=== PATIENT | female | born 1955 | race Caucasian/White ===

== ENCOUNTER → 2016-12-05 | Outpatient (CLI) | payer OTHER ==
[~2016-12-05] MED LIST: ACYC1CAP8 PO; AGM875 PO; CARB25TA12; CLR10; LRS10; MAGN400T6; POTA10CA28; PRLSR20; PRMUNK PO
[2016-12-05 15:30] LABS: URINE APPEARANCE CLEAR (CLEAR); URINE BILIRUBIN NEG (NEG); URINE COLOR YELLOW; URINE NITRITE NEG (NEG); URINE PH 5.5 (4.5-7.5); UROBILINOGEN NEG (NEG)
[2016-12-05 15:32] LABS: MANUAL MICROSCOPIC REQUIRED? NO; REVIEW REQ? NO
== END | disposition home or self-care (01) ==
LOC: C.LABSPEC 14:32
PROVIDERS: ATTEND Physician Assistant
DX: R39.9 Unspecified symptoms and signs involving the genitourinary system (principal); N89.8 Other specified noninflammatory disorders of vagina

== ENCOUNTER → 2017-02-09 | Outpatient (CLI) | payer OTHER ==
[2017-02-09 14:37] LABS: URINE APPEARANCE CLEAR (CLEAR); URINE BILIRUBIN NEG (NEG); URINE COLOR YELLOW; URINE EPITHELIAL CELL AUTO >30 /lpf (0-5); URINE NITRITE POS (NEG); URINE SPECIFIC GRAVITY 1.019 (1.000-1.030); UROBILINOGEN NEG (NEG)
[2017-02-09 14:45] LABS: MANUAL MICROSCOPIC REQUIRED? NO; REVIEW REQ? NO
== END | disposition home or self-care (01) ==
LOC: C.LABSPEC 14:14
PROVIDERS: ATTEND Physician Assistant
DX: N89.8 Other specified noninflammatory disorders of vagina (principal); R39.9 Unspecified symptoms and signs involving the genitourinary system

== ENCOUNTER → 2017-04-07 | Outpatient (CLI) | payer OTHER ==
[~2017-04-07] MED LIST changes: +ACYC-57 PO; -ACYC1CAP8 PO
== END | disposition home or self-care (01) ==
LOC: C.LABSPEC 14:53
PROVIDERS: ATTEND Obstetrics & Gynecology
DX: N39.0 Urinary tract infection, site not specified (principal)

== ENCOUNTER → 2017-04-07 | Outpatient (CLI) | payer OTHER | END | disposition home or self-care (01) | LOC: C.PATHSPEC 13:18 | PROVIDERS: ATTEND Obstetrics & Gynecology | DX: N90.1 Moderate vulvar dysplasia (principal) ==

== ENCOUNTER 2017-05-02 11:37 | Inpatient (IN) | payer OTHER ==
[~2017-05-02] VITALS: Ht 165.1 cm; Wt 59.5 kg
[2017-05-02] MEDS ORDERED: CYCLOBENZAPRINE HCL 10 MG TAB PO STA (12:20)
[2017-05-02] MEDS ORDERED: SODIUM CHLORIDE 0.9% 500ML 500 ML IV STA (12:20)
--- NOTE | 2017-05-02 12:33 | EMERGENCY ROOM VISIT NOTE ---
History Report prepared by Luis: Phil Kemp Under the Supervision of: Dr. Tee Dawson M.D. 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 She notes that she went to put out her cigarette and she slipped backwards onto a wooden ramp. She notes that she landed on her back. She notes back pain and spasms. She currently rates her pain a 7/10 in severity. She notes chills and a mild cough recently. She denies any LOC, head injuries, leg pain, or fevers. EMS administered 50 mcg Fentanyl and 4 mg of Zofran. She denies any history of COPD. She denies any history of lung disease. She takes Tramadol as needed. Source of History: patient, EMS Onset: TROUBLE SHOOTING MECHANIC Position: other (global ) Symptom Intensity: 7/10 Quality: other (mechanical fall) Timing: other (episodic) Associated Symptoms: + chills, + cough (mild), + back pain, No LOC, No fevers Note: She denies any head injuries or leg pain. Review of Systems See HPI for pertinent positives & negatives. A total of 10 systems reviewed and were otherwise negative. Past Medical & Surgical Medical Problems: (1) Back pain (2) HTN (hypertension) Family History No pertinent family history obtained. Social History Smoking Status: Current Every Day Smoker Current/Historical Medications Scheduled Calcium Carbonate-Vitamin D (Calcium + D3 600-200 mg-Unit), 1 TAB PO DAILY Potassium Chloride (Micro-K Ext Rel), 10 MEQ PO BID Ranitidine Hcl (Ranitidine Hcl), 150 MG PO BID Scheduled PRN Docusate Sodium (Docusate Sodium), 100 MG PO DAILY PRN for Constipation Tramadol (Ultram), 50 MG PO Q6H PRN for Pain Allergies Coded Allergies: Benzodiazepines (Unverified Allergy, Mild, ITCH, 05/02/17) Chlordiazepoxide (Unverified Allergy, Mild, ITCH, 05/02/17) Clidinium (Unverified Allergy, Mild, ITCH, 05/02/17) Gabapentin (Unverified Allergy, Mild, ITCH, 05/02/17) Belladonna Alkaloids (Verified Allergy, Unknown, ITCHING, 05/02/17) Methscopolamine (Verified Allergy, Unknown, ., 05/02/17) Yellow Dye (Verified Allergy, Unknown, ., 05/02/17) Physical Exam Vital Signs Date Time Temp Pulse Resp B/P (MAP) Pulse Ox O2 Delivery O2 Flow Rate FiO2 05/02/17 13:40 72 18 119/52 99 Room Air 05/02/17 13:19 99 Nasal Cannula 3.0 05/02/17 11:40 36.6 78 20 144/71 94 Room Air Physical Exam GENERAL: Patient is in no acute distress. HEENT: No acute trauma, normocephalic atraumatic, mucous membranes moist, no nasal congestion, no scleral icterus. NECK: No stridor, no adenopathy, no meningismus, trachea is midline. LUNGS: Clear to auscultation bilaterally, no wheeze, no rhonchi, breath sounds equal. HEART: Without murmurs gallops or rubs, regular rate and rhythm. ABDOMEN: Soft, nontender, bowel sounds positive, no hernias, no peritonitis. BACK: No real focal tenderness to palpation in the lumbar region, no step offs. Severe pain in lumbar region with movement. EXTREMITIES: No cyanosis or edema, full range of motion of all the joints without pain or difficulty, no signs for acute trauma. NEUROLOGIC: Oriented x 3, no acute motor or sensory deficits, no focal weakness. SKIN: No rash, no jaundice, no diaphoresis. Medical Decision & Procedures ER Provider Diagnostic Interpretation: Radiology results as stated below per my review and radiologist interpretation: LUMBAR SPINE WITHOUT CT DOSE: 617.22 mGy.cm HISTORY: Trauma. Pain. fall, pain TECHNIQUE: Multiaxial CT images of the lumbar spine were performed and reformatted in the sagittal and coronal plane without the use of contrast. A dose lowering technique was utilized adhering to the principles of ALARA. COMPARISON: None. FINDINGS: Mild 20% compression deformity superior endplate L2. 3 mm posterior displacement of the posterior superior margin of the L2 vertebral body. Impact upon the spinal canal is minimal. Moderate degenerative disc change throughout the remainder of the lumbar region. Degenerative concavity inferior endplate L3. No additional acute bony abnormality. No significant component of spinal stenosis. Paravertebral soft tissues are unremarkable. IMPRESSION: 1. 20% mild compression deformity superior endplate L2. 2. Slight posterior displacement superior margin L2 vertebral endplate estimated at 3 mm. 3. No significant compromise of the spinal canal or neural foramina. 4. Moderate degenerative change all remaining components of the lumbar spine most prominent inferior endplate L3. This is considered nonacute. Electronically signed by: Arnold Rodriguez M.D. 05/02/2017 1:41 PM Dictated Date/Time: 05/02/2017 1:35 PM Laboratory Results 05/02/17 13:40 05/02/17 13:40 Test 05/02/17 13:13 05/02/17 13:40 Influenza Type A Antigen Neg for Influ A (NEG) Influenza Type B Antigen Neg for Influ B (NEG) Red Blood Count 4.24 M/uL (4.2-5.4) Mean Corpuscular Volume 93.4 fL (80-100) Mean Corpuscular Hemoglobin 30.9 pg (25-34) Mean Corpuscular Hemoglobin Concent 33.1 g/dl (32-36) RDW Standard Deviation 49.0 fL (36.4-46.3) RDW Coefficient of Variation 14.4 % (11.5-14.5) Mean Platelet Volume 9.7 fL (7.4-10.4) Anion Gap 3.0 mmol/L (3-11) Est Creatinine Clear Calc Drug Dose 54.2 ml/min Estimated GFR () 72.2 Estimated GFR (Non- 62.3 BUN/Creatinine Ratio 17.0 (10-20) Calcium Level 9.0 mg/dl (8.5-10.1) Magnesium Level 2.1 mg/dl (1.8-2.4) Laboratory results reviewed by me. Medications Administered Medications (Trade) Dose Ordered Sig/Mendoza Route Start Time Stop Time Status Last Admin Dose Admin Morphine Sulfate (MoRPHine SULFATE INJ) 4 mg Q15M PRN IV 05/02/17 12:30 05/16/17 12:29 05/02/17 13:47 4 MG Cyclobenzaprine HCl (Flexeril Tab) 10 mg NOW STAT PO 05/02/17 12:20 05/02/17 12:25 DC 05/02/17 12:20 10 MG Sodium Chloride 500 ml @ 999 mls/hr Q31M STAT IV 05/02/17 12:20 05/02/17 13:06 DC 05/02/17 12:20 999 MLS/HR ED Course 1212: The patient was evaluated in room A11A. A complete history and physical exam was performed. 1220: Ordered Sodium Chloride 500 ml @ 999 mls/hr IV and Flexeril 10 mg PO 1230: Ordered Morphine Sulfate 4 mg IV 1406: I spoke with Dr. Hoover, orthopedic surgeon. We discussed the patients case. He will consult with the patient. 1412: I spoke with Bony Malcolm PA-C. We discussed the patients case. The patient will be evaluated by the [facility] for further management. Medical Decision The patient is a 61 year old female who presents to the ED with complaints of mechanical fall. Differential diagnoses considered include lumbar compression, fracture, lumbar spasm, lumbar disc herniation, nerve impingement, PNA, viral illness, and influenza. There is no leukocytosis or concerning anemia. No significant electrolyte abnormality or kidney failure. Influenza testing is negative. Chest film does not show any obvious pneumonia. Lumbar spine CT shows an L2 compression fracture with some minimal posterior bony displacement. On exam, the patient did not have any focal neurologic deficits. She was not febrile or toxic. She had intense lower back pain with any movement. The patient received IV morphine, she was given oral Flexeril. With her amount of pain, with the new findings of compression fracture, a hospital stay is required. I did discuss the case with the on-call spinal surgeon as well as the on-call hospitalist. Case management has been involved. Medication Reconcilliation Current Medication List: was personally reviewed by me Blood Pressure Screening Patient's blood pressure: Elevated blood pressure Blood pressure disposition: Elevated BP felt to be situational Consults Time Called: 1403 Consulting Physician: Dr. Hoover, orthopedic surgeon Returned Call: [address] Hoover orthopedic surgeon. We discussed the patients case. He will consult with the patient. Additional Consults: Time Called: 1409 Consulted Physician: Bony Malcolm PA-C Returned Call: 1412 Additional Comments: I spoke with Bony Malcolm PA-C. We discussed the patients case. Impression Primary Impression: Compression fracture of L2 Additional Impression: Fall Scribe Attestation The scribe's documentation has been prepared under my direction and personally reviewed by me in its entirety. I confirm that the note above accurately reflects all work, treatment, procedures, and medical decision making performed by me. Departure Information Dispostion Being Evaluated By Hospitalist Referrals Ludwig Garcia D.OMorelia (PCP) Patient Instructions My [facility] Health Problem Qualifiers Primary Impression: Compression fracture of L2 Additional Impression:
[2017-05-02] MEDS ORDERED: RANI150C4 PO (12:59)
[2017-05-02] MEDS ORDERED: DOCU100C31 PO (12:59)
[2017-05-02] MEDS ORDERED: TRAM-10 PO (12:59)
[2017-05-02] MEDS ORDERED: POTA10CA28 PO (12:59)
[2017-05-02] MEDS ORDERED: CALC500C70 PO (12:59)
[2017-05-02] MEDS: MoRPHine SULFATE 4 MG/ML 1 ML CARP\\VIAL IV PRN ×2 (13:11→13:47)
--- NOTE | 2017-05-02 13:42 | DIAGNOSTIC IMAGING REPORT ---
LUMBAR SPINE WITHOUT CT DOSE: 617.22 mGy.cm HISTORY: Trauma. Pain. fall, pain TECHNIQUE: Multiaxial CT images of the lumbar spine were performed and reformatted in the sagittal and coronal plane without the use of contrast. A dose lowering technique was utilized adhering to the principles of ALARA. COMPARISON: None. FINDINGS: Mild 20% compression deformity superior endplate L2. 3 mm posterior displacement of the posterior superior margin of the L2 vertebral body. Impact upon the spinal canal is minimal. Moderate degenerative disc change throughout the remainder of the lumbar region. Degenerative concavity inferior endplate L3. No additional acute bony abnormality. No significant component of spinal stenosis. Paravertebral soft tissues are unremarkable. IMPRESSION: 1. 20% mild compression deformity superior endplate L2. 2. Slight posterior displacement superior margin L2 vertebral endplate estimated at 3 mm. 3. No significant compromise of the spinal canal or neural foramina. 4. Moderate degenerative change all remaining components of the lumbar spine most prominent inferior endplate L3. This is considered nonacute. Electronically signed by: Arnold Rodriguez M.D. 05/02/2017 1:41 PM Dictated Date/Time: 05/02/2017 1:35 PM
[2017-05-02 14:22] LABS: HEMATOCRIT 39.6 % (37-47); HEMOGLOBIN 13.1 g/dL (12.0-16.0); MEAN CELL VOLUME 93.4 fL (80-100); MEAN CORPUSCULAR HEMOGLOBIN 30.9 pg (25-34); MEAN CORPUSCULAR HGB CONC 33.1 g/dl (32-36); MEAN PLATELET VOLUME 9.7 fL (7.4-10.4); PLATELET COUNT 283 K/uL (130-400); RED CELL DISTRIBUTION WIDTH CV 14.4 % (11.5-14.5); WHITE BLOOD COUNT 10.69 K/uL (4.8-10.8)
[2017-05-02 14:25] LABS: INFLUENZA B ANTIGEN Neg for Influ B (NEG)
[2017-05-02 14:27] LABS: CREATININE 0.98 mg/dl (0.60-1.20); POTASSIUM 4.3 mmol/L (3.5-5.1)
--- NOTE | 2017-05-02 14:31 | DIAGNOSTIC IMAGING REPORT ---
CHEST ONE VIEW PORTABLE CLINICAL HISTORY: cough dyspnea COMPARISON STUDY: 11/22/2011 FINDINGS: Slight prominence left basilar parenchymal markings. Lungs otherwise appear clear. There are no consolidative infiltrates. Diaphragms smooth. Costophrenic angles are sharp. IMPRESSION: Mild left basilar bronchitis. The above report was generated using voice recognition software. It may contain grammatical, syntax or spelling errors. Electronically signed by: Arnold Rodriguez M.D. 05/02/2017 2:29 PM Dictated Date/Time: 05/02/2017 2:28 PM
[2017-05-02] MEDS ORDERED: ACETAMINOPHEN 325 MG TAB PO PRN (15:00)
[2017-05-02] MEDS ORDERED: ONDANSETRON INJ 2 MG/ML 2 ML VIAL IV PRN (15:00)
[2017-05-02] MEDS ORDERED: POLYETHYLENE (MIRALAX) 17 GM PACK PO PRN (15:00)
[2017-05-02] MEDS ORDERED: CALC-388 PO (15:06)
[2017-05-02] MEDS ORDERED: DOCUSATE SODIUM 100 MG CAP PO PRN (15:15)
[2017-05-02] MEDS ORDERED: IV FLUIDS COMPLETED PRN (15:15)
[2017-05-02 15:26] VITALS: O2SAT 97
--- NOTE | 2017-05-02 16:05 | NUR ---
OBS: Patient alert to person and place. Denies numbness or tingling. No edema, strong equal pedal and radial pulses, brisk cap refill. Lungs are clear on 2L NC. Bowel sounds present in all quadrants, passing gas, LBM 12/25. Have not visualized urine yet. Saline lock left hand. Skin is intact. Complains of sharp pain when moving, repositioned patient, and she was comfortable resting in bed. Patient wears glasses and dentures, dentures not present at this time. Patient plans to be discharged to her brothers house.
[2017-05-02 16:09] VITALS: BP 135/78; PULSE 75; TEMP 36.8; O2SAT 99
--- NOTE | 2017-05-02 16:16 | History and Physical ---
History & Physical Date & Time of Service: May 02, 2017 at 15:20 Chief Complaint: Fall, Lumbar pain Primary Care Physician: Ludwig Garcia D.O. History of Present Illness Source: patient, clinic records, hospital records Pt is 61 y/o F with PMH cervical CA with shukri to bone s/p chemo & radiation tx in the and HSV presented to ER via EMS with c/o mid/lower back pain. Pt states this morning she was outside smoking a cigarette and turned and slipped and fell landing first on her buttocks then her back. C/O pain to mid/lower back with any movement and reports is unable to move or walk secondary to pain. Pt with hx intertermittent chronic low back pain since CA dx and reports has tramadol to use prn, however doesn't use very often. She can ambulated and perform ADL's without difficulty normally. Pt denies hitting head and denies any other injury. Denies KISER, dizziness, syncope, LOC, vision changes, neck pain , upper extremity pain, lower extremity pain, extremity weakness or paresthesias , loss control of bowel/bladder, N/V/D, abdominal pain. In ER pt had Lumbar CT scan showing 20% compression fracture of L2 and Dr Sneha rodriguez was consulted. Reported that pt received fentanyl 50mcg and zofran 4mg IV en route by EMS and pt received morphine 4mg IV, flexeril, 500ml bolus NSS in ER. Pt unable to ambulate secondary to pain. 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 Treated in [place]. Dr Cespedes. Chemo and radiation. R hip pinning Status: Chronic (2) History of chemotherapy Permanent Comment: Status: Resolved (3) Hx of radiation therapy Permanent Comment: Status: Resolved (4) Recurrent vulvovaginal herpes simplex Status: Chronic (5) RLS (restless legs syndrome) Status: Chronic (6) Vulvar neoplasm Status: Chronic Surgical Problems: (1) Hx of hysterectomy Status: Resolved (2) Hx of oophorectomy Status: Resolved Family History Cancer MOTHER (CA lung, throat - age 72) FH: CAD (coronary artery disease) FATHER ([place] - age 50's. age 59) Social History Smoking Status: Current Every Day Smoker (smoke 1/2 ppd x 38 years) Smokeless Tobacco Use: No Alcohol Use: none Drug Use: none Housing status: lives alone Multi-Drug Resistant Organisms History of MDRO: No Allergies Coded Allergies: Benzodiazepines (Unverified Allergy, Mild, ITCH, 05/02/17) Chlordiazepoxide (Unverified Allergy, Mild, ITCH, 05/02/17) Clidinium (Unverified Allergy, Mild, ITCH, 05/02/17) Gabapentin (Unverified Allergy, Mild, ITCH, 05/02/17) Belladonna Alkaloids (Verified Allergy, Unknown, ITCHING, 05/02/17) Methscopolamine (Verified Allergy, Unknown, ., 05/02/17) Yellow Dye (Verified Allergy, Unknown, ., 05/02/17) Home Medications Scheduled Calcium Carbonate-Vitamin D (Calcium + D3 600-200 mg-Unit), 1 TAB PO DAILY Potassium Chloride (Micro-K Ext Rel), 10 MEQ PO BID Ranitidine Hcl (Ranitidine Hcl), 150 MG PO BID Scheduled PRN Docusate Sodium (Docusate Sodium), 100 MG PO DAILY PRN for Constipation Tramadol (Ultram), 50 MG PO Q6H PRN for Pain Review of Systems Constitutional: No fever, No chills, No sweats, No weight loss, No weakness, No fatigue Eyes: No worsening of vision, No eye pain, No redness, No discharge, No diplopia ENT: No hearing loss, No unusual epistaxis, No nasal symptoms, No sore throat, No tinnitus Respiratory: No cough, No sputum, No wheezing, No shortness of breath, No dyspnea on exertion, No dyspnea at rest Cardiovascular: No chest pain, No orthopnea, No PND, No edema, No palpitations Abdomen: No pain, No nausea, No vomiting, No diarrhea, No constipation Musculoskeletal: + problem reported (see HPI) Genitourinary - Female: No dysuria, No urinary frequency, No urinary urgency, No urinary incontinence, No urinary retention, No hematuria, No rash, No vaginal discharge, No vaginal itching Psychiatric: No depression symptoms, No anxiety Endocrine: No fatigue, No excessive thirst, No excessive urination Hematologic / Lymphatic: No abnormal bleeding/bruising, No clotting problems Integumentary: No itch Physical Exam Vital Signs Date Time Temp Pulse Resp B/P (MAP) Pulse Ox O2 Delivery O2 Flow Rate FiO2 05/02/17 13:40 72 18 119/52 99 Room Air 05/02/17 13:19 99 Nasal Cannula 3.0 05/02/17 11:40 36.6 78 20 144/71 94 Room Air General Appearance: WD/WN, no apparent distress Head: normocephalic, atraumatic Eyes: normal inspection, PERRL, EOMI, sclerae normal ENT: hearing grossly normal, pharynx normal Neck: supple, no JVD, trachea midline, + pertinent finding (no spinous process tenderness to palpation. ROM intact without tenderness) Respiratory/Chest: chest non-tender, lungs clear, normal breath sounds, no respiratory distress, no accessory muscle use Cardiovascular: regular rate, rhythm, no edema, normal peripheral pulses Abdomen/GI: normal bowel sounds, non tender, soft Back: no CVA tenderness, + pertinent finding (+midline tenderness to palpation lower thoracic and upper to mid lumbar region to palpation. Very limited ROM of back to rotation secondary to discomfort, pt unable to flex secondary to discomfort. Straight leg raise bilaterally to approx 40 degrees. bilateral LE wihtout erythema, edema, ecchymosis, non-tender, ROM intact to bilateral hips, knees, ankles, sensation to light touch intact, distal pulses intact, brisk capillary refill. Bilateral upper extremities without edema/erythema/ecchymosis , ROM intact, non-tender, distal pulses intact, brisk capillary refill, sensation to light touch intact.) Neurologic/Psych: alert, normal mood/affect, normal reflexes, oriented x 3 Skin: normal color, warm/dry Diagnostics Laboratory Results Results Past 24 Hours Test 05/02/17 13:13 05/02/17 13:40 Range/Units Influenza Type A Antigen Neg for Influ A NEG Influenza Type B Antigen Neg for Influ B NEG White Blood Count 10.69 4.8-10.8 K/uL Red Blood Count 4.24 4.2-5.4 M/uL Hemoglobin 13.1 12.0-16.0 g/dL Hematocrit 39.6 37-47 % Mean Corpuscular Volume 93.4 80-100 fL Mean Corpuscular Hemoglobin 30.9 25-34 pg Mean Corpuscular Hemoglobin Concent 33.1 32-36 g/dl RDW Standard Deviation 49.0 36.4-46.3 fL RDW Coefficient of Variation 14.4 11.5-14.5 % Platelet Count 283 130-400 K/uL Mean Platelet Volume 9.7 7.4-10.4 fL Sodium Level 137 136-145 mmol/L Potassium Level 4.3 3.5-5.1 mmol/L Chloride Level 106 98-107 mmol/L Carbon Dioxide Level 28 21-32 mmol/L Anion Gap 3.0 3-11 mmol/L Blood Urea Nitrogen 17 7-18 mg/dl Creatinine 0.98 0.60-1.20 mg/dl Est Creatinine Clear Calc Drug Dose 54.2 ml/min Estimated GFR () 72.2 Estimated GFR (Non- 62.3 BUN/Creatinine Ratio 17.0 10-20 Random Glucose 98 70-99 mg/dl Calcium Level 9.0 8.5-10.1 mg/dl Magnesium Level 2.1 1.8-2.4 mg/dl Diagnostic Radiology CXR: FINDINGS: Slight prominence left basilar parenchymal markings. Lungs otherwise appear clear. There are no consolidative infiltrates. Diaphragms smooth. Costophrenic angles are sharp. CT LUMBAR SPINE: IMPRESSION: 1. 20% mild compression deformity superior endplate L2. 2. Slight posterior displacement superior margin L2 vertebral endplate estimated at 3 mm. 3. No significant compromise of the spinal canal or neural foramina. 4. Moderate degenerative change all remaining components of the lumbar spine most prominent inferior endplate L3. This is considered nonacute. Impression Assessment and Plan COMPRESSION FRACTURE L2/BACK PAIN Pt with fall this am with back pain with inability to ambulate secondary to back pain. In ER CT Lumbar spine: 20% mild compression deformity superior endplate L2. 2. Slight posterior displacement superior margin L2 vertebral endplate estimated at 3 mm. 3. No significant compromise of the spinal canal or neural foramina. 4. Moderate degenerative change all remaining components of the lumbar spine most prominent inferior endplate L3. This is considered nonacute. Pt given fentanyl 50mcg, zofran 4mg, morphine 4mg and flexeril with continued pain. -Admit med/surg for pain control and assistance to return to ambulation -morphine prn pain -Flexeril prn muscle spasm -lidocaine patch -ortho consult -PT/OT when appropriate GERD -continue H2 mary TOBACCO USE -nicotine patch -smoking cessation discussed DVT PROPHYLAXIS -Lovenox SQ DISPOSITION -admit med/surg -Full Code as per discussion with pt -Follows with Dr Garcia for routine care Pt was seen with Dr Mcfarlane. See addendum Attending Addendum: The patient was seen and examined S/P Mechanical Fall with Bach pain and Closed fracture of the Superior Endplate of L2 No Radiculopathy symptoms and no bowel ,bladder problems O/E : In moderate pain Hemodynamically stable Chest-clear to auscultate bilaterally Heart-regular,no murmur appreciated Abdomen-benign TEACHER-AAOx3 Has Localized back pain without any radiation of the pain No Focal sensory and or motor deficit Labs and imaging studies were reviewed Compression Fracture Superior Endplate of L2,no radiculopathy-Ortho consulted Agree with the assessment and plan. Dr Nick Mcfarlane Level of Care Med/Surg Resuscitation Status FULL RESUSCITATION VTE Prophylaxis VTE Risk Assessment Done? Y/N: Yes Risk Level: Moderate Given or contraindicated: Enoxaparin (Lovenox)SQ Additional Copies To Ludwig Garcia, D.O.
[2017-05-02 16:54] LABS: INR 0.9 (0.9-1.1)
[2017-05-02] MEDS: NICOTINE 14 MG/24 HR TDSY TD SCH (17:00)
[2017-05-02] MEDS: ENOXAPARIN 40 MG/0.4 ML SYR SQ SCH (17:59)
[2017-05-02] MEDS: LIDODERM (LIDOCAINE) PATCH 5% TD SCH (18:00)
[2017-05-02 18:14] VITALS: BP 135/78; PULSE 75; TEMP 36.8; Ht 165.1 cm; Wt 59.5 kg
[2017-05-02] MEDS ORDERED: SODIUM CHLORIDE 0.9% 1000ML 1,000 ML IV SCH (19:15)
--- NOTE | 2017-05-02 20:00 | NUR ---
OBS/ The patient has demonstrated progress toward goals and readiness for discharge as demonstrated by: Patient alert to person and place only. She had 2 periods of extreme lethargy and confusion after standing. Orthostatic BP and pulse were obtained and IV fluids were started. Left hand PIV running per MD orders. Denies numbness or tingling. No edema, strong equal radial and pedal pulses, brisk cap refill. Lungs clear on 2L NC. Bowel sounds present in all quadrants, passing gas, LBM 12/25. Voiding clear yellow urine with strong odor in the toilet. Patient ambulated to toilet with a walker and assist of 2. Skin is intact. Patient tolerating diet well. Complains of pain that was relieved with distraction and repositioning. Patient able to name the medications she was taking at home but states she hasn't taken them in the last week, states she is not out of the medications, she just has not taken them. Patient plans to be discharged to her brothers house.
--- NOTE | 2017-05-02 20:29 | NUR ---
A: [employer] message sent to Dr. Thomas questioning order for Foster insertion. Pt ambulating to the toilet and voiding in a hat. says to "hold off on insertion for now".
[2017-05-02] MEDS: RANITIDINE HCL 150 MG TAB PO SCH (20:58)
[2017-05-02] MEDS: POTASSIUM CHLORIDE 10 MEQ TABCR PO SCH (20:58)
[2017-05-02 21:13] VITALS: BP_SYST 113; BP_SYST 129; BP_SYST 96; BP_DIAS 58; BP_DIAS 60; BP_DIAS 75; PULSE 79; PULSE 80; PULSE 86; O2SAT 95
[2017-05-02 22:55] VITALS: BP_SYST 116; BP_SYST 121; BP_SYST 126; BP_DIAS 71; BP_DIAS 72; PULSE 75; PULSE 76; PULSE 83; TEMP 36.8; O2SAT 98
[2017-05-03] MEDS: CYCLOBENZAPRINE HCL 5 MG TAB PO PRN ×3 (00:01→18:45)
--- NOTE | 2017-05-03 01:00 | NUR ---
OBS Note: patient resting in bed. alert and oriented x4. c/o back pain 10/15, see emar. IVF infusing as ordered. lungs clear on 2L, denies cough, shortness of breath or chest pain. positive bowel sounds, passing flatus, denies nausea/vomiting. tolerating regular diet. pulses palpable, denies numbness/tingling. oob with 2 assist and walker to void. discharge uncertain at this time. call galarza in reach. will continue to monitor.
--- NOTE | 2017-05-03 04:23 | NUR ---
OBS Note: patient resting in bed. assessment unchanged. call galarza in reach. will continue to monitor.
[2017-05-03] MEDS: MoRPHine SULFATE 2 MG/ML CARP IV PRN ×3 (06:09→22:36)
[2017-05-03 07:15] VITALS: BP 122/64; PULSE 73; TEMP 36.8; O2SAT 94
--- NOTE | 2017-05-03 08:00 | ORTHOPEDIC CONSULTATION ---
DATE OF ADMISSION: 05/02/2017 CHIEF COMPLAINT: Back pain. HISTORY OF PRESENT ILLNESS: Sarah is delightful. I met her this morning on rounds at approximately 6:30 with a small injury via fall, slipped, landing on her buttock area, suffered an L2 compression fracture. The medical team was kind enough to admit her to the hospital. PAST MEDICAL HISTORY: Positive for cervical carcinoma, past chemotherapy and radiation. PAST SURGICAL HISTORY: Hysterectomy, oophorectomy. FAMILY HISTORY: Mother with throat CA. SOCIAL HISTORY: She is a current smoker, no alcohol use, no drug use. ALLERGIES: Reviewed. REVIEW OF SYSTEMS: She denies any fevers, sweats, chills, weight loss or gain. Ears, nose and throat negative. Denies any hearing difficulties. Denies chest pain or shortness of breath. No urgency, frequency, dysuria or loss of bowel or bladder function. PHYSICAL EXAMINATION: VITAL SIGNS: Stable 120/60 blood pressure. HEENT: Pupils react to light and accommodation. CHEST: Normal. ABDOMEN: Soft, nontender, bowel sounds present. NEUROLOGIC: Some pain with percussion of lumbar spine, mild to moderate. IMAGING STUDIES: Images demonstrated mild compression deformities, superior endplate of L2. I have reviewed the images and agree with the radiology report. There is no significant displacement. There is no compromise. There is no concern in my opinion for a metastatic disease. IMPRESSION: An L2 compression fracture. DISPOSITION: I will get her fitted for a brace today. I think she will be safe to go home later today or tomorrow morning with home care or family care. She will need somebody to be with her. She will be weightbearing as tolerated. I would suggest a walker. I would suggest a brace and will be ordering a brace in the next few minutes. RAAD
--- NOTE | 2017-05-03 08:28 | NUR ---
Contacted Kristofer Albarado's office and spoke to Lizbeth re: LSO off shelf brace. Kristofer will come see patient this afternoon after clinic.
[2017-05-03 08:45] VITALS: O2SAT 89
[2017-05-03 08:50] VITALS: O2SAT 93
[2017-05-03] MEDS: NICOTINE 14 MG/24 HR TDSY TD SCH (09:00)
[2017-05-03] MEDS ORDERED: CALCIUM CARBONATE VITAMIN D PO SCH (09:00)
[2017-05-03] MEDS ORDERED: [UNRECOGNIZED DRUG - OTHER] PO SCH (09:00)
[2017-05-03] MEDS: RANITIDINE HCL 150 MG TAB PO SCH ×2 (09:03→21:34)
[2017-05-03] MEDS: POTASSIUM CHLORIDE 10 MEQ TABCR PO SCH ×2 (09:03→21:35)
[2017-05-03] MEDS: LIDODERM (LIDOCAINE) PATCH 5% TD SCH (09:06)
[2017-05-03] MEDS ORDERED: FLX5 PO (11:49)
[2017-05-03] MEDS ORDERED: MRLP17X PO (11:49)
--- NOTE | 2017-05-03 11:57 | Discharge Instructions ---
Discharge Instructions Date of Service May 03, 2017. Admission Reason for Admission: Back Pain, Compression Fx Of L2 Discharge Discharge Diagnosis / Problem: ACUTE COMPRESSION FRACTURE OF LUMBER 2 SPINE FRACTURE /JOSE ON CKD STAGE 3 Discharge Goals Goal(s): Increase independence, Improve disease control, Diagnostic testing, Therapeutic intervention Activity Recommendations Activity Limitations: as noted below ( TOLERATED ) Lifting Limitations: no more than 10 pounds (FOR 4 WEEKS /TILL FOLLOW UP WITH ORTHOPEDICS DR CARLSON ), until after follow-up appointment Exercise/Sports Limitations: until after follow-up appointment (WITH ORTHOPEDICS ) Shower/Bathe: no limitations Driving or Machine Use: resume 1 day after discharge (DO NOT DRIVE AFTER TAKING PAIN MEDICATION ) . Instructions / Follow-Up Instructions / Follow-Up HOSPITAL FOLLOW UP : 05/10/2017 1:00 PM Ludwig Garcia DO [facility] BASIC METABOLIC PANEL ON 05/09/2017 DO NOT TAKE NSAID'S -NO MOTRIN, ALEVE, ADVIL, IBUPROFEN, NAPROXEN -WILL CAUSE WORSENING OF RENAL FUNCTION FOLLOW UP WITH ORTHOPEDICS DR GARCIA IN 3-4 WEEKS WEIGHT BEARING TOLERATED ON BOTH LOWER EXTREMITIES USE ROLLING WALKER WHILE AMBULATING - USE LSO ( LUMBER SPINE ORTHOSIS ) BRACE WHILE OUT OF BED / WITH ACTIVITY - WALKING Current Hospital Diet Patient's current hospital diet: Regular Diet Discharge Diet Recommended Diet: Regular Diet Pending Studies Studies pending at discharge: no Medical Emergencies . Who to Call and When: Medical Emergencies: If at any time you feel your situation is an emergency, please call 911 immediately. . Non-Emergent Contact Non-Emergency issues call your: Primary Care Provider . . "Provider Documentation" section prepared by Kendy Spring. . VTE Core Measure Inpt VTE Proph given/why not?: Enoxaparin (Lovenox)SQ
[2017-05-03] MEDS ORDERED: MISC-573 (12:02)
--- NOTE | 2017-05-03 12:38 | NUR ---
Received referral to see Pt for discharge planning. Spoke with Pt. Pt lives at home alone. she states she will be staying with her brother after discharge. he will be able to help her as needed at home. Pt states her sister also lives in the same neighborhood as her brother and will be able to hep. pt states she has no equipment at home. She is awaiting a back brace from orthotics. Pt has pending PT/OT consult. She will likely need a walker at discharge. Requested script to order walker. Uncertain at this time if Pt will need home health. Her brother's address is [address] [place] [address] Case Management will order wheeled walker once script obtained. Will also check PT/OT notes to see if Pt will need home health at discharge. case Management will follow. Addendum: 05/03/17 at 1352 by Rukhsana MORALES Obtained script for walker. Spoke with Pt and sister, Sabina. They are requesting referral to [facility] for walker. Referral faxed to [facility] for walker to be delivered to the hospital.
[2017-05-03 15:30] VITALS: BP 111/66; PULSE 79; TEMP 36.8; O2SAT 94
--- NOTE | 2017-05-03 16:10 | NUR ---
Patient was seen today at bedside for fit and delivery of an [employer] LSO. The device was placed on the patient and adjusted for comfort. I have provided written information on donning and doffing as well as care and maintenance. The patient reports that the device is comfortable and that she understands the wearing instructions. I have also provided my contact information if adjustment is needed after discharge. Nursing please call Orthotics at extension [phone] if problems are experienced.
--- NOTE | 2017-05-03 17:06 | Progress Note ---
Internal Med Progress Note Date of Service: May 03, 2017. Provider Documentation: SUBJECTIVE: evaluated by Orthopedics Dr Hoover today no surgery needed recommend LSO fitted with Lumber spine Orthosis today cont PT/OT OBJECTIVE: Vital Signs-as noted below Exam: General-no sign of distress Eyes-sclera non icteric, PERRLA/EOMI ENT-moist oral mucosa, normal oropharynx Neck-no JVD , no thyromegaly , trachea midline Lungs-clear to auscultate , no wheeze or rales Heart-regular s1/S2 Abdomen-soft, non tender Extremities-no lower ext edema, no rash , point tenderness on low back Neuro-AAO x3, no focal neurological deficit Lab data as noted below. ASSESSMENT & PLAN: COMPRESSION FRACTURE L2/BACK PAIN s/p fall CT Lumbar spine: 20% mild compression deformity superior endplate L2. 2. Slight posterior displacement superior margin L2 vertebral endplate estimated at 3 mm. 3. No significant compromise of the spinal canal or neural foramina. 4. Moderate degenerative change all remaining components of the lumbar spine most prominent inferior endplate L3. -orthopedics consulted , no surgical intervention needed -recommend Orthosis /LSO -orthotic consulted -wt bearing as tolerated -use rolling walker to ambulate follow up with Dr Hoover in 4-6 weeks in office GERD -continue H2 mary TOBACCO USE -nicotine patch -smoking cessation discussed DVT PROPHYLAXIS -Lovenox SQ FULL CODE DISPOSITION -discharge home tomorrow -Hospital follows with Dr Ludwig Garcia Vital Signs: Date Time Temp Pulse Resp B/P (MAP) Pulse Ox O2 Delivery O2 Flow Rate FiO2 05/03/17 15:50 Room Air 05/03/17 15:30 36.8 79 18 111/66 (81) 94 Room Air 05/03/17 07:30 Room Air 05/03/17 07:15 36.8 73 16 122/64 (83) 94 Nasal Cannula 2.0 05/02/17 23:15 Nasal Cannula 2.0 05/02/17 22:55 36.8 76 18 121/71 (88) 98 Nasal Cannula 2.0 75 116/72 (87) 83 126/72 (90) 05/02/17 21:13 129/75 (93) 95 2.0 80 113/60 (77) 86 96/58 (71) 79
[2017-05-03] MEDS: ENOXAPARIN 40 MG/0.4 ML SYR SQ SCH (18:45)
[2017-05-03 22:59] VITALS: BP 134/75; PULSE 81; TEMP 36.8; O2SAT 93
[2017-05-04] MEDS: MoRPHine SULFATE 2 MG/ML CARP IV PRN (03:21)
[2017-05-04 07:21] VITALS: BP 145/77; PULSE 73; TEMP 36.9; O2SAT 93
[2017-05-04] MEDS: NICOTINE 14 MG/24 HR TDSY TD SCH (09:00)
[2017-05-04] MEDS: POTASSIUM CHLORIDE 10 MEQ TABCR PO SCH ×2 (09:23→20:32)
[2017-05-04] MEDS: RANITIDINE HCL 150 MG TAB PO SCH ×2 (09:23→20:32)
[2017-05-04] MEDS: LIDODERM (LIDOCAINE) PATCH 5% TD SCH (09:23)
[2017-05-04] MEDS ORDERED: OXYCODONE/ACETAMINOPHEN 5-325 TAB PO PRN (09:45)
--- NOTE | 2017-05-04 09:48 | NUR ---
Reviewed chart. Spoke with Pt. Pt's walker was delivered yesterday. Spoke with Pt about home health. She is agreeable to referral to [facility]. Pt will be staying with her brother at discharge. Will notify [facility] of where Pt will be staying. Referral given to [facility] liaison. Pt is for possible discharge later today. Case Management will follow.
--- NOTE | 2017-05-04 10:30 | NUR ---
A: Pt oob to chair. Reports that she remains in pain and that she just does not think she should be discharged to day. Sandra SINGH was giving her Percocet for pain. Pt said, "good, then I can go to sleep". She has her LSO in the room but not on at this time. She completed PT and did well. Going to stay with her brother in a trailer upon discharge. We discussed pain control, safety measures, and the need to stay mobile. We also discussed constipation prevention measures to use if needed. She reports having stool softeners already. No other issues or concerns at this time.
[2017-05-04] MEDS ORDERED: OXYCODONE/ACETAMINOPHEN 5-325 TAB ONE (10:35)
[2017-05-04 14:49] VITALS: BP 114/69; PULSE 78; TEMP 36.9; O2SAT 92
--- NOTE | 2017-05-04 16:31 | NUR ---
The patient has demonstrated progress toward goals and readiness for discharge as demonstrated by: pt. AOx4, clear lungs RA, VS stable, tolerating regular diet, hypoactive bowel sounds, passing gas, voiding in BR, 1 assist w walker, no IVF infusing per MD, pain managed with PRN pain medications. LSO brace in room by bed. Call galarza within reach. Plans to be D/C home to brothers house today.
--- NOTE | 2017-05-04 19:14 | Progress Note ---
Internal Med Progress Note Date of Service: May 04, 2017. Provider Documentation: SUBJECTIVE: fitted with LSO comfortable with putting on the brace back pain still persists difficult to get out of bed independently PT/OT eval requested , OBJECTIVE: Vital Signs-as noted below Exam: General-no sign of distress Eyes-sclera non icteric, PERRLA/EOMI ENT-moist oral mucosa, normal oropharynx Neck-no JVD , no thyromegaly , trachea midline Lungs-clear to auscultate , no wheeze or rales Heart-regular s1/S2 Abdomen-soft, non tender Extremities-no lower ext edema, no rash , point tenderness on low back Neuro-AAO x3, no focal neurological deficit Lab data as noted below. ASSESSMENT & PLAN: COMPRESSION FRACTURE L2/BACK PAIN s/p fall CT Lumbar spine: 20% mild compression deformity superior endplate L2. 2. Slight posterior displacement superior margin L2 vertebral endplate estimated at 3 mm. 3. No significant compromise of the spinal canal or neural foramina. 4. Moderate degenerative change all remaining components of the lumbar spine most prominent inferior endplate L3. -orthopedics consulted , no surgical intervention needed -recommend Orthosis /LSO -orthotic consulted pt fitted with LSO brace -wt bearing as tolerated -use rolling walker to ambulate -script given follow up with Dr Hoover in 4-6 weeks in office GERD -continue H2 mary TOBACCO USE -nicotine patch -smoking cessation discussed DVT PROPHYLAXIS -Lovenox SQ FULL CODE DISPOSITION -discharge home tomorrow -Hospital follows with Dr Ludwig Garcia Vital Signs: Date Time Temp Pulse Resp B/P (MAP) Pulse Ox O2 Delivery O2 Flow Rate FiO2 05/04/17 15:20 Room Air 05/04/17 14:49 36.9 78 18 114/69 (84) 92 Room Air 05/04/17 07:21 36.9 73 18 145/77 (99) 93 Room Air 05/04/17 07:20 Room Air 05/03/17 23:25 Room Air 05/03/17 22:59 36.8 81 20 134/75 (94) 93 Room Air
[2017-05-04] MEDS ORDERED: OXYC-57 PO (19:31)
[2017-05-04] MEDS: OXYCODONE/ACETAMINOPHEN 5-325 TAB PO PRN (22:08)
[2017-05-04 22:52] VITALS: BP 135/75; PULSE 82; TEMP 36.7; O2SAT 93
[2017-05-05] MEDS: OXYCODONE/ACETAMINOPHEN 5-325 TAB PO PRN ×2 (04:52→11:29)
[2017-05-05 07:00] LABS: HEMATOCRIT 35.5 % (37-47); HEMOGLOBIN 11.8 g/dL (12.0-16.0); MEAN CELL VOLUME 92.4 fL (80-100); MEAN CORPUSCULAR HEMOGLOBIN 30.7 pg (25-34); MEAN CORPUSCULAR HGB CONC 33.2 g/dl (32-36); MEAN PLATELET VOLUME 9.1 fL (7.4-10.4); PLATELET COUNT 218 K/uL (130-400); RED CELL DISTRIBUTION WIDTH CV 14.3 % (11.5-14.5); RED CELL DISTRIBUTION WIDTH SD 48.7 fL (36.4-46.3); WHITE BLOOD COUNT 6.49 K/uL (4.8-10.8)
[2017-05-05 07:05] VITALS: BP 105/68; PULSE 69; TEMP 36.6; O2SAT 96
[2017-05-05 07:27] LABS: CREATININE 1.35 mg/dl (0.60-1.20)
[2017-05-05] MEDS: NICOTINE 14 MG/24 HR TDSY TD SCH (08:16)
[2017-05-05] MEDS: RANITIDINE HCL 150 MG TAB PO SCH (09:15)
[2017-05-05] MEDS: POTASSIUM CHLORIDE 10 MEQ TABCR PO SCH (09:16)
[2017-05-05] MEDS: LIDODERM (LIDOCAINE) PATCH 5% TD SCH (09:16)
[2017-05-05] MEDS: CYCLOBENZAPRINE HCL 5 MG TAB PO PRN (09:24)
[2017-05-05 09:39] VITALS: BP 105/68; PULSE 69; TEMP 36.6; O2SAT 96
--- NOTE | 2017-05-05 09:44 | NUR ---
Reviewed chart. PT is for discharge to home today. Will give [facility] liaison discharge instructions when completed. Addendum: 05/05/17 at 1213 by Rukhsana MORALES Discharge instructions given to [facility] liaison.
--- NOTE | 2017-05-05 12:58 | Discharge Summary ---
Discharge Summary Date of Service May 05, 2017. Discharge Summary Admission Date: May 03, 2017 at 12:03 Discharge Date: May 04, 2017 Discharge Disposition: Home with services Principal Diagnosis: ACUTE COMPRESSION FRACTURE OF LUMBER 2 SPINE FRACTURE /JOSE ON CKD STAGE 3 Procedures: CT LUMBER SPINE WITHOUT CONTRAST : IMPRESSION: 1. 20% mild compression deformity superior endplate L2. 2. Slight posterior displacement superior margin L2 vertebral endplate estimated at 3 mm. 3. No significant compromise of the spinal canal or neural foramina. 4. Moderate degenerative change all remaining components of the lumbar spine most prominent inferior endplate L3. This is considered nonacute. Consultations: ORTHOPEDICS DR WHALEN Medication Reconciliation New Medications: Misc. Devices (Roller Walker) 1 Mis Mis EA, #1 Cyclobenzaprine HCl (Cyclobenzaprine HCl) 5 Mg Tab 5 MG PO TID PRN for Muscle Spasms for 30 Days, #90 TAB Oxycodone/Acetaminophen 5MG/325MG (Percocet 5MG/325MG) Tab 1 TAB PO Q8 PRN for Pain, #10 TAB PAIN Polyethylene (Miralax) 17 Gm Pow 17 GM PO DAILY PRN for Constipation for 30 Days over the counter continue to take as needed to prevent constipation while taking pain medication Continued Medications: Calcium Carbonate-Vitamin D (Calcium + D3 600-200 mg-Unit) 1 Tab Tab 1 TAB PO DAILY Docusate Sodium (Docusate Sodium) 100 Mg Cap 100 MG PO DAILY PRN for Constipation Potassium Chloride (Micro-K Ext Rel) 10 Meq Capcr 10 MEQ PO BID Ranitidine Hcl (Ranitidine Hcl) 150 Mg Cap 150 MG PO BID Tramadol (Ultram) 50 Mg Tab 50 MG PO Q6H PRN for Pain 'USES MAYBE ONCE OR TWICE A MONTH' Referrals At Discharge Follow up Referrals: Orthopedics Referral - Please Call For Appointment with Nima Hoover DO Physician Referral - 05/10/17 with Ludwig Garcia D.O. Admission Information HPI (per Admitting provider): Pt is 61 y/o F with PMH cervical CA with shukri to bone s/p chemo & radiation tx in the and HSV presented to ER via EMS with c/o mid/lower back pain. Pt states this morning she was outside smoking a cigarette and turned and slipped and fell landing first on her buttocks then her back. C/O pain to mid/lower back with any movement and reports is unable to move or walk secondary to pain. Pt with hx intertermittent chronic low back pain since CA dx and reports has tramadol to use prn, however doesn't use very often. She can ambulated and perform ADL's without difficulty normally. Pt denies hitting head and denies any other injury. Denies KISER, dizziness, syncope, LOC, vision changes, neck pain , upper extremity pain, lower extremity pain, extremity weakness or paresthesias , loss control of bowel/bladder, N/V/D, abdominal pain. In ER pt had Lumbar CT scan showing 20% compression fracture of L2 and Dr Sneha rodriguez was consulted. Reported that pt received fentanyl 50mcg and zofran 4mg IV en route by EMS and pt received morphine 4mg IV, flexeril, 500ml bolus NSS in ER. Pt unable to ambulate secondary to pain. Physical Exam (per Admitting): General Appearance: WD/WN, no apparent distress Head: normocephalic, atraumatic Eyes: normal inspection, PERRL, EOMI, sclerae normal ENT: hearing grossly normal, pharynx normal Neck: supple, no JVD, trachea midline, + pertinent finding (no spinous process tenderness to palpation. ROM intact without tenderness) Respiratory/Chest: chest non-tender, lungs clear, normal breath sounds, no respiratory distress, no accessory muscle use Cardiovascular: regular rate, rhythm, no edema, normal peripheral pulses Abdomen/GI: normal bowel sounds, non tender, soft Back: no CVA tenderness, + pertinent finding (+midline tenderness to palpation lower thoracic and upper to mid lumbar region to palpation. Very limited ROM of back to rotation secondary to discomfort, pt unable to flex secondary to discomfort. Straight leg raise bilaterally to approx 40 degrees. bilateral LE wihtout erythema, edema, ecchymosis, non-tender, ROM intact to bilateral hips, knees, ankles, sensation to light touch intact, distal pulses intact, brisk capillary refill. Bilateral upper extremities without edema/ erythema/ecchymosis, ROM intact, non-tender, distal pulses intact, brisk capillary refill, sensation to light touch intact.) Neurologic/Psych: alert, normal mood/affect, normal reflexes, oriented x 3 Skin: normal color, warm/dry Hospital Course back pain much improved comfortable with the LSO brace , rolling walker delivered to room feels ready to be discharged home Exam: General-no sign of distress Eyes-sclera non icteric, PERRLA/EOMI ENT-moist oral mucosa, normal oropharynx Neck-no JVD , no thyromegaly , trachea midline Lungs-clear to auscultate , no wheeze or rales Heart-regular s1/S2 Abdomen-soft, non tender Extremities-no lower ext edema, no rash , LSO brace present Neuro-AAO x3, no focal neurological deficit Physical Exam: General-no sign of distress Eyes-sclera non icteric, PERRLA/EOMI ENT-moist oral mucosa, normal oropharynx Neck-no JVD , no thyromegaly , trachea midline Lungs-clear to auscultate , no wheeze or rales Heart-regular s1/S2 Abdomen-soft, non tender Extremities-no lower ext edema, no rash , point tenderness on low back Neuro-AAO x3, no focal neurological deficit Last 8 Hrs Date Time Temp Pulse Resp B/P (MAP) Pulse Ox O2 Delivery O2 Flow Rate FiO2 05/05/17 11:40 Room Air 05/05/17 09:39 36.6 69 16 96 Room Air COMPRESSION FRACTURE L2/BACK PAIN s/p fall CT Lumbar spine: 20% mild compression deformity superior endplate L2. 2. Slight posterior displacement superior margin L2 vertebral endplate estimated at 3 mm. 3. No significant compromise of the spinal canal or neural foramina. 4. Moderate degenerative change all remaining components of the lumbar spine most prominent inferior endplate L3. -orthopedics consulted , no surgical intervention needed -recommend Orthosis /LSO -orthotic consulted pt fitted with LSO brace -wt bearing as tolerated -use rolling walker to ambulate -script given follow up with Dr Hoover in 4-6 weeks in office back pain tolerated after fitted with brace able to ambulate with walker in hallway arrangements made for home health visiting nurse stable to be discharged home JOSE ON CKD STAGE 3 ( GFR 30-59) Cr 0.98 ( 05/02/17 ) -> 1.35 ( 05/05/17 ) not sure of the cause -CT spine was done without contrast pt was not given any Diuretics or NSAID's during her hospital stay no report of GI loss or poor intake asked to increase fluid intake repeat Lab ;Basic Metabolic Panel on 05/09/17 pt is asked to avoid NSAID's GERD -continue H2 mary TOBACCO USE -nicotine patch -smoking cessation discussed DVT PROPHYLAXIS -Lovenox SQ FULL CODE DISPOSITION -discharge home today -Hospital follows with Dr Ludwig Garcia Total time spent on discharge = 40 mins This includes examination of the patient, discharge planning, medication reconciliation, and communication with other providers. Discharge Instructions Discharge Instructions Date of Service May 03, 2017. Admission Reason for Admission: Back Pain, Compression Fx Of L2 Discharge Discharge Diagnosis / Problem: ACUTE COMPRESSION FRACTURE OF LUMBER 2 SPINE FRACTURE /JOSE ON CKD STAGE 3 Discharge Goals Goal(s): Increase independence, Improve disease control, Diagnostic testing, Therapeutic intervention Activity Recommendations Activity Limitations: as noted below ( TOLERATED ) Lifting Limitations: no more than 10 pounds (FOR 4 WEEKS /TILL FOLLOW UP WITH ORTHOPEDICS DR CARLSON ), until after follow-up appointment Exercise/Sports Limitations: until after follow-up appointment (WITH ORTHOPEDICS ) Shower/Bathe: no limitations Driving or Machine Use: resume 1 day after discharge (DO NOT DRIVE AFTER TAKING PAIN MEDICATION ) . Instructions / Follow-Up Instructions / Follow-Up HOSPITAL FOLLOW UP : 05/10/2017 1:00 PM Ludwig Garcia, [facility] BASIC METABOLIC PANEL ON 05/10/2017 DO NOT TAKE NSAID'S -NO MOTRIN, ALEVE, ADVIL, IBUPROFEN, NAPROXEN -WILL CAUSE WORSENING OF RENAL FUNCTION FOLLOW UP WITH ORTHOPEDICS DR HOOVER IN 3-4 WEEKS WEIGHT BEARING TOLERATED ON BOTH LOWER EXTREMITIES USE ROLLING WALKER WHILE AMBULATING - USE LSO ( LUMBER SPINE ORTHOSIS ) BRACE WHILE OUT OF BED / WITH ACTIVITY - WALKING Current Hospital Diet Patient's current hospital diet: Regular Diet Discharge Diet Recommended Diet: Regular Diet Pending Studies Studies pending at discharge: no Medical Emergencies . Who to Call and When: Medical Emergencies: If at any time you feel your situation is an emergency, please call 911 immediately. . Non-Emergent Contact Non-Emergency issues call your: Primary Care Provider . . "Provider Documentation" section prepared by Kendy Spring. . VTE Core Measure Inpt VTE Proph given/why not?: Enoxaparin (Lovenox)SQ Additional Copies To Ludwig Garcia D.O. Sefter, Nima C., DO
== END 2017-05-05 13:30 | disposition home health service (06) | DRG 552 ==
LOC: EDBD 11:37 → C.EDA 11:38 → C.MSN 14:59 → EDBEDREQSVC 15:15 → ENRESERV 15:25 → OBSVTOIN 05-03 12:03
PROVIDERS: ADMIT Internal Medicine; ATTEND Hospitalist
DX: S32.020A Wedge compression fracture of second lumbar vertebra, initial encounter for closed fracture (principal); N17.9 Acute kidney failure, unspecified; I12.9 Hypertensive chronic kidney disease with stage 1 through stage 4 chronic kidney disease, or unspecified chronic kidney disease; N18.3 Chronic kidney disease, stage 3 (moderate); K21.9 Gastro-esophageal reflux disease without esophagitis; F17.210 Nicotine dependence, cigarettes, uncomplicated; Z79.899 Other long term (current) drug therapy; Z92.3 Personal history of irradiation; W01.0XXA Fall on same level from slipping, tripping and stumbling without subsequent striking against object, initial encounter; Z85.41 Personal history of malignant neoplasm of cervix uteri; Z85.830 Personal history of malignant neoplasm of bone; Z80.1 Family history of malignant neoplasm of trachea, bronchus and lung

== ENCOUNTER → 2017-09-07 | Outpatient (CLI) | payer OTHER ==
[~2017-09-07] MED LIST changes: -ACYC-57 PO; -AGM875 PO; +CALC-388 PO; -CARB25TA12; -CLR10; +DOCU100C31 PO; +FLX5 PO; -LRS10; -MAGN400T6; +MISC-573; +MRLP17X PO; +OXYC-57 PO; -POTA10CA28; +POTA10CA28 PO; -PRLSR20; -PRMUNK PO; +RANI150C4 PO; +TRAM-10 PO
== END | disposition home or self-care (01) ==
LOC: C.LABSPEC 13:27
PROVIDERS: ATTEND Obstetrics & Gynecology
DX: L29.2 Pruritus vulvae (principal); R35.0 Frequency of micturition

== ENCOUNTER 2022-05-09 19:42 | Inpatient (IN) ==
[2022-05-09] MEDS ORDERED: dexAMETHasone**PF** 10 MG/ML VIAL IM ONE (20:42)
[2022-05-09] MEDS ORDERED: KETOROLAC TROMETHAMINE 60 MG/2 ML VIAL IM STA (20:42)
[2022-05-10] MEDS ORDERED: DICLOFENAC SOD 1% GEL 100 GM TUBE EXT STA (00:10)
[2022-05-10] MEDS ORDERED: ACETAMINOPHEN 1,000 MG/100 ML VIAL IV STA (00:10)
--- NOTE | 2022-05-10 00:24 | Emergency Department Note ---
Impression & Plan Right hip pain, Ambulatory dysfunction, COVID-19 ED Provider Note NAME: SWETA CHACON AGE: 66 SEX: F ARRIVES VIA: Ambulance INFORMANT: Patient ED PROVIDER(S): Polo Starks MD CHIEF COMPLAINT: Right hip pain. PLAN: Disposition: Admit MEDICAL DECISION MAKING: The patient is a pleasant 66-year-old woman with a past medical history of arth ritis, restless leg syndrome, history of lumbar compression fracture, and right intertrochanteric hip fracture s/p ORIF who presents to the emergency department for evaluation of worsening right hip pain which has become severe where she is unable to ambulate even with her walker. She was seen in the emergency department approximately 2 weeks ago for similar symptoms and had unremarkable x-rays. She reports she had a scheduled appointment with her primary care doctor tomorrow however because of the pain becoming so severe and her inability to walk presents today via EMS. She denies any fevers, chills, cough, congestion, GI or symptoms. In particular she denies any loss of bowel control or urinary retention. On arrival the patient is no acute distress, afebrile stable vital signs. She has mild tenderness to palpation of the right anterior hip. She will not allow range of motion even passively 2/2 pain. Distal PMS is intact. CT of the L-spine and right hip were performed and per preliminary stat read report negative for acute abnormalities. Severe arthritis is noted. Upon reevaluation following treatment with IM Decadron and Toradol ambulatory trial was attempted by RN however the patient continued to refuse to get up due to her reported severe right hip pain. Thus, we will proceed with admission for pain control, PT OT evaluation and likely placement. Basic blood work and Covid-19 screen ordered at this time. Case was discussed with Dr. Fletcher, [facility] hospitalist, who will evaluate the patient for admission. WBC, H/H and platelets within normal limits. Chemistry without metabolic acidosis. Patient's COVID-19 RNA, JASON test was incidentally positive. The patient has no active COVID-19 symptoms at this time. Further management per admitting team. Triage Nursing notes reviewed and agree them. Prior medical records reviewed Vital Signs: reviewed Differential diagnosis: Fracture, subluxation, dislocation, contusion, ligamentous injury, neurovascular, compartment syndrome, rhabdomyolysis, as well as other pathologies. ER treatment provided: See below. Laboratory studies: See below Imaging studies: See below Consultation(s): Case was discussed with Dr. Fletcher, [facility] hospitalist, who will evaluate the patient for admission. HPI: The patient is a pleasant 66-year-old woman with a past medical history of arthritis, restless leg syndrome, history of lumbar compression fracture, and right intertrochanteric hip fracture s/p ORIF who presents to the emergency department for evaluation of worsening right hip pain which has become severe w here she is unable to ambulate even with her walker. She was seen in the emergency department approximately 2 weeks ago for similar symptoms and had unremarkable x-rays. She reports she had a scheduled appointment with her primary care doctor tomorrow however because of the pain becoming so severe and her inability to walk presents today via EMS. She denies any fevers, chills, cough, congestion, GI or symptoms. In particular she denies any loss of bowel control or urinary retention. ROS: See above HPI for pertinent positives & negatives. A total of 10 systems r eviewed and were otherwise negative. VITALS:See Below PHYSICAL EXAMINATION: GENERAL: Awake, alert, well-appearing, in no distress HENT: Normocephalic, atraumatic. Oropharynx unremarkable. EYES: Normal conjunctiva. Sclera non-icteric. NECK: Supple. No nuchal rigidity. FROM. No JVD. RESPIRATORY: Clear to auscultation. CARDIAC: Regular rate, normal rhythm. Extremities warm and well perfused. Pulses equal. ABDOMEN: Soft, non-distended. No tenderness to palpation. No rebound or guarding. No masses. RECTAL: Deferred. MUSCULOSKELETAL: Chest examination reveals no tenderness. The back is symmetrical on inspection without obvious abnormality. There is no CVA tenderness to palpation. No joint edema. Mild tenderness to palpation of the right anterior hip. She will not allow range of motion even passively 2/2 pain. Distal PMS is intact. LOWER EXTREMITIES: Calves are equal size bilaterally and non-tender. No edema. No discoloration. NEURO: Normal sensorium. No sensory or motor deficits noted. SKIN: No rash or jaundice noted. 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 Treated in [place]. Dr Cespedes. Chemo and radiation. R hip pinning " HTN (hypertension) Lumbar compression fracture RLS (restless legs syndrome) Vulvar neoplasm Surgical History History of hip surgery History of vertebroplasty Family History Other Cancer Heart disease Social History Smoking Status: Current every day smoker Preferred Language: Khmer Communication Ability: Effective Feels Safe at Home: Yes Allergies Allergies Allergy/AdvReac Type Severity Reaction Status Date / Time Benzodiazepines Allergy Mild ITCH Verified 05/10/22 00:52 chlordiazepoxide Allergy Mild ITCH Verified 05/10/22 00:52 clidinium Allergy Mild ITCH Verified 05/10/22 00:52 gabapentin Allergy Mild ITCH Verified 05/10/22 00:52 hydrocodone Allergy Mild Itch Verified 05/10/22 00:52 oxycodone Allergy Mild Itch Verified 05/10/22 00:52 belladonna alkaloids Allergy Unknown ITCHING Verified 05/10/22 00:52 yellow dye Allergy Unknown . Verified 05/10/22 00:52 Tramadol Allergy Mild Itch Uncoded 05/10/22 00:52 Methscopolamine Allergy Unknown . Uncoded 05/10/22 00:52 Home Meds Home Medications Medication Instructions Recorded Confirmed diclofenac sodium 75 mg 75 mg PO BID 05/10/22 05/10/22 tablet,delayed release dicyclomine 10 mg capsule 10 mg PO QID PRN .Abd cramping 05/10/22 05/10/22 lidocaine 4 % topical patch 1 patch topical DAILY PRN Pain 05/10/22 05/10/22 (Salonpas (lidocaine)) omeprazole 20 mg capsule,delayed 20 mg PO DAILY 05/10/22 05/10/22 release valacyclovir 500 mg tablet 500 mg PO BID 05/10/22 05/10/22 Results & Data (ED) Vital Signs Vital Signs - 24 hr 05/09/22 19:46 05/09/22 19:50 05/09/22 23:17 Pulse Rate 70 Pulse Rate [Right Finger] 73 70 Pulse Rhythm [Right Finger] Regular Pulse Strength [Right Finger] Normal Respiratory Rate 16 Respiratory Effort / Characteristics Non-Labored Respiratory Depth Normal Respiratory Pattern Regular Blood Pressure 175/69 H Blood Pressure [Right Arm] 180/91 H Blood Pressure Mean 104 Blood Pressure Mean [Right Arm] 120 Blood Pressure Position [Right Arm] Lying Pulse Oximetry 98 99 97 Oxygen Delivery Method Room Air Room Air Room Air Sepsis Recent Fever Within 48 Hours No Sepsis New/Unexplained Change in Mental Status No Sepsis Action Taken by Nursing No Action Required Laboratory Data Attestation: I reviewed the patient's lab results. Result diagrams: 05/10/22 00:00 05/10/22 02:03 Lab Results 05/10/22 05/10/22 05/10/22 Range/Units 00:00 00:00 01:10 WBC 7.31 (4.8-10.8) K/ul RBC 4.06 (3.93-5.22) M/uL Hgb 13.2 (12.0-16.0) g/dl Hct 37.5 (34.1-44.9) % MCV 92.4 (80.0-100.0) fL MCH 32.5 (25.0-34.0) pg MCHC 35.2 (32.0-36.0) g/dL RDW Std Deviation 45.3 (36.4-46.3) fL RDW Coeff of Marcelino 13.2 (11.5-14.5) % Plt Count 322 (130-400) K/uL MPV 10.8 (9.4-12.3) fL Immature Gran % (Auto) 0.4 % Neut % (Auto) 86.8 % Lymph % (Auto) 10.3 % Renville % (Auto) 1.6 % Eos % (Auto) 0.5 % Baso % (Auto) 0.4 % Neut # (Auto) 6.34 (1.4-6.5) K/uL Lymph # (Auto) 0.75 L (1.2-3.4) K/uL Renville # (Auto) 0.12 L (0.24-0.82) K/uL Eos # (Auto) 0.04 (0-0.50) K/uL Baso # (Auto) 0.03 (0-0.2) K/uL Immature Gran # (Auto) 0.03 H (0.00-0.02) K/uL Sodium 134 L (136-145) mmol/L Potassium TNP Chloride 104 (98-107) mmol/L Carbon Dioxide 21 (21-32) mmol/L Anion Gap 9 (3-11) BUN 32 H (6-23) mg/dl Creatinine 1.17 (0.6-1.2) mg/dl Est Cr Clr Drug Dosing 40.2 ml/min Est GFR ( Amer) 56.2 ml/min Est GFR (Non-Af Amer) 48.5 ml/min BUN/Creatinine Ratio 27.4 H (10-20) Glucose 110 H (70-99(Fasting)) mg/dl Calcium 8.9 (8.5-10.1) mg/dl SARS-CoV-2, RNA, NAAT POSITIVE A* (NEGATIVE) 05/10/22 Range/Units 02:03 WBC (4.8-10.8) K/ul RBC (3.93-5.22) M/uL Hgb (12.0-16.0) g/dl Hct (34.1-44.9) % MCV (80.0-100.0) fL MCH (25.0-34.0) pg MCHC (32.0-36.0) g/dL RDW Std Deviation (36.4-46.3) fL RDW Coeff of Marcelino (11.5-14.5) % Plt Count (130-400) K/uL MPV (9.4-12.3) fL Immature Gran % (Auto) % Neut % (Auto) % Lymph % (Auto) % Ren[place] % (Auto) % Eos % (Auto) % Baso % (Auto) % Neut # (Auto) (1.4-6.5) K/uL Lymph # (Auto) (1.2-3.4) K/uL Ren[place] # (Auto) (0.24-0.82) K/uL Eos # (Auto) (0-0.50) K/uL Baso # (Auto) (0-0.2) K/uL Immature Gran # (Auto) (0.00-0.02) K/uL Sodium (136-145) mmol/L Potassium 4.5 Chloride (98-107) mmol/L Carbon Dioxide (21-32) mmol/L Anion Gap (3-11) BUN (6-23) mg/dl Creatinine (0.6-1.2) mg/dl Est Cr Clr Drug Dosing ml/min Est GFR ( Amer) ml/min Est GFR (Non-Af Amer) ml/min BUN/Creatinine Ratio (10-20) Glucose (70-99(Fasting)) mg/dl Calcium (8.5-10.1) mg/dl SARS-CoV-2, RNA, NAAT (NEGATIVE) Administered Medications Discontinued Medications Dexamethasone Sodium Phosphate (DexamethasonePf 10 Mg/Ml Vial) 10 mg IM NOW ONE Stop: 05/09/22 20:43 Last Admin: 05/09/22 20:56 Dose: 10 mg Documented By: YAYA Diclofenac Sodium (Diclofenac Sod 1% Gel 100 Gm Tube) 4 gm EXT NOW STA; Protocol Stop: 05/10/22 00:11 Last Admin: 05/10/22 00:44 Dose: 4 gm Documented By: PRITESH Acetaminophen (Ofirmev) 1,000 mg in 100 mls @ 400 mls/hr IV NOW STA Stop: 05/10/22 00:24 Last Infusion: 05/10/22 01:07 Dose: 0 mls/hr Documented By: Admin: 05/10/22 00:44 Dose: 400 mls/hr Documented By: PRITESH Ketorolac Tromethamine (Ketorolac Tromethamine 60 Mg/2 Ml Vial) 60 mg IM NOW STA Stop: 05/09/22 20:43 Last Admin: 05/09/22 20:56 Dose: 60 mg Documented By: YAYA Imaging Data Radiologist's Impression: STATRAD Preliminary Findings Only See Final Report For Complete Findings CT L SPINE: Compression fractures L2-L4 with postoperative changes consistent with vertebral body augmentation. Diffuse osteopenia. No acute fractures or dislocation identified on this exam. Radiologist: Misbah Nova MD Study ready at 21:52 and initial results transmitted at 23:16 Preliminary Findings Only See Final Report For Complete Findings CT RIGHT HIP: Postoperative changes of ORIF right hip fracture. Intertrochanteric fracture lucency persists. No acute osseous pathology. Radiologist: Misbah Nova MD Study ready at 21:52 and initial results transmitted at 23:15 Discharge Plan Visit Data Chief Complaint: Leg Injury/Pain ED Provider: Polo Starks Discharge Problem: Right hip pain, Ambulatory dysfunction, COVID-19 Patient Disposition: Admitted As Inpatient Forms Stand Alone Forms: [facility] Prescriptions Prescriptions: No Action lidocaine [Salonpas (lidocaine)] 4 % Adhesive Patch,Medicated 1 patch TOPICAL DAILY PRN (Reason: Pain) valacyclovir 500 mg tablet 500 mg PO BID omeprazole 20 mg capsule,delayed release(DR/EC) 20 mg PO DAILY diclofenac sodium 75 mg tablet,delayed release (DR/EC) 75 mg PO BID dicyclomine 10 mg capsule 10 mg PO QID PRN (Reason: .Abd cramping) Referrals Referrals: Ludwig Garcia DO [Primary Care Provider] -
[2022-05-10 01:13] LABS: Basophils # (auto) 0.03 K/uL (0-0.2); Basophils % (auto) 0.4 %; Eosinophils # (auto) 0.04 K/uL (0-0.50); Eosinophils % (auto) 0.5 %; Hematocrit (blood only) 37.5 % (34.1-44.9); Hemoglobin 13.2 g/dl (12.0-16.0); Immature Granulocytes # (auto) 0.03 K/uL (0.00-0.02); Immature Granulocytes % (auto) 0.4 %; Lymphocytes # (auto) 0.75 K/uL (1.2-3.4); Lymphocytes % (auto) 10.3 %; Mean Corpuscular Hemoglobin 32.5 pg (25.0-34.0); Mean Corpuscular Hgb Conc 35.2 g/dL (32.0-36.0); Mean Corpuscular Volume 92.4 fL (80.0-100.0); Mean Platelet Volume 10.8 fL (9.4-12.3); Monocytes # (auto) 0.12 K/uL (0.24-0.82); Monocytes % (auto) 1.6 %; Neutrophils # (auto) 6.34 K/uL (1.4-6.5); Neutrophils % (auto) 86.8 %; Platelet Count 322 K/uL (130-400); RDW Coefficient of Variation 13.2 % (11.5-14.5); RDW Standard Deviation 45.3 fL (36.4-46.3); Red Blood Count 4.06 M/uL (3.93-5.22); White Blood Count 7.31 K/ul (4.8-10.8)
[2022-05-10 01:43] LABS: Anion Gap 9 (3-11); BUN Creatinine Ratio 27.4 (10-20); Blood Urea Nitrogen 32 mg/dl (6-23); Calcium 8.9 mg/dl (8.5-10.1); Carbon Dioxide 21 mmol/L (21-32); Chloride 104 mmol/L (98-107); Creatinine Clr Calc Pharmacy 40.2 ml/min; Est GFR (African American) 56.2 ml/min; Est GFR (Non-African American) 48.5 ml/min; Glucose 110 mg/dl (70-99(Fasting)); Sodium 134 mmol/L (136-145)
[2022-05-10] MEDS ORDERED: POLYETHYLENE (MIRALAX) 17 GM PACK PO PRN (02:26)
[2022-05-10] MEDS ORDERED: ALUMINUM/MAGNESIUM SUSP 30 ML UDC PO PRN (02:26)
[2022-05-10] MEDS ORDERED: MAGNESIUM HYDROXIDE SUSP 30 ML UDC PO PRN (02:26)
[2022-05-10] MEDS ORDERED: ACETAMINOPHEN 325 MG TAB PO PRN (02:26)
[2022-05-10] MEDS ORDERED: ONDANSETRON INJ 2 MG/ML 2 ML VIAL IV PRN (02:26)
--- NOTE | 2022-05-10 02:39 | History & Physical Report ---
Date of Service May 10, 2022 Assessment & Plan (1) Right hip pain: Plan Right hip pain Ambulatory dysfunction Patient has a history of metastatic carcinoma to her right hip, comes in with right hip pain affecting her day-to-day activities. CT of the spine and right hip with no acute findings, severe arthritis noted, follow final read. Pain management, orthopedic consult in AM. PT/OT, CM to assist with DC planning Hypertensive urgency: Likely secondary to acute pain, amlodipine, as needed medication. Asymptomatic COVID 19 infection: Patient test positive for COVID in the ED, patient on room air, without complaints of runny nose or myalgia or cough. Continue to monitor. Other chronic medical conditions: Resume home meds as able. Heparin subcu DNR/DNI History of Present Illness Chief Complaint: Right hip pain, difficulty ambulating Primary Care Provider: Ludwig Garcia DO 66-year-old lady with PMH of cervical cancer, CRISTO/BSO, repair of right hip joint, herpes simplex virus infection, chronic right-sided low back pain without sciatica, metastatic squamous cell carcinoma to bone/right hip, senile osteoporosis, GERD, chronic constipation presented to our ED 05/10 with complaint of right hip pain affecting her ambulation and not being able to carry out her day-to-day activities. Patient received IM Decadron and Toradol in the ED, patient refused to get up due to reported severe right hip pain and hence patient is being admitted for pain control/PT and OT evaluation and likely placement. Patient denies any fever or sore throat, patient reports chronic cough with scant whitish sputum, patient denies any chest pain or palpitation or acute changes in her bowel or bladder habits. Patient also reports decreasing appetite since 1 week. Patient currently smokes 2 cigarettes a day, has been smoking since a long time, at peak she smoked around 1 packs a day, couselled on smoking cessation, offered nicotine patch -->declined nicotine patch. Patient denies use of alcohol/recreational drugs. DNR/DNI as per my discussion with the patient. 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 Medications were reviewed with the patient. Plan of care was discussed with the patient. Allergies Allergy/AdvReac Type Severity Reaction Status Date / Time Benzodiazepines Allergy Mild ITCH Verified 05/10/22 00:52 chlordiazepoxide Allergy Mild ITCH Verified 05/10/22 00:52 clidinium Allergy Mild ITCH Verified 05/10/22 00:52 gabapentin Allergy Mild ITCH Verified 05/10/22 00:52 hydrocodone Allergy Mild Itch Verified 05/10/22 00:52 oxycodone Allergy Mild Itch Verified 05/10/22 00:52 belladonna alkaloids Allergy Unknown ITCHING Verified 05/10/22 00:52 yellow dye Allergy Unknown . Verified 05/10/22 00:52 Tramadol Allergy Mild Itch Uncoded 05/10/22 00:52 Methscopolamine Allergy Unknown . Uncoded 05/10/22 00:52 Home Medications Medication Instructions Recorded Confirmed Type diclofenac sodium 75 mg 75 mg PO BID 05/10/22 05/10/22 History tablet,delayed release dicyclomine 10 mg capsule 10 mg PO QID PRN .Abd cramping 05/10/22 05/10/22 History lidocaine 4 % topical patch 1 patch topical DAILY PRN Pain 05/10/22 05/10/22 History (Salonpas (lidocaine)) omeprazole 20 mg capsule,delayed 20 mg PO DAILY 05/10/22 05/10/22 History release valacyclovir 500 mg tablet 500 mg PO BID 05/10/22 05/10/22 History Past Med/Surg History Medical History (Updated 05/10/22 @ 02:37 by Diane Fletcher MD) Bone cancer Cervical cancer "1989 - 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 Treated in [place]. Dr Cespedes. Chemo and radiation. R hip pinning " HTN (hypertension) Lumbar compression fracture RLS (restless legs syndrome) Vulvar neoplasm Surgical History (Updated 05/09/22 @ 00:06 by Samantha Hartman) History of hip surgery History of vertebroplasty Family History Other Cancer Heart disease Social History (Updated 05/03/19 @ 10:39 by Dina Arreaga) Smoking Status: Current every day smoker Preferred Language: Serbian Communication Ability: Effective Feels Safe at Home: Yes Review of Systems Review of Systems: Negative otherwise mentioned in HPI. Physical Exam Physical Exam: GENERAL: Alert and oriented x3. NAD, on RA. HEENT: No pallor, no icterus. Pupils equal, round and reactive to light. Oral mucosa moist. NECK: No JVD, no neck masses. HEART: S1 and S2 heard. Regular rate and rhythm. No murmur, no gallop. RESPIRATORY SYSTEM: Normal AP diameter. No accessory muscle use. No wheezing, no crackles. ABDOMEN: Soft, bowel sounds present, nontender, no distention. CENTRAL NERVOUS SYSTEM: No facial droop. Speech is clear. Obeys simple commands. Moves extremities. EXTREMITIES: No edema, no erythema seen. Rt hip tender, decreased/painful ROM at Rt hip. No erythema/warmth noted. Results & Data Results & Data ([facility]) Vital Signs (Past 12 Hours) Vital Signs Pulse Pulse Resp BP BP Pulse Ox O2 Del Method 05/09/22 23:17 70 16 180/91 H 97 Room Air 05/09/22 19:50 73 99 Room Air 05/09/22 19:46 70 175/69 H 98 Room Air Code Status & VTE Plan VTE Prophylaxis Plan VTE Prophylaxis will be ordered: Yes
[2022-05-10] MEDS ORDERED: hydrALAZINE HCL 25 MG TAB PO PRN (02:40)
[2022-05-10] MEDS ORDERED: amLODIPine BESYLATE 5 MG TAB PO ONE (02:40)
[2022-05-10] MEDS ORDERED: DICYCLOMINE HCL 10 MG CAP PO PRN (03:32)
[2022-05-10] MEDS ORDERED: [UNRECOGNIZED DRUG - OTHER] TOP PRN (03:32)
[2022-05-10] MEDS ORDERED: LIDOCAINE 4% TOP PRN (03:32)
[2022-05-10] MEDS: DICLOFENAC SOD 1% GEL 100 GM TUBE EXT SCH ×4 (04:07→21:59)
--- NOTE | 2022-05-10 07:37 | CT Scan Report ---
CT pelvis wo con HISTORY: 66 years-old Female right hip pain acute right hip pain status post fall COMPARISON: CT lumbar spine of same day, pelvis and right hip radiographs 04/24/2022, 02/28/2019, 12/06 TECHNIQUE: Multiple axial CT images of the pelvis was obtained without the use of IV contrast. A dose lowering technique was used consistent with the principals of ALARA. FINDINGS: Atherosclerosis of the aorta and iliac arteries. No lymphadenopathy identified. Postoperative changes of the anterior abdominal wall. Prior hysterectomy with numerous surgical clips of the pelvis. No demond wel obstruction or bowel wall thickening identified. Ossifications are noted within the proximal righ t thigh soft tissues. Chronic L3-L4 compression deformities with kyphoplasty changes. Demineralized appearance of the bones. 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 No acute sacral insufficiency fracture identified. No acute pelvic ring fracture identified. There are [address] cannulated screws traversing the right femoral neck there is an age-indeterminate subtle nondispla fanny mildly comminuted transverse fracture involving the proximal right femur at the level of the less er trochanter seen nicely on the coronal images. IMPRESSION: 1. ORIF changes of the proximal right femur have been present dating back to 2013 with intact cannula andreea screws traversing the femoral neck. 2. There is a nondisplaced transversely oriented fracture involving the proximal right femur at the l evel of the lesser trochanter, likely acute or subacute. This finding was called/faxed to the floor a t time of dictation. ACT 112: Negative or not required by law. The above report was generated using voice recognition software. It may contain grammatical, syntax o r spelling errors. Electronically signed by: Darron Driver M.D. 05/10/2022 7:35 AM
--- NOTE | 2022-05-10 07:40 | CT Scan Report ---
CT lumbar spine wo con CLINICAL HISTORY: right hip pain TECHNIQUE: Multidetector row helical CT of the lumbar spine was performed without administration of i ntravenous contrast. Coronal and sagittal reformations were obtained. Automated dose lowering techniq ues and/or adjustment according to patient size were utilized for this exam. Comparison: Comparison is made to lumbar spinal radiograph 06/25/[address] lumbar spine 05/02/2017 FINDINGS: For counting purposes, the last complete intervertebral disc space is considered L5-S1. No acute fractures are seen. Chronic compression fractures are seen spanning L2-L4 with postoperative changes compatible with kyphoplasty. Multilevel degenerative changes are seen. Vertebral body alignm ent is within normal limits. Atherosclerosis is seen with a tiny infrarenal aortic aneurysm. IMPRESSION: No acute fractures. Old fractures with postkyphoplasty change. ACT 112: Negative or not required by law. Electronically signed by: Avery Hearn M.D. 05/10/2022 7:38 AM
[2022-05-10 07:43] LABS: BUN Creatinine Ratio 32.1 (10-20); Calcium 8.8 mg/dl (8.5-10.1); Creatinine Clr Calc Pharmacy 42.7 ml/min; Est GFR (African American) 61.3 ml/min; Est GFR (Non-African American) 52.9 ml/min; Potassium 4.2 mmol/L (3.5-5.1)
[2022-05-10] MEDS: amLODIPine BESYLATE 5 MG TAB PO SCH (08:45)
[2022-05-10] MEDS: valACYclovir HCL 500 MG TABLET PO SCH ×2 (08:45→19:50)
[2022-05-10] MEDS: DICLOFENAC SODIUM 75 MG TABCR PO SCH ×2 (08:46→19:49)
[2022-05-10] MEDS: PANTOprazole 40 MG TAB PO SCH (08:46)
[2022-05-10] MEDS: HEPARIN SOD 5,000 UNIT/0.5 ML VIAL SQ SCH ×2 (08:46→19:50)
--- NOTE | 2022-05-10 12:47 | Hospitalist Progress Note ---
Date of Service May 10, 2022 Assessment & Plan (1) Right hip pain: Plan Right hip pain- Femoral Fracture, Nondisplaced, Lesser Trochanter Ambulatory dysfunction Patient has a history of metastatic carcinoma to her right hip, comes in with right hip pain affecting her day-to-day activities. CT pelvis: 1. ORIF changes of the proximal right femur have been present dating back to 2013 with intact cannulated screws traversing the femoral neck. 2. There is a nondisplaced transversely oriented fracture involving the proximal right femur at the level of the lesser trochanter, likely acute or subacute. CT lumbar spine: No acute fractures are seen. Chronic compression fractures are seen spanning L2- L4 with postoperative changes compatible with kyphoplasty. Multilevel degenerative changes are seen. Vertebral body alignment is within normal limits. Atherosclerosis is seen with a tiny infrarenal aortic aneurysm. Pain management, orthopedic consult PT/OT, CM to assist with DC planning Hypertensive urgency: Likely secondary to acute pain, amlodipine, as needed medication. - asymptomatic BP improving Asymptomatic COVID 19 infection: Patient test positive for COVID in the ED, patient on room air, without complaints of runny nose or myalgia or cough. - monitor closely Other chronic medical conditions: Resume home meds as able. Heparin subcu DNR/DNI Disposition PT/OT pending patient prefers to go home upon discharge plan of care discussed with patient in detail and at length all questions answered she is understanding, agreeable, comfortable with the plan of care Admission and Anticipated Discharge Date Admission Date: May 10, 2022 Subjective ff up for Right hip fracture, incidental finding of COVID 19 infection, etc seen resting in bed, comfortable on room air in good spirits states she feels improved compared to yesterday R hip pain seems to have improved still has difficulty with ambulation denies respiratory symptoms- no cough, sputum production, chills, chest pain no leg pain (+) urinary retention- new as per patient, Foster cath placed no other symptoms Review of Systems Review of Systems: all noted and negative except for above Physical Exam Physical Exam: General- oriented x 3, not in distress, speaks in sentences with no effort or accessory muscle use Eyes- anicteric Neck- no JVD Lungs- clear breath sounds bilaterally, no rales/wheezes Heart- normal rate, regular rhythm; no murmurs Abdomen- normal bowel sounds, nondistended, soft, nontender Extremities- no pretibial edema, no calf tenderness Neuro- alert, oriented x 3; no gross focal neurologic deficits Skin- warm & dry Results & Data Results & Data ([facility]) Vital Signs (Past 12 Hours) Vital Signs Temp Pulse Resp BP Pulse Ox Pulse Ox O2 Del Method 05/10/22 10:17 Room Air 05/10/22 07:14 36.5 C 73 18 172/98 H 97 Room Air 05/10/22 03:30 Room Air 05/10/22 03:30 Room Air 05/10/22 03:30 98 05/10/22 03:30 36.6 C 74 16 173/80 H 98 Room Air 05/10/22 03:09 65 17 171/82 H 95 Room Air 05/10/22 01:30 67 16 168/89 H 98 Room Air O2 Del Method 05/10/22 10:17 05/10/22 07:14 05/10/22 03:30 05/10/22 03:30 05/10/22 03:30 Room Air 05/10/22 03:30 05/10/22 03:09 05/10/22 01:30 all noted and reviewed including below
--- NOTE | 2022-05-10 14:00 | Orthopedic Consultation ---
Date of Consultation May 10, 2022 Assessment & Plan (1) Closed fracture of proximal end of right femur: X-rays and CT scans reviewed. I have discussed the case with Dr. Camara. We will get a full-length femur film of the right lower extremity at this time. We will also need to try to get the operative note from her previous surgery when she had her cannulated screws placed in the right hip for prophylaxis, to see which equipment we will need to take out the screws. As noted, the screws will have to be removed and we will plan for a trochanteric femoral nail. Plan for above-noted surgery when information is obtained from [facility]. Plan to hold subcutaneous heparin once a surgical time is decided. I have discussed this with the patient in detail of which she is in agreement. All questions answered to the best my ability. Supervising Physician Co-Signing Physician Notes Patient seen and examined. Agree with JUDITH Bella's note as above. Patient is an extremely poor historian, and can give very little details as to what is going on with her right hip, both acutely and chronically. Patient states that she has a history of metastatic disease to her right hip and spine, but I do not see any obvious evidence of metastatic lesions in her right hip, entire right femur, or pelvis. Lumbar spine x-rays show evidence of a previous kyphoplasty. Some old notes from show that she had lumbar compression fractures from a mechanical fall, but no evidence of metastatic disease. She does not think that she had a fall or broken hip to warrant the screw fixation of her femoral neck, but she is unclear as to why the hip surgery was done. She does not recall if she was having pain in her hip consistent with an impending pathologic fracture that would have warranted the surgery or whether an osteolytic lesion was actually seen there at the time. She reports that her hysterectomy was done in 1986, but cannot recall at all when her hip surgery was done. Interestingly, she can remember all of her doctors names. She is oriented to person, place, and time, but clearly has a poor memory. She cannot recall how long her current right hip pain is going on, only that it is worse in the past few weeks. She repeatedly states that she has cancer in her right hip, but I do not see obvious evidence at this. I think we really need to clarify this before going any further. Whether she actually has metastatic cancer will make a big difference as to what surgery is performed on her right hip (long versus short nail). At the very least, she will require removal of her previous screws and fixation of this periprosthetic fracture with a cephalomedullary device. Again, I think it is critical to know whether the previous hip surgery was done for some sort of metastatic disease or whether it was a mechanical fracture. We need to obtain previous records for this hip surgery. She says it was done in [place] by Dr. Cespedes, but does not know when it was done. We need an operative report to know what hardware is currently in place so we have the right equipment to remove it. We can make further plans once this information is obtained. 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 Patient states she uses a walk er for ambulation and began noticing increasing right hip pain. She denies any mechanical fall. Over the last several days she noticed that the pain continued to worsen to the point where she was unable to bear weight on the right lower extremity. Patient also denotes that she was feeling somewhat ill at home but with no major symptoms. She came into the emergency room and was seen by the staff. X-rays were taken and was found on CT scan that she had a transverse fracture of the proximal femur just below some cannulated screws that she had placed in her right femoral head many years ago at [facility]. She states that she had the bony metastasis from her cervical carcinoma into her right hip as well as her lumbar spine. She had the screws placed by Dr. Cespedes who she states is no longer there. She also states that she had kyphoplasty done last year in December done at [place] for 3 of her lumbar vertebrae. She was admitted by the [facility] service and we have been asked to take care of her right femur fracture. Allergies Allergy/AdvReac Type Severity Reaction Status Date / Time Benzodiazepines Allergy Mild ITCH Verified 05/10/22 00:52 chlordiazepoxide Allergy Mild ITCH Verified 05/10/22 00:52 clidinium Allergy Mild ITCH Verified 05/10/22 00:52 gabapentin Allergy Mild ITCH Verified 05/10/22 00:52 hydrocodone Allergy Mild Itch Verified 05/10/22 00:52 oxycodone Allergy Mild Itch Verified 05/10/22 00:52 belladonna alkaloids Allergy Unknown ITCHING Verified 05/10/22 00:52 yellow dye Allergy Unknown . Verified 05/10/22 00:52 Tramadol Allergy Mild Itch Uncoded 05/10/22 00:52 Methscopolamine Allergy Unknown . Uncoded 05/10/22 00:52 Home Medications Medication Instructions Recorded Confirmed Type diclofenac sodium 75 mg 75 mg PO BID 05/10/22 05/10/22 History tablet,delayed release dicyclomine 10 mg capsule 10 mg PO QID PRN .Abd cramping 05/10/22 05/10/22 History lidocaine 4 % topical patch 1 patch topical DAILY PRN Pain 05/10/22 05/10/22 History (Salonpas (lidocaine)) omeprazole 20 mg capsule,delayed 20 mg PO DAILY 05/10/22 05/10/22 History release valacyclovir 500 mg tablet 500 mg PO BID 05/10/22 05/10/22 History Patient History Medical History Bone cancer Cervical cancer "1989 - 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 Treated in [place]. Dr Cespedes. Chemo and radiation. R hip pinning " HTN (hypertension) Lumbar compression fracture RLS (restless legs syndrome) Vulvar neoplasm Surgical History History of hip surgery History of vertebroplasty Family History Other Cancer Heart disease Social History Smoking Status: Current every day smoker Cigarettes Per Day: 2; Second Hand Exposure: No; Do You Dip or Chew Tobacco: No; Tobacco Cessation Education Requested by Patient: No Hx Alcohol Use: No Hx Substance Use: No Preferred Language: Andorran Communication Ability: Effective Senior Database Programmer Required: No Beliefs That Will Affect Care: None Current Living Situation: Alone Other Information That Helps Us Care for You: No Feels Safe at Home: Yes Safety Concerns: Feels Safe At This Time Assistive Devices: Denture - Upper, Denture - Lower, Glasses and Walker Physical Exam Physical Exam: Patient is a 66-year-old white female who appears her stated age. She is in no acute distress. Pleasant cooperative. Oriented x3. She is currently sitting up in bed awake and alert. She appears comfortable. On examination of her right lower extremity, it appears fairly equal in length with her left lower extremity. Internal and external rotation does not cause any discomfort in her right proximal femur or hip. Passive abduction and adduction does cause her discomfort. Forward flexion of the hip does cause her discomfort. She is currently flexed at the hip approximately 60 degrees while sitting up in bed and I can get her to approximately 90 degrees of flexion before she has the increased pain. She denies any pain in the left lower extremity and range of motion is within normal limits. Upper extremities are unaffected and she is nontender at the shoulders, elbows, and wrists. Range of motion is within normal limits. She denies any new cervical, thoracic, low back pain at this time. She denies radiculopathy. Distal pulses are equal bilaterally of the upper lower extremities. There is no gross motor or sensory loss at this time. Results & Data ([facility]) Vital Signs (Past 12 Hours) Vital Signs Temp Pulse Resp BP Pulse Ox Pulse Ox O2 Del Method 05/10/22 10:17 Room Air 05/10/22 07:14 36.5 C 73 18 172/98 H 97 Room Air 05/10/22 03:30 Room Air 05/10/22 03:30 Room Air 05/10/22 03:30 98 05/10/22 03:30 36.6 C 74 16 173/80 H 98 Room Air 05/10/22 03:09 65 17 171/82 H 95 Room Air O2 Del Method 05/10/22 10:17 05/10/22 07:14 05/10/22 03:30 05/10/22 03:30 05/10/22 03:30 Room Air 05/10/22 03:30 05/10/22 03:09 Laboratory Results Laboratory Results WBC 7.31 K/ul (4.8-10.8) 05/10/22 00:00 RBC 4.06 M/uL (3.93-5.22) 05/10/22 00:00 Hgb 13.2 g/dl (12.0-16.0) 05/10/22 00:00 Hct 37.5 % (34.1-44.9) 05/10/22 00:00 MCV 92.4 fL (80.0-100.0) 05/10/22 00:00 MCH 32.5 pg (25.0-34.0) 05/10/22 00:00 MCHC 35.2 g/dL (32.0-36.0) 05/10/22 00:00 RDW Std Deviation 45.3 fL (36.4-46.3) 05/10/22 00:00 RDW Coeff of Marcelino 13.2 % (11.5-14.5) 05/10/22 00:00 Plt Count 322 K/uL (130-400) 05/10/22 00:00 MPV 10.8 fL (9.4-12.3) 05/10/22 00:00 Immature Gran % (Auto) 0.4 % 05/10/22 00:00 Neut % (Auto) 86.8 % 05/10/22 00:00 Lymph % (Auto) 10.3 % 05/10/22 00:00 [place] % (Auto) 1.6 % 05/10/22 00:00 Eos % (Auto) 0.5 % 05/10/22 00:00 Baso % (Auto) 0.4 % 05/10/22 00:00 Neut # (Auto) 6.34 K/uL (1.4-6.5) 05/10/22 00:00 Lymph # (Auto) 0.75 K/uL (1.2-3.4) L 05/10/22 00:00 [place] # (Auto) 0.12 K/uL (0.24-0.82) L 05/10/22 00:00 Eos # (Auto) 0.04 K/uL (0-0.50) 05/10/22 00:00 Baso # (Auto) 0.03 K/uL (0-0.2) 05/10/22 00:00 Immature Gran # (Auto) 0.03 K/uL (0.00-0.02) H 05/10/22 00:00 Sodium 135 mmol/L (136-145) L 05/10/22 07:04 Potassium 4.2 mmol/L (3.5-5.1) 05/10/22 07:04 Chloride 105 mmol/L (98-107) 05/10/22 07:04 Carbon Dioxide 21 mmol/L (21-32) 05/10/22 07:04 Anion Gap 9 (3-11) 05/10/22 07:04 BUN 35 mg/dl (6-23) H 05/10/22 07:04 Creatinine 1.09 mg/dl (0.6-1.2) 05/10/22 07:04 Est Cr Clr Drug Dosing 42.7 ml/min 05/10/22 07:04 Est GFR ( Amer) 61.3 ml/min 05/10/22 07:04 Est GFR (Non-Af Amer) 52.9 ml/min 05/10/22 07:04 BUN/Creatinine Ratio 32.1 (10-20) H 05/10/22 07:04 Glucose 141 mg/dl (70-99(Fasting)) H 05/10/22 07:04 Calcium 8.8 mg/dl (8.5-10.1) 05/10/22 07:04 SARS-CoV-2, RNA, NAAT POSITIVE (NEGATIVE) A* 05/10/22 01:[address] 05/09/22 20:37 CT lumbar spine wo con CLINICAL HISTORY: right hip pain TECHNIQUE: Multidetector row helical CT of the lumbar spine was performed without administration of intravenous contrast. Coronal and sagittal reformations were obtained. Automated dose lowering techniques and/or adjustment according to patient size were utilized for this exam. Comparison: Comparison is made to lumbar spinal radiograph 06/25/[address] lumbar spine 05/02/2017 FINDINGS: For counting purposes, the last complete intervertebral disc space is considered L5-S1. No acute fractures are seen. Chronic compression fractures are seen spanning L2- L4 with postoperative changes compatible with kyphoplasty. Multilevel degenerative changes are seen. Vertebral body alignment is within normal limits. Atherosclerosis is seen with a tiny infrarenal aortic aneurysm. IMPRESSION: No acute fractures. Old fractures with postkyphoplasty change. ACT 112: Negative or not required by law. Electronically signed by: Avery Hearn M.D. 05/10/2022 7:[address] 05/09/22 20:41 CT pelvis wo con HISTORY: 66 years-old Female right hip pain acute right hip pain status post fall COMPARISON: CT lumbar spine of same day, pelvis and right hip radiographs 04/24/2022, 02/28/2019, 12/23/2013 TECHNIQUE: Multiple axial CT images of the pelvis was obtained without the use of IV contrast. A dose lowering technique was used consistent with the principals of ALARA. FINDINGS: Atherosclerosis of the aorta and iliac arteries. No lymphadenopathy identified. Postoperative changes of the anterior abdominal wall. Prior hysterectomy with numerous surgical clips of the pelvis. No bowel obstruction or bowel wall thickening identified. Ossifications are noted within the proximal right thigh soft tissues. Chronic L3-L4 compression deformities with kyphoplasty changes. Demineralized appearance of the bones. 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 No acute sacral insufficiency fracture identified. No acute pelvic ring fracture identified. There are 4 intact cannulated screws traversing the right femoral neck there is an age-indeterminate subtle nondisplaced mildly comminuted transverse fracture involving the proximal right femur at the level of the lesser trochanter seen nicely on the coronal images. IMPRESSION: 1. ORIF changes of the proximal right femur have been present dating back to 2013 with intact cannulated screws traversing the femoral neck. 2. There is a nondisplaced transversely oriented fracture involving the proximal right femur at the level of the lesser trochanter, likely acute or subacute. This finding was called/faxed to the floor at time of dictation. ACT 112: Negative or not required by law. The above report was generated using voice recognition software. It may contain grammatical, syntax or spelling errors. Electronically signed by: Darron Driver M.D. 05/10/2022 7:35 AM
--- NOTE | 2022-05-10 15:20 | XRay Report ---
XR femur RT 2V routine CLINICAL HISTORY: h/o proximal fx COMPARISON: Pelvis and right hip radiographs April 24, 2022. CT of the pelvis May 09, 2022. FINDINGS: 3 cannulated screws fixate the right femoral neck. The hardware is intact. Note is made of an acute appearing nondisplaced comminuted transverse fracture of the proximal right femur at the le edel of the lesser trochanter that extends to the inferior most screw. No distal right femoral fractur e is noted. Alignment of the right knee is anatomic. There is no right knee joint effusion. IMPRESSION: Acute appearing comminuted nondisplaced transverse fracture of the proximal right femur a t the level of the lesser trochanter that extends to the base of the inferior most femoral neck screw . ACT 112: Negative or not required by law. Electronically signed by: Geovany Wiley M.D. 05/10/2022 3:18 PM
[2022-05-10] MEDS: KETOROLAC TROMETHAMINE 15 MG/ML VIAL IV PRN (17:05)
[2022-05-11] MEDS: DICLOFENAC SOD 1% GEL 100 GM TUBE EXT SCH ×4 (04:42→21:49)
[2022-05-11 08:20] LABS: Magnesium 2.1 mg/dl (1.7-2.4); Phosphorus 2.9 mg/dl (2.5-4.9)
[2022-05-11] MEDS: PANTOprazole 40 MG TAB PO SCH (09:03)
[2022-05-11] MEDS: amLODIPine BESYLATE 5 MG TAB PO SCH (09:03)
[2022-05-11] MEDS: HEPARIN SOD 5,000 UNIT/0.5 ML VIAL SQ SCH (09:04)
[2022-05-11] MEDS: DICLOFENAC SODIUM 75 MG TABCR PO SCH ×2 (09:04→19:49)
[2022-05-11] MEDS: valACYclovir HCL 500 MG TABLET PO SCH ×2 (09:04→19:48)
[2022-05-11 09:27] LABS: Hematocrit (blood only) 35.4 % (34.1-44.9); Hemoglobin 12.3 g/dl (12.0-16.0); Mean Corpuscular Hemoglobin 32.2 pg (25.0-34.0); Mean Corpuscular Hgb Conc 34.7 g/dL (32.0-36.0); Mean Corpuscular Volume 92.7 fL (80.0-100.0); Mean Platelet Volume 10.4 fL (9.4-12.3); Platelet Count 343 K/uL (130-400); RDW Coefficient of Variation 13.5 % (11.5-14.5); RDW Standard Deviation 45.8 fL (36.4-46.3); Red Blood Count 3.82 M/uL (3.93-5.22); White Blood Count 12.02 K/ul (4.8-10.8)
--- NOTE | 2022-05-11 16:18 | Hospitalist Progress Note ---
Date of Service May 11, 2022 Assessment & Plan (1) Right hip pain: Plan Right hip pain- Femoral Fracture, Nondisplaced, Lesser Trochanter Ambulatory dysfunction -Patient reports history of "cervical and bone cancer cancer affecting her hip", Cervical cancer in 1980s. Bone cancer shortly after. History of right hip surgery at [facility] (she thinks it was in the ) but she can not recall why she had hip surgery, attempting to get Op report currently -Appreciate Ortho input. Femur X ray film report noted. No metastatic lesion noted. Uncertain if we can characterize her current fracture as pathologic, although patient denies fall or injury which would explain her current fracture otherwise. Defer surgical management to orthopedic surgery. Tentatively plan for OR tomorrow. -Preop Eval: CXR (due to +covid status) and EKG. Final risk stratification pending these two studies Hypertensive urgency: Likely secondary to acute pain, amlodipine, as needed medication. - BP normotensive currently Asymptomatic COVID 19 infection: Patient test positive for COVID in the ED, patient on room air, without complaints of runny nose or myalgia or cough. - Will check CXR to further evaluate DVT ppx -switch to lovenox Disposition -Will need PT/OT evaluation post op Admission and Anticipated Discharge Date Admission Date: May 10, 2022 Subjective Right hip pain is controlled currently. Her baseline functional status is limited due to chronic hip pain Denies chest pain, shortness of breath or other complaint currently Physical Exam Physical Exam: Poor historian, appears older than stated age, no acute distress Respiratory: Breathing comfortably on room air, no wheezing/rhonchi/rales Cardiovascular: regular rate and rhythm, no murmurs/rubs/gallops Gastrointestinal (Abdomen): soft, non tender Musculoskeletal: No edema Neurologic: awake, alert, poor historian Results & Data Results & Data ([facility]) Vital Signs (Past 12 Hours) Vital Signs Temp Pulse Resp BP Pulse Ox O2 Del Method 05/11/22 14:01 36.5 C 67 18 102/64 97 Room Air 05/11/22 09:18 Room Air 05/11/22 08:13 36.6 C 64 18 120/60 97 Room Air
--- NOTE | 2022-05-11 17:24 | XRay Report ---
SINGLE VIEW CHEST CLINICAL HISTORY: Preoperative examination. Positive Covid test. FINDINGS: An AP, portable, upright chest radiograph is compared to study dated 05/02/2017. The cardio mediastinal silhouette is unremarkable noting atherosclerotic calcification of the thoracic aorta. Ch ronic interstitial thickening is similar to previous. The lungs and pleural spaces are clear. No pneu mothorax is seen. The skeletal structures are osteopenic. There is evidence of previous vertebroplast y in the upper lumbar spine. IMPRESSION: No active disease in the chest. ACT 112: Negative or not required by law. Electronically signed by: Tee Pimentel M.D. 05/11/2022 5:23 PM
[2022-05-11] MEDS ORDERED: ENOXAPARIN INJ 40 MG/0.4 ML SYR SQ SCH (21:00)
[2022-05-11] MEDS: ACETAMINOPHEN 325 MG TAB PO SCH (21:48)
[2022-05-12] MEDS: DICLOFENAC SOD 1% GEL 100 GM TUBE EXT SCH ×4 (04:55→20:59)
[2022-05-12] MEDS: ACETAMINOPHEN 325 MG TAB PO SCH ×3 (05:50→21:01)
[2022-05-12] MEDS: PANTOprazole 40 MG TAB PO SCH (08:47)
[2022-05-12] MEDS: DICLOFENAC SODIUM 75 MG TABCR PO SCH ×2 (08:47→20:56)
[2022-05-12] MEDS: valACYclovir HCL 500 MG TABLET PO SCH ×2 (08:47→20:57)
[2022-05-12] MEDS: amLODIPine BESYLATE 5 MG TAB PO SCH (08:50)
[2022-05-12 09:37] LABS: Basophils # (auto) 0.05 K/uL (0-0.2); Basophils % (auto) 0.4 %; Eosinophils # (auto) 0.13 K/uL (0-0.50); Eosinophils % (auto) 1.1 %; Hematocrit (blood only) 33.8 % (34.1-44.9); Hemoglobin 11.7 g/dl (12.0-16.0); Immature Granulocytes # (auto) 0.07 K/uL (0.00-0.02); Immature Granulocytes % (auto) 0.6 %; Lymphocytes # (auto) 2.38 K/uL (1.2-3.4); Lymphocytes % (auto) 20.6 %; Mean Corpuscular Hemoglobin 31.8 pg (25.0-34.0); Mean Corpuscular Hgb Conc 34.6 g/dL (32.0-36.0); Mean Corpuscular Volume 91.8 fL (80.0-100.0); Mean Platelet Volume 10.8 fL (9.4-12.3); Monocytes # (auto) 0.71 K/uL (0.24-0.82); Monocytes % (auto) 6.1 %; Neutrophils # (auto) 8.22 K/uL (1.4-6.5); Neutrophils % (auto) 71.2 %; Platelet Count 326 K/uL (130-400); RDW Coefficient of Variation 13.6 % (11.5-14.5); RDW Standard Deviation 46.5 fL (36.4-46.3); Red Blood Count 3.68 M/uL (3.93-5.22); White Blood Count 11.56 K/ul (4.8-10.8)
[2022-05-12 09:50] LABS: Prothrombin Time 10.2 Seconds (9.0-12.0)
[2022-05-12 10:02] LABS: Calcium 8.4 mg/dl (8.5-10.1); Est GFR (African American) 46.5 ml/min; Est GFR (Non-African American) 40.1 ml/min; Potassium 3.9 mmol/L (3.5-5.1)
[2022-05-12] MEDS: LACTATED RINGER'S 1,000 ML IV SCH ×2 (11:00→20:50)
[2022-05-12 11:34] LABS: Appearance Urine Turbid (Clear); Bacteria Urine Automated 4+ (Negative); Bilirubin Urine Negative (Negative); Blood Urine 2+ (Negative); Color Urine Yellow; Epithelial Cell Urine Auto >30 /lpf (0-5); Glucose Urine UA Negative (Negative); Ketones Urine Negative (Negative); Leukocyte Esterase Urine 3+ (Negative); Nitrite Urine Positive (Negative); Protein Urine 1+ (Negative); Specific Gravity Urine 1.019 (1.000-1.030); Urobilinogen Urine Negative (Negative); WBC Urine Automated >30 /hpf (0-5)
--- NOTE | 2022-05-12 14:34 | Hospitalist Progress Note ---
Date of Service May 12, 2022 Assessment & Plan (1) Right hip pain: Plan Right hip pain- Femoral Fracture, Nondisplaced, Lesser Trochanter Ambulatory dysfunction -Patient reports history of "cervical and bone cancer cancer affecting her hip", Cervical cancer in 1980s. Bone cancer shortly after. History of right hip surgery at [facility] (she thinks it was in the ) but she can not recall why she had hip surgery, attempting to get Op report currently -Appreciate Ortho input. Femur X ray film report noted. No metastatic lesion noted. Uncertain if we can characterize her current fracture as pathologic, although patient denies fall or injury which would explain her current fracture otherwise. Defer surgical management to orthopedic surgery. Tentatively planned for OR -Preop Eval: CXR without active disease, ECG NSR. Low surgical risk Hypertensive urgency: Likely secondary to acute pain, amlodipine, as needed medication. - BP normotensive currently Asymptomatic COVID 19 infection: Patient test positive for COVID in the ED, patient on room air, without complaints of runny nose or myalgia or cough. - Will check CXR to further evaluate DVT ppx -switch to lovenox Disposition -Will need PT/OT evaluation post op Admission and Anticipated Discharge Date Admission Date: May 10, 2022 Supervising Physician Co-Signing Physician Notes Patient is seen and examined. Chart reviewed. Case discussed with NADEEM. Agree with assessment and plan as above. Subjective Seen and evaluated 300-1. Ambulation limited due to chronic hip pain and ambulatory dysfunction. No fever, chills, lightheadedness, CP, SOB, N/V, abdominal pain, dysuria. No bowel movement since Monday. Review of Systems Review of Systems: At least ten systems reviewed and negative except as noted in the HPI. Physical Exam Physical Exam: Gen: WD/WN, NAD, sitting in bed, A&Ox3 HEENT: Normocephalic, atraumatic, conjunctivae moist, sclerae anicteric, mucous membranes moist Lung: Coarse breath sounds with rhonchi, L>R, no wheezing Heart: Regular rate, regular rhythm, no murmurs, rubs, or gallops Abdomen: Soft, NT, ND +BS x 4 Extremities: no edema Skin: Warm, no rash Results & Data Results & Data ([facility]) Vital Signs (Past 12 Hours) Vital Signs Temp Pulse Resp BP Pulse Ox O2 Del Method 05/12/22 07:37 36.7 C 67 18 100/62 96 Room Air Laboratory Results Short CBC 05/12/22 Range/Units 08:34 WBC 11.56 H (4.8-10.8) K/ul Hgb 11.7 L (12.0-16.0) g/dl Hct 33.8 L (34.1-44.9) % Plt Count 326 (130-400) K/uL BMP 05/12/22 08:34 Sodium 135 L Potassium 3.9 Chloride 105 Carbon Dioxide 23 BUN 52 H Creatinine 1.37 H Glucose 92 Calcium 8.4 L Urine 05/12/22 Range/Units 11:10 Urine Color Yellow Urine Appearance Turbid A (Clear) Urine pH 5.0 (4.5-7.5) Ur Specific [place] 1.019 (1.000-1.030) Urine Protein 1+ H (Negative) Urine Glucose (UA) Negative (Negative) Diagnostic Findings Lumbar Spine CT 05/09/22 20:37 CT lumbar spine wo con CLINICAL HISTORY: right hip pain TECHNIQUE: Multidetector row helical CT of the lumbar spine was performed without administration of intravenous contrast. Coronal and sagittal reformation s were obtained. Automated dose lowering techniques and/or adjustment according to patient size were utilized for this exam. Comparison: Comparison is made to lumbar spinal radiograph 06/25/[address] lumbar spine 05/02/2017 FINDINGS: For counting purposes, the last complete intervertebral disc space is considered L5-S1. No acute fractures are seen. Chronic compression fractures are seen spanning L2- L4 with postoperative changes compatible with kyphoplasty. Multilevel degenerative changes are seen. Vertebral body alignment is within normal limits. Atherosclerosis is seen with a tiny infrarenal aortic aneurysm. IMPRESSION: No acute fractures. Old fractures with postkyphoplasty change. ACT 112: Negative or not required by law. Electronically signed by: Avery Hearn M.D. 05/10/2022 7:[address] 05/09/22 20:41 CT pelvis wo con HISTORY: 66 years-old Female right hip pain acute right hip pain status post fall COMPARISON: CT lumbar spine of same day, pelvis and right hip radiographs 04/24/2022, 02/28/2019, 12/23/2013 TECHNIQUE: Multiple axial CT images of the pelvis was obtained without the use of IV contrast. A dose lowering technique was used consistent with the principals of ALARA. FINDINGS: Atherosclerosis of the aorta and iliac arteries. No lymphadenopathy identified. Postoperative changes of the anterior abdominal wall. Prior hysterectomy with numerous surgical clips of the pelvis. No bowel obstruction or bowel wall thickening identified. Ossifications are noted within the proximal right thigh soft tissues. Chronic L3-L4 compression deformities with kyphoplasty changes. Demineralized appearance of the bones. 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 No acute sacral insufficiency fracture identified. No acute pelvic ring fracture identified. There are 4 intact cannulated screws traversing the right femoral neck there is an age-indeterminate subtle nondisplaced mildly comminuted transverse fracture involving the proximal right femur at the level of the lesser trochanter seen nicely on the coronal images. IMPRESSION: 1. ORIF changes of the proximal right femur have been present dating back to 2013 with intact cannulated screws traversing the femoral neck. 2. There is a nondisplaced transversely oriented fracture involving the proximal right femur at the level of the lesser trochanter, likely acute or subacute. This finding was called/faxed to the floor at time of dictation. ACT 112: Negative or not required by law. The above report was generated using voice recognition software. It may contain grammatical, syntax or spelling errors. Electronically signed by: Darron Driver M.D. 05/10/2022 7:35 AM Femur X-Ray 05/10/22 13:24 XR femur RT 2V routine CLINICAL HISTORY: h/o proximal fx COMPARISON: Pelvis and right hip radiographs April 24, 2022. CT of the pelvis May 09, 2022. FINDINGS: 3 cannulated screws fixate the right femoral neck. The hardware is intact. Note is made of an acute appearing nondisplaced comminuted transverse fracture of the proximal right femur at the level of the lesser trochanter that extends to the inferior most screw. No distal right femoral fracture is noted. Alignment of the right knee is anatomic. There is no right knee joint effusion. IMPRESSION: Acute appearing comminuted nondisplaced transverse fracture of the proximal right femur at the level of the lesser trochanter that extends to the base of the inferior most femoral neck screw. ACT 112: Negative or not required by law. Electronically signed by: Geovany Wiley M.D. 05/10/2022 3:18 PM Chest X-Ray 05/11/22 16:01 SINGLE VIEW CHEST CLINICAL HISTORY: Preoperative examination. Positive Covid test. FINDINGS: An AP, portable, upright chest radiograph is compared to study dated 05/02/2017. The cardiomediastinal silhouette is unremarkable noting atherosclerotic calcification of the thoracic aorta. Chronic interstitial thickening is similar to previous. The lungs and pleural spaces are clear. No pneumothorax is seen. The skeletal structures are osteopenic. There is evidence of previous vertebroplasty in the upper lumbar spine. IMPRESSION: No active disease in the chest. ACT 112: Negative or not required by law. Electronically signed by: Tee Pimentel M.D. 05/11/2022 5:23 PM
--- NOTE | 2022-05-12 14:44 | Anesthesiology Consultation ---
Date of Service May 12, 2022 Assessment & Plan Chart Review Chart Review: Acceptable Risk for Surgery and Patient NOT seen in Pre Admission Testing Consults Requested none ASA ASA3 Proposed Anesthesia Anesthesia Type: General History Surgery Operation Date: 05/12/22 08:20 Proposed Procedures p Right Troch Nail, Removal 7.0/7.3 Cannulated Screws - Da Camara M.D. Height/Weight Height: 5 ft 5 in Weight: 53.3 kg Allergies Allergy/AdvReac Type Severity Reaction Status Date / Time Benzodiazepines Allergy Mild ITCH Verified 05/10/22 00:52 chlordiazepoxide Allergy Mild ITCH Verified 05/10/22 00:52 clidinium Allergy Mild ITCH Verified 05/10/22 00:52 gabapentin Allergy Mild ITCH Verified 05/10/22 00:52 hydrocodone Allergy Mild Itch Verified 05/10/22 00:52 oxycodone Allergy Mild Itch Verified 05/10/22 00:52 belladonna alkaloids Allergy Unknown ITCHING Verified 05/10/22 00:52 yellow dye Allergy Unknown . Verified 05/10/22 00:52 Tramadol Allergy Mild Itch Uncoded 05/10/22 00:52 Methscopolamine Allergy Unknown . Uncoded 05/10/22 00:52 Medications Home Medications Medication Instructions Recorded Confirmed Last Taken diclofenac sodium 75 mg 75 mg PO BID 05/10/22 05/10/22 Unknown tablet,delayed release dicyclomine 10 mg capsule 10 mg PO QID PRN .Abd cramping 05/10/22 05/10/22 Unknown lidocaine 4 % topical patch 1 patch topical DAILY PRN Pain 05/10/22 05/10/22 Unknown (Salonpas (lidocaine)) omeprazole 20 mg capsule,delayed 20 mg PO DAILY 05/10/22 05/10/22 Unknown release valacyclovir 500 mg tablet 500 mg PO BID 05/10/22 05/10/22 Unknown Active Medications Generic Name Dose Route Start Last Admin Trade Name Freq PRN Reason Stop Dose Admin Acetaminophen 650 mg 05/11/22 22:00 05/12/22 14:42 Acetaminophen 325 Mg Tab PO 06/10/22 21:59 650 mg Q8 SARA Administration Amlodipine Besylate 5 mg 05/10/22 09:00 05/12/22 08:50 Amlodipine Besylate 5 Mg Tab PO 06/09/22 08:59 Not Given QAM [facility] Diclofenac Sodium 4 gm 05/10/22 04:00 05/12/22 11:05 Diclofenac Sod 1% Gel 100 Gm Tube EXT 06/09/22 03:59 4 gm Q6H SARA Administration Protocol Diclofenac Sodium 75 mg 05/10/22 09:00 05/12/22 08:47 Diclofenac Sodium 75 Mg Tabcr PO 06/09/22 08:59 75 mg BID SARA Administration Lactated Ringer's 1,000 mls @ 100 mls/hr 05/12/22 09:30 05/12/22 11:00 Lr IV 06/11/22 09:29 100 mls/hr .Q10H SARA Administration Ketorolac Tromethamine 10 mg 05/10/22 02:38 05/10/22 17:05 Ketorolac Tromethamine 15 Mg/Ml Vial IV 05/15/22 02:37 10 mg Q6H PRN Administration Pain Pantoprazole Sodium 40 mg 05/10/22 09:00 05/12/22 08:47 Pantoprazole 40 Mg Tab PO 06/09/22 08:59 40 mg DAILY SARA Administration Valacyclovir HCl 500 mg 05/10/22 09:00 05/12/22 08:47 Valacyclovir Hcl 500 Mg Tablet PO 06/09/22 08:59 500 mg BID SARA Administration Past Medical History Medical History Bone cancer Cervical cancer "1989 - 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 Treated in [place]. Dr Cespedes. Chemo and radiation. R hip pinning " HTN (hypertension) Lumbar compression fracture RLS (restless legs syndrome) Vulvar neoplasm Exercise / Class Metabolic Activity III < 4 Walking/Shop/Light housework Past Family History Family History Other Cancer Heart disease Past Surgical History Surgical History History of hip surgery History of vertebroplasty Past Anesthesia History No Hx of Anesthesia Complications and No Family Hx of Anesthesia Complications History of PONV No Hx of PONV and No Hx of Motion Sickness Social History Smoking Status: Current every day smoker tobacco type: cigarettes Smoking cigarettes per day: 2 Do You Dip or Chew Tobacco: No Hx Alcohol Use: No Hx Substance Use: No Physical Exam Vital Signs Last Vital Signs Temp 36.7 C 05/12/22 07:37 Pulse 67 05/12/22 07:37 Resp 18 05/12/22 07:37 BP 100/62 05/12/22 07:37 Pulse Ox 96 05/12/22 07:37 O2 Del Method 05/12/22 07:37 Testing Laboratory Results 05/12/22 08:34 05/12/22 08:34 PT 10.2 Seconds (9.0-12.0) 05/12/22 08:34 INR 1.0 (0.9-1.1) 05/12/22 08:34 Urine Color Yellow 05/12/22 11:10 Urine Appearance Turbid (Clear) A 05/12/22 11:10 Urine pH 5.0 (4.5-7.5) 05/12/22 11:10 Ur Specific [place] 1.019 (1.000-1.030) 05/12/22 11:10 Urine Protein 1+ (Negative) H 05/12/22 11:10 Urine Glucose (UA) Negative (Negative) 05/12/22 11:10 Urine Ketones Negative (Negative) 05/12/22 11:10 Urine Nitrite Positive (Negative) A 05/12/22 11:10 Ur Leukocyte Esterase 3+ (Negative) H 05/12/22 11:10 Urine WBC (Auto) >30 /hpf (0-5) H 05/12/22 11:10 Urine RBC (Auto) 10-30 /hpf (0-4) H 05/12/22 11:10 U Hyaline Cast (Auto) 5-10 /lpf (0-5) H 05/12/22 11:10 U Epithel Cells (Auto) >30 /lpf (0-5) H 05/12/22 11:10 Urine Bacteria (Auto) 4+ (Negative) H 05/12/22 11:10 Blood Type A Positive 05/11/22 19:25 Antibody Screen NEGATIVE 05/11/22 19:25 Electrocardiogram Date: 05/11/22 Findings: + NSR @ (@ 70) Chest X-Ray Date: 05/11/22 Findings: + NAD
[2022-05-12] MEDS ORDERED: LIDOCAINE 2% MPF LOCAL 5 ML VIAL INFIL ONE (15:49)
[2022-05-12] MEDS ORDERED: PROPOFOL IV EMULSION 10 MG/ML 20 ML VIAL IV ONE (15:49)
[2022-05-12] MEDS ORDERED: fentaNYL citrate 100 MCG/2 ML VIAL ONE ×2 (15:50→19:18)
[2022-05-12] MEDS ORDERED: MIDAZOLAM HCL 1 MG/ML 2ML VIAL ONE (15:50)
[2022-05-12] MEDS ORDERED: KETAMINE 50 MG/5 ML SYRINGE ONE (15:50)
[2022-05-12] MEDS ORDERED: ceFAZolin 2000MG 2,000 MG/15 ML SYR IV ONE (16:07)
--- NOTE | 2022-05-12 16:18 | History & Physical Bridge Note ---
Date of Service May 12, 2022 History & Physical Bridge Note I have examined the patient, reviewed the History & Physical and in the interval since the performance of the History & Physical I have noted the following changes of clinical significance: We have been unsuccessful at attempting to obtain previous operative report for her previous right hip surgery. At this point, I cannot neither confirm nor disprove that her previous hip surgery was done for metastatic cancer lesion, although cannulated screws would be an unusual choice for this indication. I do not see any obvious metastatic disease anywhere in her bony pelvis or right femur. However, the patient continues to insist that she had previous history of metastatic cancer in her right hip. She currently has a periprosthetic intertrochanteric femur fracture in her right hip around the 2 inferior cannulated screws. Given this questionable history of metastatic disease, I will plan to do a long cephalomedullary nail rather than short. This does introduce a little higher risk of fat emboli from the intramedullary instrumentation of the entire femur. This was explained with patient and she concurs with the long nail. Risks, benefits, and alternatives of surgery were explained in detail. The surgical procedure, as well as postoperative recovery and rehabilitation, was also explained in detail. Risks include bleeding; infection; damage to surrounding structures such as nerves, blood vessels, and tendons that run in the area; persistent pain or stiffness; nonunion; malunion; hardware failure; painful prominent hardware requiring removal; or need for further surgery. The patient understands all of this and wishes to proceed with surgery. Informed consent was obtained.
[2022-05-12] MEDS ORDERED: BUPIVACAINE 0.5 % 5 MG/1 ML MPF 30ML VIAL ONE (16:50)
[2022-05-12] MEDS ORDERED: LIDOCAINE 1% LOCAL 20 ML VIAL ONE (16:50)
--- NOTE | 2022-05-12 18:45 | Fluoroscopy Report ---
FL hip RT 2-3V HISTORY: 66 years-old Female RT TROCH NAIL status post placement of an intratrochanteric nail with m edullary rosey. Acute proximal right femoral fracture. COMPARISON: Right femur radiographs May 10, 2022 TECHNIQUE: 4 spot fluoroscopic images of the right femur were obtained utilizing 74.3 seconds fluoros copy time FINDINGS: Status post removal of the cannulated screws of the femoral neck. Status post placement of an intratr ochanteric nail with medullary rosey traversing the acute proximal right femoral fracture. Satisfactory alignment with expected postoperative soft tissue swelling and deep tissue air. IMPRESSION: Fluoroscopic assistance as above. ACT 112: Negative or not required by law. The above report was generated using voice recognition software. It may contain grammatical, syntax o r spelling errors. Electronically signed by: Darron Driver M.D. 05/12/2022 6:44 PM
--- NOTE | 2022-05-12 18:57 | Operative Report ---
Post Operative Report Pre & Post Diagnosis Operation Date: 05/12/22 08:20 Pre-Op Diagnosis: Right hip periprosthetic intertrochanteric femur fracture Post-Op Diagnosis: Right hip periprosthetic intertrochanteric femur fracture I identified the patient and participated in the time-out.: Yes Procedure Operation Date: 05/12/22 08:20 Actual Procedures 1. Right hip hardware removal (68445) 2. Long cephalomedullary nailing of periprosthetic intertrochanteric femur fracture (95659) - Da Camara M.D. Surgeon Da Camara MD Piano [employer]ounding Board Matcher Martin Aguirre PA-C Estimated Blood Loss 50 Findings Consistent with Post-Op Diagnosis Specimens Right proximal hip intramedullary reamings for permanent pathologic identification Drains None Anesthesia Type General Complications none Disposition Disposition: Recovery Room Indications Ms. Amin is a 66-year-old female with progressively worsening right hip pain. She had a previous history of cannulated screw fixation across her right femoral, but the indication for this was unclear. She reports a history of metastatic cancer to her right hip, although no obvious metastatic lesions were seen on preoperative imaging. She had a periprosthetic fracture directly at the cannulated screw site, presumably from stress riser in the femoral cortex. Due to her reported history of metastatic disease, long cephalomedullary nailing was recommended. Risks, benefits, and alternatives of surgery were explained in detail. The patient understood all this and wished to proceed. Description of Procedure Implants: Synthes Long ([id number]) 130 degree Trochanteric Fixation Nail, 11mm helical blade, 5mm distal locking screw Patient was identified in the preoperative holding area. Operative extremity was marked. Patient was then brought back to the operating room, and general anesthesia was induced without complication. Appropriate weight-based dose of Ancef was infused intravenously for antibiotic prophylaxis. Patient was then positioned on the fracture table with the traction apparatus. The nonoperative hip was flexed and placed into the well leg ballard. Longitudinal traction was applied to the operative hip. Right hip was then prepped and draped in a standard sterile fashion using Chlorhexidine prep. I first reopened her previous lateral hip incision that was used for insertion of the cannulated screws. I incised sharply through the iliotibial band and came directly down onto the retained hardware. There were 4 previously placed cannulated screws. The 2 most inferior screws were directly touching. These did not appear to be Synthes 7.3 mm cannulated screws, as this screwdriver would not fit. When we finally identified an appropriate screwdriver, the 4 screws were removed without difficulty. I then proceeded with cephalomedullary nailing of this periprosthetic intertrochanteric fracture. I made an incision just proximal to the greater trochanter in line with the femoral shaft axis, and split the fibers of the iliotibial band. I then bluntly palpated down to the greater trochanter and inserted the guidewire down to the tip of the greater trochanter. It was appropriately positioned on AP and lateral images, and then driven into the proximal femur. I then inserted the soft tissue protector down to the tip of the greater trochanter and then passed the entry reamer over top of the guidewire. It was advanced down towards the lesser trochanter to open the proximal femur. I then inserted a ball-tipped guidewire down the femoral shaft towards the knee. Once it was in appropriate position, an appropriate length nail was selected. The femoral canal was then sequentially reamed up to 11.5 mm diameter to allow passage of an 10 mm diameter nail. The Synthes long TFN was then attached to the targeting arm and inserted into the proximal femur. I malleted it down to an appropriate depth for proper trajectory of the helical blade into the femoral head. Once the nail was at an appropriate depth, I then attached the targeting guide for the helical blade onto the targeting arm. Incision was made in line with the guide through the skin and iliotibial band. The guide sleeve was placed against the lateral cortex of the femur. Guidewire was then inserted through the guide and up into the femoral neck and head. I verified proper placement and trajectory under both AP and lateral images. I advanced the guidewire to the subchondral bone in the femoral head and verified proper depth on orthogonal images. I then measured the depth off of the guidewire. The drill for the helical blade was then set at an appropriate level to match the measured length. The drill was then advanced to the set depth. An appropriate length helical blade was selected and malleted into place over the guidewire. I then deployed the set screw proximally to prevent rotation of the helical blade during fracture compression. The proximal targeting arm was then removed. I then proceeded with distal locking screw insertion at the knee. "Perfect circles" was achieved with fluoroscopy for targeting of the distal static locking screw hole through the distal end of the nail. Both cortices of the femur were drilled through this distal locking hole. An appropriate length distal locking screw was selected and inserted. Final fluoroscopic images were then obtained to ensure proper hardware placement, screw length, and fracture reduction. The wounds were then copiously irrigated with sterile saline. I then closed the iliotibial band and deep dermal tissue with #0 Vicryl suture. Subcutaneous tissues closed with 3-0 Vicryl suture, and skin was closed with juliano. Sterile dressings were then applied with Xeroform, sterile gauze, and foam tape. Drapes were then removed and traction apparatus was disconnected. The patient was awakened from general anesthesia, transferred over to the stretcher, and taken to the Post Anesthesia Care Unit in stable condition. There were no immediate complications from the procedure. I was present and scrubbed for the entire procedure. Due to the complex nature of the procedure, the entire surgery was performed with the operational assistance of Martin Aguirre PA-C. The personnel security assistant, under direct supervision, was involved in the performance of all aspects of the surgical procedure including hemostasis, tissue incision and retraction, instrument management, patient positioning, and wound closure. I attest to the content of the Intraoperative Record and any orders documented therein. Any exceptions are noted below.
[2022-05-12] MEDS: fentaNYL citrate 100 MCG/2 ML VIAL IV PRN ×3 (19:20→19:30)
[2022-05-12] MEDS ORDERED: MEPERIDINE HCL 25 MG/ML CARP/VIAL IV PRN (19:23)
[2022-05-12] MEDS ORDERED: ePHEDrine sulfate 50 MG/ML AMP IV PRN (19:23)
[2022-05-12] MEDS ORDERED: ATROPINE SULFATE 0.1 MG/ML 10ML SYR IV PRN (19:23)
[2022-05-12] MEDS ORDERED: ONDANSETRON INJ 2 MG/ML 2 ML VIAL IV PRN ×2 (19:23→20:10)
[2022-05-12] MEDS ORDERED: LABETALOL HCL IV 5 MG/ML 20ML IV PRN (19:23)
[2022-05-12] MEDS ORDERED: PHENYLEPHRINE 100MCG/ML 5ML SYR IV PRN (19:23)
--- NOTE | 2022-05-12 19:49 | Anesthesiology Progress Note ---
Date of Service May 12, 2022 Anesthesia Post Procedure Vital Signs Vital Signs: Temp Pulse Pulse Resp BP Pulse Ox O2 Del Method 05/12/22 19:40 36.3 C L 72 12 130/60 99 Oxymask 05/12/22 19:20 86 14 128/57 L 100 Oxymask 05/12/22 19:10 82 17 134/69 100 Oxymask 05/12/22 19:30 88 21 127/57 L 99 Oxymask 05/12/22 19:00 80 15 124/68 100 Oxymask 05/12/22 18:54 36.4 C L 86 16 128/62 98 Oxymask 05/12/22 15:55 36.3 C L 67 20 123/63 96 Room Air 05/12/22 07:37 36.7 C 67 18 100/62 96 Room Air O2 Flow Rate 05/12/22 19:40 2 05/12/22 19:20 4 05/12/22 19:10 4 05/12/22 19:30 2 05/12/22 19:00 6 05/12/22 18:54 6 05/12/22 15:55 05/12/22 07:37 Pain Intensity Right Leg: Pain Intensity: 3 Transfer of Care Handoff Completed per policy Notes Mental Status: alert / awake / arousable Patient Amnestic to Procedure: Yes Nausea / Vomiting: adequately controlled Pain: adequately controlled Airway Patency, RR, SpO2: stable & adequate BP & HR: stable & adequate Hydration State: stable & adequate Anesthetic Complications: no major complications apparent and Pt Satisfied with anesthetic care Notes: The patient is awake and comfortable.
[2022-05-12] MEDS ORDERED: SODIUM CHLORIDE 0.9% 1000ML 1,000 ML IV SCH (20:10)
[2022-05-12] MEDS ORDERED: MAGNESIUM HYDROXIDE SUSP 30 ML UDC PO PRN (20:10)
[2022-05-12] MEDS ORDERED: METOCLOPRAMIDE HCL INJ 5 MG/ML 2 ML VIAL IV PRN (20:10)
[2022-05-12] MEDS ORDERED: bisacodyL 10 MG SUPP PR PRN (20:10)
[2022-05-12] MEDS ORDERED: NALOXONE HCL 0.4 MG/1 ML VIAL/CARP IV PRN (20:10)
[2022-05-12] MEDS: KETOROLAC TROMETHAMINE 15 MG/ML VIAL IV PRN (20:58)
--- NOTE | 2022-05-12 21:33 | Electrocardiogram Report ---
Test Reason : Blood Pressure : / mmHG Vent. Rate : 070 BPM Atrial Rate : 070 BPM P-R Int : 146 ms QRS Dur : 084 ms QT Int : 396 ms P-R-T Axes : 050 -29 058 degrees QTc Int : 427 ms Normal sinus rhythm Normal ECG When compared with ECG of 14-OCT-2008 21:26, No significant change was found Confirmed by Saurabh Ivan ([id number]) on 05/12/2022 9:33:06 PM Referred By: REFERRED SELF Confirmed By:Saurabh Ivan
[2022-05-12] MEDS: DOCUSATE SODIUM 100 MG CAP PO SCH (22:05)
[2022-05-12] MEDS: SENNA 8.6 MG TAB PO SCH (22:05)
[2022-05-13] MEDS: ceFAZolin 2000MG 2,000 MG/15 ML SYR IV SCH ×2 (00:40→09:23)
[2022-05-13] MEDS: DICLOFENAC SOD 1% GEL 100 GM TUBE EXT SCH ×4 (03:35→21:42)
[2022-05-13] MEDS: KETOROLAC TROMETHAMINE 15 MG/ML VIAL IV PRN ×3 (04:48→20:25)
[2022-05-13] MEDS: ACETAMINOPHEN 325 MG TAB PO SCH ×3 (05:11→21:41)
[2022-05-13 06:41] LABS: Hematocrit (blood only) 29.5 % (34.1-44.9); Hemoglobin 10.2 g/dl (12.0-16.0); Mean Corpuscular Hgb Conc 34.6 g/dL (32.0-36.0); Mean Corpuscular Volume 92.5 fL (80.0-100.0); Mean Platelet Volume 10.7 fL (9.4-12.3); Platelet Count 302 K/uL (130-400); RDW Coefficient of Variation 13.4 % (11.5-14.5); RDW Standard Deviation 45.8 fL (36.4-46.3); Red Blood Count 3.19 M/uL (3.93-5.22); White Blood Count 11.41 K/ul (4.8-10.8)
[2022-05-13 07:06] LABS: BUN Creatinine Ratio 35.2 (10-20); Calcium 7.8 mg/dl (8.5-10.1); Creatinine Clr Calc Pharmacy 44.3 ml/min; Est GFR (African American) 64.1 ml/min; Est GFR (Non-African American) 55.3 ml/min; Potassium 4.5 mmol/L (3.5-5.1)
[2022-05-13] MEDS: amLODIPine BESYLATE 5 MG TAB PO SCH (09:23)
[2022-05-13] MEDS: PANTOprazole 40 MG TAB PO SCH (09:23)
[2022-05-13] MEDS: valACYclovir HCL 500 MG TABLET PO SCH ×2 (09:23→20:12)
[2022-05-13] MEDS: DICLOFENAC SODIUM 75 MG TABCR PO SCH ×2 (09:23→20:12)
[2022-05-13] MEDS: MULTIVITAMIN TAB PO SCH (09:23)
[2022-05-13] MEDS: DOCUSATE SODIUM 100 MG CAP PO SCH ×2 (09:23→20:14)
[2022-05-13] MEDS: cefTRIAXone SODIUM 1,000 MG in DEXTROSE 5% AD-VAN 50 ML IV SCH (09:42)
--- NOTE | 2022-05-13 13:02 | Hospitalist Progress Note ---
Date of Service May 13, 2022 Assessment & Plan (1) Right hip pain: Plan Right hip periprosthetic intertrochanteric femur fracture Ambulatory dysfunction Patient reports history of "cervical and bone cancer cancer affecting her hip", Cervical cancer in 1980s. Bone cancer shortly after Femur X ray film report noted. No metastatic lesion noted. Uncertain if we can characterize her current fracture as pathologic, although patient denies fall or injury which would explain her current fracture otherwise POD#1 s/p Right hip hardware removal, long cephalomedullary nailing of periprosthetic intertrochanteric femur fracture by Dr. Camara Feeling well today with some post-op pain. Current regimen includes PRN tylenol and toradol. Will add 2mg IV morphine PRN for severe breakthrough pain (has tolerated in the past, multiple issues with itching 2/2 narcotics) Per ortho for pain control, wound care, anticoagulation and activities Monitor H&H (hgb 10.2 (pre-op 11.7), continue incentive spirometry, PT/OT when appropriate Hypertensive urgency: Likely secondary to acute pain, amlodipine, as needed medication -> resolved BP normotensive currently Asymptomatic COVID 19 infection: Patient test positive for COVID in the ED, patient on room air, without complaints of runny nose or myalgia or cough - Will check CXR to further evaluate DVT ppx SQ Lovenox Disposition Will need PT/OT evaluation post op Admission and Anticipated Discharge Date Admission Date: May 10, 2022 Supervising Physician Co-Signing Physician Notes Patient was seen and examined. Chart reviewed. Case discussed with NADEEM. Agree with assessment and plan as above Subjective Seen and evaluated in 300-1. Ambulation has been limited due to chronic hip pain and ambulatory dysfunction. Went to OR last evening and feeling well. Sitting up in bedside chair with ice on hip. No fever, chills, lightheadedness, CP, SOB, N/V, abdominal pain, dysuria. No bowel movement since Monday and started on regimen. Review of Systems Review of Systems: At least ten systems reviewed and negative except as noted in the HPI. Physical Exam Physical Exam: Gen: WD/WN, NAD, sitting in bed, A&Ox3 HEENT: Normocephalic, atraumatic, conjunctivae moist, sclerae anicteric, mucous membranes moist Lung: Breath sounds improved with scattered rhonchi Heart: Regular rate, regular rhythm, no murmurs, rubs, or gallops Abdomen: Soft, NT, ND +BS x 4 Extremities: no edema Skin: Warm, no rash Results & Data Results & Data ([facility]) Vital Signs (Past 12 Hours) Vital Signs Temp Pulse Resp BP Pulse Ox O2 Del Method O2 Flow Rate 05/13/22 09:16 36.2 C L 76 18 114/68 97 Room Air 05/13/22 03:20 36.3 C L 72 18 104/62 97 Oxymask 2 Laboratory Results Short CBC 05/13/22 Range/Units 05:38 WBC 11.41 H (4.8-10.8) K/ul Hgb 10.2 L (12.0-16.0) g/dl Hct 29.5 L (34.1-44.9) % Plt Count 302 (130-400) K/uL BMP 05/13/22 05:38 Sodium 134 L Potassium 4.5 Chloride 106 Carbon Dioxide 22 BUN 37 H Creatinine 1.05 D Glucose 135 H Calcium 7.8 L Diagnostic Findings Lumbar Spine CT 05/09/22 20:37 CT lumbar spine wo con CLINICAL HISTORY: right hip pain TECHNIQUE: Multidetector row helical CT of the lumbar spine was performed without administration of intravenous contrast. Coronal and sagittal reformations were obtained. Automated dose lowering techniques and/or adjustment according to patient size were utilized for this exam. Comparison: Comparison is made to lumbar spinal radiograph 06/25/[address] lumbar spine 05/02/2017 FINDINGS: For counting purposes, the last complete intervertebral disc space is considered L5-S1. No acute fractures are seen. Chronic compression fractures are seen spanning L2- L4 with postoperative changes compatible with kyphoplasty. Multilevel degenerative changes are seen. Vertebral body alignment is within normal limits. Atherosclerosis is seen with a tiny infrarenal aortic aneurysm. IMPRESSION: No acute fractures. Old fractures with postkyphoplasty change. ACT 112: Negative or not required by law. Electronically signed by: Avery Hearn M.D. 05/10/2022 7:[address] 05/09/22 20:41 CT pelvis wo con HISTORY: 66 years-old Female right hip pain acute right hip pain status post fall COMPARISON: CT lumbar spine of same day, pelvis and right hip radiographs 04/24/2022, 02/28/2019, 12/23/2013 TECHNIQUE: Multiple axial CT images of the pelvis was obtained without the use of IV contrast. A dose lowering technique was used consistent with the principals of ALARA. FINDINGS: Atherosclerosis of the aorta and iliac arteries. No lymphadenopathy identified. Postoperative changes of the anterior abdominal wall. Prior hysterectomy with numerous surgical clips of the pelvis. No bowel obstruction or bowel wall thickening identified. Ossifications are noted within the proximal right thigh soft tissues. Chronic L3-L4 compression deformities with kyphoplasty changes. Demineralized appearance of the bones. 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 No acute sacral insufficiency fracture identified. No acute pelvic ring fracture identified. There are 4 intact cannulated screws traversing the right femoral neck there is an age-indeterminate subtle nondisplaced mildly comminuted transverse fracture involving the proximal right femur at the level of the lesser trochanter seen nicely on the coronal images. IMPRESSION: 1. ORIF changes of the proximal right femur have been present dating back to 2013 with intact cannulated screws traversing the femoral neck. 2. There is a nondisplaced transversely oriented fracture involving the proximal right femur at the level of the lesser trochanter, likely acute or subacute. This finding was called/faxed to the floor at time of dictation. ACT 112: Negative or not required by law. The above report was generated using voice recognition software. It may contain grammatical, syntax or spelling errors. Electronically signed by: Darron Driver M.D. 05/10/2022 7:35 AM Femur X-Ray 05/10/22 13:24 XR femur RT 2V routine CLINICAL HISTORY: h/o proximal fx COMPARISON: Pelvis and right hip radiographs April 24, 2022. CT of the pelvis May 09, 2022. FINDINGS: 3 cannulated screws fixate the right femoral neck. The hardware is intact. Note is made of an acute appearing nondisplaced comminuted transverse fracture of the proximal right femur at the level of the lesser trochanter that extends to the inferior most screw. No distal right femoral fracture is noted. Alignment of the right knee is anatomic. There is no right knee joint effusion. IMPRESSION: Acute appearing comminuted nondisplaced transverse fracture of the proximal right femur at the level of the lesser trochanter that extends to the base of the inferior most femoral neck screw. ACT 112: Negative or not required by law. Electronically signed by: Geovany Wiley M.D. 05/10/2022 3:18 PM Chest X-Ray 05/11/22 16:01 SINGLE VIEW CHEST CLINICAL HISTORY: Preoperative examination. Positive Covid test. FINDINGS: An AP, portable, upright chest radiograph is compared to study dated 05/02/2017. The cardiomediastinal silhouette is unremarkable noting atherosclerotic calcification of the thoracic aorta. Chronic interstitial thickening is similar to previous. The lungs and pleural spaces are clear. No pneumothorax is seen. The skeletal structures are osteopenic. There is evidence of previous vertebroplasty in the upper lumbar spine. IMPRESSION: No active disease in the chest. ACT 112: Negative or not required by law. Electronically signed by: Tee Pimentel M.D. 05/11/2022 5:23 PM Hip X-Ray 05/12/22 00:00 FL hip RT 2-3V HISTORY: 66 years-old Female RT TROCH NAIL status post placement of an intratrochanteric nail with medullary rosey. Acute proximal right femoral fracture. COMPARISON: Right femur radiographs May 10, 2022 TECHNIQUE: 4 spot fluoroscopic images of the right femur were obtained utilizing 74.3 seconds fluoroscopy time FINDINGS: Status post removal of the cannulated screws of the femoral neck. Status post placement of an intratrochanteric nail with medullary rosey traversing the acute proximal right femoral fracture. Satisfactory alignment with expected postoperative soft tissue swelling and deep tissue air. IMPRESSION: Fluoroscopic assistance as above. ACT 112: Negative or not required by law. The above report was generated using voice recognition software. It may contain grammatical, syntax or spelling errors. Electronically signed by: Darron Driver M.D. 05/12/2022 6:44 PM
--- NOTE | 2022-05-13 17:16 | Orthopedic Progress Note ---
Date of Service May 13, 2022 Assessment & Plan (1) Closed fracture of proximal end of right femur: Plan: POD 1 s/p Right TFN PT/OT protocols. DVT prophylaxis - Lovenox, SCD's, JARRELL's Pain management as written. Admission and Anticipated Discharge Date Admission Date: May 10, 2022 Subjective POD 1 Pt sitting up in bed awake, alert. No complaints. Comfortable. Pain controlled. Physical Exam Physical Exam: Dressings C/D/I. Calves soft, NT. NV intact. Toes mobile. Results & Data ([facility]) Vital Signs (Past 12 Hours) Vital Signs Temp Pulse Resp BP Pulse Ox O2 Del Method 05/13/22 14:40 36.8 C 73 18 107/62 97 Room Air 05/13/22 09:16 36.2 C L 76 18 114/68 97 Room Air Laboratory Results Laboratory Results WBC 11.41 K/ul (4.8-10.8) H 05/13/22 05:38 RBC 3.19 M/uL (3.93-5.22) L 05/13/22 05:38 Hgb 10.2 g/dl (12.0-16.0) L 05/13/22 05:38 Hct 29.5 % (34.1-44.9) L 05/13/22 05:38 MCV 92.5 fL (80.0-100.0) 05/13/22 05:38 MCH 32.0 pg (25.0-34.0) 05/13/22 05:38 MCHC 34.6 g/dL (32.0-36.0) 05/13/22 05:38 RDW Std Deviation 45.8 fL (36.4-46.3) 05/13/22 05:38 RDW Coeff of Marcelino 13.4 % (11.5-14.5) 05/13/22 05:38 Plt Count 302 K/uL (130-400) 05/13/22 05:38 MPV 10.7 fL (9.4-12.3) 05/13/22 05:38 Immature Gran % (Auto) 0.6 % 05/12/22 08:34 Neut % (Auto) 71.2 % 05/12/22 08:34 Lymph % (Auto) 20.6 % 05/12/22 08:34 [place] % (Auto) 6.1 % 05/12/22 08:34 Eos % (Auto) 1.1 % 05/12/22 08:34 Baso % (Auto) 0.4 % 05/12/22 08:34 Neut # (Auto) 8.22 K/uL (1.4-6.5) H 05/12/22 08:34 Lymph # (Auto) 2.38 K/uL (1.2-3.4) 05/12/22 08:34 [place] # (Auto) 0.71 K/uL (0.24-0.82) 05/12/22 08:34 Eos # (Auto) 0.13 K/uL (0-0.50) 05/12/22 08:34 Baso # (Auto) 0.05 K/uL (0-0.2) 05/12/22 08:34 Immature Gran # (Auto) 0.07 K/uL (0.00-0.02) H 05/12/22 08:34 Absolute Nucleated RBC Cancelled 05/11/22 07:26 Nucleated RBC % (auto) Cancelled 05/11/22 07:26 Platelet Estimate Cancelled 05/11/22 07:26 PT 10.2 Seconds (9.0-12.0) 05/12/22 08:34 INR 1.0 (0.9-1.1) 05/12/22 08:34 Sodium 134 mmol/L (136-145) L 05/13/22 05:38 Potassium 4.5 mmol/L (3.5-5.1) 05/13/22 05:38 Chloride 106 mmol/L (98-107) 05/13/22 05:38 Carbon Dioxide 22 mmol/L (21-32) 05/13/22 05:38 Anion Gap 6 (3-11) 05/13/22 05:38 BUN 37 mg/dl (6-23) H 05/13/22 05:38 Creatinine 1.05 mg/dl (0.6-1.2) D 05/13/22 05:38 Est Cr Clr Drug Dosing 44.3 ml/min 05/13/22 05:38 Est GFR ( Amer) 64.1 ml/min 05/13/22 05:38 Est GFR (Non-Af Amer) 55.3 ml/min 05/13/22 05:38 BUN/Creatinine Ratio 35.2 (10-20) H 05/13/22 05:38 Glucose 135 mg/dl (70-99(Fasting)) H 05/13/22 05:38 Calcium 7.8 mg/dl (8.5-10.1) L 05/13/22 05:38 Phosphorus 2.9 mg/dl (2.5-4.9) 05/11/22 07:26 Magnesium 2.1 mg/dl (1.7-2.4) 05/11/22 07:26 Urine Color Yellow 05/12/22 11:10 Urine Appearance Turbid (Clear) A 05/12/22 11:10 Urine pH 5.0 (4.5-7.5) 05/12/22 11:10 Ur Specific [place] 1.019 (1.000-1.030) 05/12/22 11:10 Urine Protein 1+ (Negative) H 05/12/22 11:10 Urine Glucose (UA) Negative (Negative) 05/12/22 11:10 Urine Ketones Negative (Negative) 05/12/22 11:10 Urine Blood 2+ (Negative) H 05/12/22 11:10 Urine Nitrite Positive (Negative) A 05/12/22 11:10 Urine Bilirubin Negative (Negative) 05/12/22 11:10 Urine Urobilinogen Negative (Negative) 05/12/22 11:10 Ur Leukocyte Esterase 3+ (Negative) H 05/12/22 11:10 Urine WBC (Auto) >30 /hpf (0-5) H 05/12/22 11:10 Urine RBC (Auto) 10-30 /hpf (0-4) H 05/12/22 11:10 U Hyaline Cast (Auto) 5-10 /lpf (0-5) H 05/12/22 11:10 U Epithel Cells (Auto) >30 /lpf (0-5) H 05/12/22 11:10 Urine Bacteria (Auto) 4+ (Negative) H 05/12/22 11:10 SARS-CoV-2, RNA, NAAT POSITIVE (NEGATIVE) A* 05/10/22 01:10 Blood Type A Positive 05/11/22 19:25 Antibody Screen NEGATIVE 05/11/22 19:25 Impressions Hip X-Ray 05/12/22 00:00 FL hip RT 2-3V HISTORY: 66 years-old Female RT TROCH NAIL status post placement of an intratrochanteric nail with medullary rosey. Acute proximal right femoral fracture. COMPARISON: Right femur radiographs May 10, 2022 TECHNIQUE: 4 spot fluoroscopic images of the right femur were obtained utilizing 74.3 seconds fluoroscopy time FINDINGS: Status post removal of the cannulated screws of the femoral neck. Status post placement of an intratrochanteric nail with medullary rosey traversing the acute proximal right femoral fracture. Satisfactory alignment with expected postoperative soft tissue swelling and deep tissue air. IMPRESSION: Fluoroscopic assistance as above. ACT 112: Negative or not required by law. The above report was generated using voice recognition software. It may contain grammatical, syntax or spelling errors. Electronically signed by: Darron Driver M.D. 05/12/2022 6:44 PM
[2022-05-13] MEDS: SENNA 8.6 MG TAB PO SCH (20:14)
[2022-05-14] MEDS: DICLOFENAC SOD 1% GEL 100 GM TUBE EXT SCH ×4 (05:04→21:40)
[2022-05-14] MEDS: ACETAMINOPHEN 325 MG TAB PO SCH ×3 (05:05→21:40)
[2022-05-14] MEDS: KETOROLAC TROMETHAMINE 15 MG/ML VIAL IV PRN (05:10)
[2022-05-14 06:34] LABS: Hematocrit (blood only) 28.8 % (34.1-44.9); Hemoglobin 9.9 g/dl (12.0-16.0); Mean Corpuscular Hemoglobin 32.1 pg (25.0-34.0); Mean Corpuscular Hgb Conc 34.4 g/dL (32.0-36.0); Mean Corpuscular Volume 93.5 fL (80.0-100.0); Mean Platelet Volume 10.4 fL (9.4-12.3); Platelet Count 328 K/uL (130-400); RDW Coefficient of Variation 13.9 % (11.5-14.5); RDW Standard Deviation 47.2 fL (36.4-46.3); Red Blood Count 3.08 M/uL (3.93-5.22); White Blood Count 10.91 K/ul (4.8-10.8)
[2022-05-14 07:28] LABS: BUN Creatinine Ratio 27.8 (10-20); Creatinine Clr Calc Pharmacy 29.5 ml/min; Est GFR (African American) 39.1 ml/min; Est GFR (Non-African American) 33.7 ml/min; Potassium 4.2 mmol/L (3.5-5.1)
[2022-05-14] MEDS: cefTRIAXone SODIUM 1,000 MG in DEXTROSE 5% AD-VAN 50 ML IV SCH (09:12)
[2022-05-14] MEDS: MULTIVITAMIN TAB PO SCH (09:14)
[2022-05-14] MEDS: DOCUSATE SODIUM 100 MG CAP PO SCH ×2 (09:14→20:27)
[2022-05-14] MEDS: amLODIPine BESYLATE 5 MG TAB PO SCH (09:14)
[2022-05-14] MEDS: PANTOprazole 40 MG TAB PO SCH (09:14)
[2022-05-14] MEDS: valACYclovir HCL 500 MG TABLET PO SCH ×2 (09:15→20:27)
[2022-05-14] MEDS: DICLOFENAC SODIUM 75 MG TABCR PO SCH ×2 (09:16→20:27)
--- NOTE | 2022-05-14 13:10 | Orthopedic Progress Note ---
Date of Service May 14, 2022 Assessment & Plan (1) Closed fracture of proximal end of right femur: Plan: Postoperative day #2 status post right hip hardware removal and long cephalomedullary nailing of periprosthetic intertrochanteric femur fracture. -She may weight-bear as tolerated on the right leg. -Daily dressing change by nursing. -Discharge when able from a medicine perspective. -Follow-up with Dr. Camara in orthopedic surgery clinic 10 to 14 days from surgery. Please call [facility] at [phone] to make an appointment. -Orthopedic specific discharge instructions placed in the discharge section of the chart. -Orthopedics will sign off at this point. Call with questions. Admission and Anticipated Discharge Date Admission Date: May 10, 2022 Subjective Patient seen and examined. She is resting comfortably in bed. She states that she has been up sitting in a chair since surgery, but not yet walking. Right hip pain is well controlled. Physical Exam Physical Exam: Right thigh is soft and compressible. Small amount of serosanguineous drainage on the proximal dressing only. Motor and sensory function is intact distally. Results & Data ([facility]) Vital Signs (Past 12 Hours) Vital Signs Temp Pulse Resp BP Pulse Ox O2 Del Method 05/14/22 09:30 Room Air 05/14/22 08:52 36.4 C L 64 16 129/68 94 Room Air
--- NOTE | 2022-05-14 15:07 | Hospitalist Progress Note ---
Date of Service May 14, 2022 Assessment & Plan (1) Right hip pain: Plan Right hip pain- Femoral Fracture, Nondisplaced, Lesser Trochanter Ambulatory dysfunction -Patient reports history of "cervical and bone cancer cancer affecting her hip", Cervical cancer in 1980s. Bone cancer shortly after. History of right hip surgery at [place] (she thinks it was in the ) but she can not recall why she had hip surgery, attempting to get Op report currently -Appreciate Ortho input. Femur X ray film report noted. No metastatic lesion noted. Uncertain if we can characterize her current fracture as pathologic, although patient denies fall or injury which would explain her current fracture otherwise. Defer surgical management to orthopedic surgery. Tentatively planned for OR -Preop Eval: CXR without active disease, ECG NSR. Low surgical risk Hypertensive urgency: Likely secondary to acute pain, amlodipine, as needed medication. - BP normotensive currently JOSE -Cr rising. In setting of UTI. Will start NSS at 80cc/hr. Repeat BMP tomorrow E coli UTI -ceftriaxone Asymptomatic COVID 19 infection: Patient test positive for COVID in the ED, patient on room air, without complaints of runny nose or myalgia or cough. -CXR negative for pneumonia DVT ppx - lovenox Disposition -SNF Admission and Anticipated Discharge Date Admission Date: May 10, 2022 Subjective Doing well. Got out of bed to chair with PT. Voided without chahal today Reports suprapubic pain No fever/chills Physical Exam Physical Exam: Sitting in bed, pleasant and comfortable Respiratory: Breathing comfortably on room air, no wheezing/rhonchi/rales Cardiovascular: regular rate and rhythm, no murmurs/rubs/gallops Gastrointestinal (Abdomen): soft, non distended Musculoskeletal: no edema Results & Data Results & Data ([facility]) Vital Signs (Past 12 Hours) Vital Signs Temp Pulse Resp BP Pulse Ox O2 Del Method 05/14/22 09:30 Room Air 05/14/22 08:52 36.4 C L 64 16 129/68 94 Room Air
[2022-05-14] MEDS: SODIUM CHLORIDE 0.9% 1000ML 1,000 ML IV SCH (15:34)
[2022-05-14] MEDS: ENOXAPARIN INJ 30 MG/0.3 ML SYR SQ SCH (20:26)
[2022-05-14] MEDS: SENNA 8.6 MG TAB PO SCH (20:27)
[2022-05-14] MEDS: MoRPHine SULFATE 2 MG/ML CARP IV PRN (23:01)
[2022-05-15] MEDS: SODIUM CHLORIDE 0.9% 1000ML 1,000 ML IV SCH ×2 (03:15→15:56)
[2022-05-15] MEDS: DICLOFENAC SOD 1% GEL 100 GM TUBE EXT SCH ×4 (04:03→21:27)
[2022-05-15] MEDS: ACETAMINOPHEN 325 MG TAB PO SCH ×3 (06:07→21:26)
[2022-05-15] MEDS: MULTIVITAMIN TAB PO SCH (08:44)
[2022-05-15] MEDS: PANTOprazole 40 MG TAB PO SCH (08:44)
[2022-05-15] MEDS: DOCUSATE SODIUM 100 MG CAP PO SCH ×2 (08:45→20:27)
[2022-05-15] MEDS: amLODIPine BESYLATE 5 MG TAB PO SCH (08:45)
[2022-05-15] MEDS: DICLOFENAC SODIUM 75 MG TABCR PO SCH ×2 (08:46→20:26)
[2022-05-15] MEDS: valACYclovir HCL 500 MG TABLET PO SCH ×2 (08:46→20:26)
[2022-05-15] MEDS: cefTRIAXone SODIUM 1,000 MG in DEXTROSE 5% AD-VAN 50 ML IV SCH (08:57)
--- NOTE | 2022-05-15 17:12 | Hospitalist Progress Note ---
Date of Service May 15, 2022 Assessment & Plan (1) Right hip pain: Plan Right hip pain- Femoral Fracture, Nondisplaced, Lesser Trochanter Ambulatory dysfunction -Patient reports history of "cervical and bone cancer cancer affecting her hip", Cervical cancer in 1980s. Bone cancer shortly after. History of right hip surgery at [place] (she thinks it was in the ) but she can not recall why she had hip surgery, attempting to get Op report currently -Appreciate Ortho input. Surgery 05/12/2022 Hypertensive urgency: Likely secondary to acute pain -No history of HTN, reports some light headedness when getting up. Will discontinue amlodipine JOSE -Cr rising. In setting of UTI. -Tolerating diet. Received 1 day of NSS. Will stop further fluids -repeat BMP tomorrow E coli UTI -ceftriaxone --change to Keflex to finish 5 day course Asymptomatic COVID 19 infection: Patient test positive for COVID in the ED, patient on room air, without complaints of runny nose or myalgia or cough. -CXR negative for pneumonia DVT ppx - lovenox Disposition -SNF Admission and Anticipated Discharge Date Admission Date: May 10, 2022 Subjective Slept reasonable well overnight. Tolerating diet. BM yesterday Pain is controlled Reports some light headedness when getting up. Medications reviewed, she is on amlodipine which was started here for hypertension when she first got here-- patient denies history of HTN and review of EKG does not show LVH. Physical Exam Physical Exam: Appears well. No acute distress. Pleasant Respiratory: Breathing comfortably on room air, no wheezing/rhonchi Cardiovascular: Regular rate and rhythm, no murmurs/rubs Gastrointestinal (Abdomen): soft, non tender Musculoskeletal: No edema Neurologic: awake, alert Results & Data Results & Data ([facility]) Vital Signs (Past 12 Hours) Vital Signs Temp Pulse Resp BP Pulse Ox O2 Del Method 05/15/22 15:08 36.7 C 71 20 113/64 96 Room Air 05/15/22 08:40 36.5 C 65 17 117/60 94 Room Air
[2022-05-15] MEDS: cephALEXin 500 MG CAP PO SCH (20:25)
[2022-05-15] MEDS: SENNA 8.6 MG TAB PO SCH (20:26)
[2022-05-15] MEDS: ENOXAPARIN INJ 30 MG/0.3 ML SYR SQ SCH (20:27)
[2022-05-15] MEDS: MoRPHine SULFATE 2 MG/ML CARP IV PRN (21:27)
[2022-05-16] MEDS: MoRPHine SULFATE 2 MG/ML CARP IV PRN (02:53)
[2022-05-16] MEDS: DICLOFENAC SOD 1% GEL 100 GM TUBE EXT SCH ×2 (03:49→10:47)
[2022-05-16] MEDS: ACETAMINOPHEN 325 MG TAB PO SCH ×2 (05:22→13:34)
[2022-05-16 06:47] LABS: BUN Creatinine Ratio 28.7 (10-20); Creatinine Clr Calc Pharmacy 43.1 ml/min; Est GFR (African American) 61.9 ml/min; Est GFR (Non-African American) 53.5 ml/min; Potassium 3.9 mmol/L (3.5-5.1)
[2022-05-16] MEDS: MULTIVITAMIN TAB PO SCH (07:33)
[2022-05-16] MEDS: valACYclovir HCL 500 MG TABLET PO SCH (07:34)
[2022-05-16] MEDS: DOCUSATE SODIUM 100 MG CAP PO SCH (07:34)
[2022-05-16] MEDS: PANTOprazole 40 MG TAB PO SCH (07:34)
[2022-05-16] MEDS: cephALEXin 500 MG CAP PO SCH (07:34)
[2022-05-16] MEDS: DICLOFENAC SODIUM 75 MG TABCR PO SCH (07:35)
--- NOTE | 2022-05-16 16:00 | Discharge Summary ---
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 Patient received IM Decadron and Toradol in the ED, patient refused to get up due to reported severe right hip pain and hence patient is being admitted for pain control/PT and OT evaluation and likely placement. Patient denies any fever or sore throat, patient reports chronic cough with scant whitish sputum, patient denies any chest pain or palpitation or acute changes in her bowel or bladder habits. Patient also reports decreasing appetite since 1 week. Patient currently smokes 2 cigarettes a day, has been smoking since a long time, at peak she smoked around 1 packs a day, couselled on smoking cessation, offered nicotine patch -->declined nicotine patch. Patient denies use of alcohol/recreational drugs. DNR/DNI as per my discussion with the patient. 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 Medications were reviewed with the patient. Plan of care was discussed with the patient. Principal Diagnosis Right hip periprosthetic intertrochanteric femur fracture E coli UTI JOSE Asymptomatic Covid 19 infection Discharge Exam Pleasant, comfortable, no acute distress Respiratory Breathing comfortably on room air, no wheezing/rhonchi/rales Cardiovascular Regular rate and rhythm, no murmurs/rubs/gallops Gastrointestinal (Abdomen) soft, non tender Musculoskeletal No edema Neurologic awake, alert, spontaneously moving extremities Discharge Data Allergies Allergy/AdvReac Type Severity Reaction Status Date / Time Benzodiazepines Allergy Mild ITCH Verified 05/10/22 00:52 chlordiazepoxide Allergy Mild ITCH Verified 05/10/22 00:52 clidinium Allergy Mild ITCH Verified 05/10/22 00:52 gabapentin Allergy Mild ITCH Verified 05/10/22 00:52 hydrocodone Allergy Mild Itch Verified 05/10/22 00:52 oxycodone Allergy Mild Itch Verified 05/10/22 00:52 belladonna alkaloids Allergy Unknown ITCHING Verified 05/10/22 00:52 yellow dye Allergy Unknown . Verified 05/10/22 00:52 Tramadol Allergy Mild Itch Uncoded 05/10/22 00:52 Methscopolamine Allergy Unknown . Uncoded 05/10/22 00:52 Consultations 05/10/22 00:11 ED Decision to Admit Stat 05/10/22 02:26 Consult Orthopedic Surgery Routine Procedures Performed Operation Date: 05/12/22 08:20 Actual Procedures p Right Troch Nail, Removal 7.0/7.3 Cannulated Screws(Right) - Da Camara M.D. Ordered Studies 05/09/22 20:37 CT lumbar spine wo con Urgent 05/09/22 20:41 CT pelvis wo con Urgent 05/12/22 FL hip RT 2-3V Routine Hospital Course (1) Right hip pain: Plan Right hip pain- Femoral Fracture, Nondisplaced, Lesser Trochanter Ambulatory dysfunction -Patient reports history of "cervical and bone cancer cancer affecting her hip", Cervical cancer in . Bone cancer shortly after. History of right hip surgery at [place] (she thinks it was in the ) but she can not recall why she had hip surgery, attempting to get Op report currently -Appreciate Ortho input. Surgery 05/12/22 1. Right hip hardware removal 2. Long cephalomedullary nailing of periprosthetic intertrochanteric femur fracture Hypertensive urgency: Likely secondary to acute pain -No history of HTN -was placed on amlodipine while here which was later discontinued. Blood pressure normotensive off medications when pain is well controlled JOSE -Cr rising. In setting of UTI. -renal function normalized prior to discharge E coli UTI -received ceftriaxone while here, discharged on Keflex to finish 5 day course Asymptomatic COVID 19 infection: Patient test positive for COVID in the ED, patient on room air, without complaints of runny nose or myalgia or cough. -CXR negative for pneumonia Total Time Total Time Spent Total Time Spent (In Minutes): 35 Discharge Plan Discharge Items Patient Disposition: Transfer Detention Fac Reason For Visit: RT HIP PAIN Discharge Diagnosis: Right hip periprosthetic intertrochanteric femur fracture Condition on Discharge: Good Activity: Per Instructions section Weightbearing: Full weightbearing Non-emergency contact: Surgeon Call non-emergency contact if: your pain is not controlled, your temperature is above 101.5, your wound has increased redness and your wound has increased drainage Follow-up/Referrals: Ludwig Garcia, DO [Primary Care Provider] - Da Camara M.D. [Physician] - Diet: Regular Addtl Attending Provider Instructions: Things to Watch Out For -Go to the Emergency Room if you have sudden onset of chest pain, shortness of breath, or uncontrollable pain. -Call the orthopedics clinic immediately if you have a sudden increase in the amount of wound drainage or the drainage becomes thick, yellow or green, or foul-smelling. -For routine questions regarding your hip surgery, call the orthopedics clinic at [phone] during regular business hours (8am-5pm). For urgent issues after regular business hours, you may call the clinic to be connected to the on-call physician. Dressings -Keep your dressings clean, dry, and in place for 4 days after surgery. After 4 days postoperatively, you may remove the dressing and cover the incisions with new clean dressings. Be sure to wash your hands thoroughly before touching your incisions. Apply a new dressing daily thereafter. -You may begin showering after your first dressing change (4 days after surgery). You may let the water run BRIEFLY over the incisions, but do not soak the incisions in the bathtub or pool for 2 weeks. You may also gently clean the incisions with mild soap and water; pat the incision dry after cleaning-do not rub the incisions. -You may use an antibiotic ointment (Bacitracin, Polysporin) if desired, but this is not necessary. Weight Bearing -You may weight bear as tolerated on your operative leg. Use a walker if necessary for support and balance. Followup -You will need to follow-up with Dr. Camara in orthopedic surgery clinic 10- 14 days after surgery. Please call [facility] at [phone] to make an appointment. Pending Studies at Discharge: No Stand-Alone Forms: My [facility] Skilled Items Patient informed of condition?: Yes DNR: Yes Discharge Level of Care: Skilled Communicable Disease: No Discharge Prognosis: Stable Lines: None Urinary Catheter: No Medications and DC Order Prescriptions: New cephalexin 500 mg Capsule 500 mg PO BID 2 Days Qty: 4 0RF acetaminophen 325 mg Tablet 650 mg PO Q8 7 Days Qty: 42 0RF docusate sodium 100 mg Capsule 100 mg PO BID 7 Days Qty: 14 0RF polyethylene glycol 3350 [Miralax] 17 gram Powder In Packet 17 g PO DAILY PRN (Reason: constipation) 7 Days Qty: 14 0RF multivitamin with folic acid [Daily-Violet (with folic acid)] 400 mcg Tablet 1 tab PO QAM Qty: 30 0RF morphine 15 mg tablet 7.5 mg PO Q6H PRN (Reason: pain) Qty: 7 0RF Continued lidocaine [Salonpas (lidocaine)] 4 % Adhesive Patch,Medicated 1 patch TOPICAL DAILY PRN (Reason: Pain) valacyclovir 500 mg tablet 500 mg PO BID omeprazole 20 mg capsule,delayed release(DR/EC) 20 mg PO DAILY diclofenac sodium 75 mg tablet,delayed release (DR/EC) 75 mg PO BID dicyclomine 10 mg capsule 10 mg PO QID PRN (Reason: .Abd cramping) Discharge Orders: Discharge Order (Routine); Ordered 05/16/22 Ordered By: Melani Crawford Admission Data Admit Date/Time: 05/10/22 02:27 Attending Provider: Melani Crawford Admit Provider: Diane Fletcher Primary Care Provider: Ludwig Garcia Other Providers: Moo Palma ; Nithya Fry ; Diane Fletcher ; Billy Andres ; Nile Bella ; Katherine Giron Thomas J ; Marianne Somers ; Martin Aguirre ; Ricki Mann ; Arnold Delgado Andrew J. ; Ricki Koroma ; Sheng Garcia ; Marquez Caballero ; Deandre Moreno ; Hammad Church ; Marianne Webb ; Keyur Madrid ; Da Camara ; Maura Moore ; Nima Mirza Alexis N. ; Desirae Trivedi ; Darron Espinosa ; Madelyn Reinoso ; [facility] Other Interventions: Discharge Summary Assessment (RN) Last Done: 05/16/22 12:48
[2022-05-16] MEDS ORDERED: ENOXAPARIN INJ 40 MG/0.4 ML SYR SQ SCH (21:00)
== END 2022-05-16 14:04 | DRG 480 ==
LOC: ED 19:42 → 3E 05-10 02:27 → SUATTDRO 05-10 02:27 → 3E 05-10 03:09

== ENCOUNTER 2022-07-24 21:46 | Inpatient (IN) ==
[2022-07-24] MEDS ORDERED: ACETAMINOPHEN 1,000 MG/100 ML VIAL IV STA (21:54)
[2022-07-24] MEDS ORDERED: SODIUM CHLORIDE 0.9% 500 ML IV STA (21:54)
[2022-07-24] MEDS ORDERED: PANTOprazole 80 MG in DEXTROSE 5% 100 ML IV STA (22:09)
[2022-07-24] MEDS ORDERED: ONDANSETRON INJ 2 MG/ML 2 ML VIAL IV STA (22:09)
[2022-07-24] MEDS ORDERED: FAMOTIDINE 20MG IV PUSH 20 MG/5 ML SYR IV STA (22:09)
[2022-07-24] MEDS ORDERED: SODIUM CHLORIDE 0.9% 250 ML IV PRN (22:09)
[2022-07-24 22:13] LABS: iSTAT Creatinine 1.4 mg/dl (0.6-1.3); iSTAT Hemoglobin 6.5 g/dl (12.0-16.0); iSTAT Ionized Calcium 1.16 mmol/l (1.12-1.32); iSTAT Potassium 3.5 mmol/L (3.3-5.0)
--- NOTE | 2022-07-24 22:26 | Emergency Department Note ---
History of Present Illness General Chief complaint: Chest Pain Stated complaint: CHEST PAIN Time Seen by Provider: 07/24/22 21:51 History of Present Illness Maximum Pain Intensity: 8 This 66-year-old female presents to the ER complaining of chest pains that been intermittent for the past few weeks with dark stool. Patient's initial complaint was chest pain but after her H&H came back low then she disclosed that she has been having dark stool for the past few weeks. Patient states she had a blood transfusion 30 years ago with her chemotherapy but nothing since then. Patient states she is been having intermittent chest pains that is nonexertional. She continues to smoke. No history of blood clots. She had surgery recently. Patient denies fevers, vomiting, hematemesis, flulike illness. No alcohol use. Home Medications Medication Instructions Recorded Confirmed Type dicyclomine 10 mg capsule 10 mg PO QID PRN .Abd cramping 05/10/22 07/25/22 History omeprazole 20 mg capsule,delayed 20 mg PO DAILYBB 05/10/22 07/25/22 History release valacyclovir 500 mg tablet 500 mg PO AMPM 05/10/22 07/25/22 History aspirin 325 mg capsule 325 mg PO DAILY #30 caps 05/16/22 07/25/22 Rx morphine 15 mg immediate release 7.5 mg PO Q6H PRN pain #7 tabs 05/16/22 Rx tablet multivitamin with folic acid 400 1 tab PO QAM #30 tabs 05/16/22 Rx mcg tablet (Daily-Violet (with folic acid)) Allergies Allergy/AdvReac Type Severity Reaction Status Date / Time Benzodiazepines Allergy Mild ITCH Verified 07/25/22 00:46 chlordiazepoxide Allergy Mild ITCH Verified 07/25/22 00:46 clidinium Allergy Mild ITCH Verified 07/25/22 00:46 gabapentin Allergy Mild ITCH Verified 07/25/22 00:46 hydrocodone Allergy Mild Itch Verified 07/25/22 00:46 oxycodone Allergy Mild Itch Verified 07/25/22 00:46 belladonna alkaloids Allergy Unknown ITCHING Verified 07/25/22 00:46 yellow dye Allergy Unknown . Verified 07/25/22 00:46 risedronate sodium Allergy Unknown Verified 07/25/22 00:46 Tramadol Allergy Mild Itch Uncoded 07/25/22 00:46 Methscopolamine Allergy Unknown . 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 Treated in [place]. Dr Cespedes. Chemo and radiation. R hip pinning " Closed fracture of proximal end of right femur COVID-19 HTN (hypertension) Lumbar compression fracture Right hip pain RLS (restless legs syndrome) Vulvar neoplasm Surgical History History of hip surgery History of vertebroplasty Family History Other Cancer Heart disease Social History Smoking Status: Current every day smoker Cigarettes Per Day: 2; Second Hand Exposure: No; Hx Alcohol Use: No Hx Substance Use: No Preferred Language: [place] Communication Ability: Effective Brass Polisher Required: No Beliefs That Will Affect Care: None Current Living Situation: Alone Feels Safe at Home: Yes Assistive Devices: Walker Review of Systems A total of 10 systems reviewed and were otherwise negative Physical Exam Vital Signs Vital Signs - 24 hr 07/24/22 21:59 07/24/22 21:59 07/24/22 21:59 Temperature 37.2 C Temperature Source Oral Pulse Rate 97 H 97 H Pulse Rate [Apical] Pulse Rhythm Pulse Rhythm [Apical] Pulse Strength Pulse Strength [Apical] Respiratory Rate 20 Respiratory Effort / Characteristics Non-Labored Respiratory Depth Normal Respiratory Pattern Blood Pressure 145/67 H Blood Pressure [Right Arm] Blood Pressure Mean 93 Blood Pressure Mean [Right Arm] Blood Pressure Position Blood Pressure Position [Right Arm] Pulse Oximetry 100 97 Oxygen Delivery Method Room Air Room Air Room Air Sepsis Recent Fever Within 48 Hours No Sepsis New/Unexplained Change in Mental Status No Sepsis Action Taken by Nursing No Action Required 07/24/22 21:59 07/24/22 21:57 07/24/22 23:27 Temperature 37.3 C 36.4 C L Temperature Source Oral Oral Pulse Rate 90 87 Pulse Rate [Apical] 97 H Pulse Rhythm Pulse Rhythm [Apical] Pulse Strength Pulse Strength [Apical] Respiratory Rate 20 18 Respiratory Effort / Characteristics Respiratory Depth Respiratory Pattern Blood Pressure 119/57 L Blood Pressure [Right Arm] 145/67 H Blood Pressure Mean 77 Blood Pressure Mean [Right Arm] 93 Blood Pressure Position Blood Pressure Position [Right Arm] Pulse Oximetry 97 98 Oxygen Delivery Method Room Air Sepsis Recent Fever Within 48 Hours Sepsis New/Unexplained Change in Mental Status Sepsis Action Taken by Nursing 07/24/22 23:43 07/24/22 23:46 07/25/22 00:01 Temperature 36.9 C 36.8 C Temperature Source Oral Oral Pulse Rate 83 83 Pulse Rate [Apical] Pulse Rhythm Regular Regular Pulse Rhythm [Apical] Pulse Strength Normal Normal Pulse Strength [Apical] Respiratory Rate 18 16 18 Respiratory Effort / Characteristics Respiratory Depth Respiratory Pattern Blood Pressure 127/60 131/65 Blood Pressure [Right Arm] Blood Pressure Mean 82 87 Blood Pressure Mean [Right Arm] Blood Pressure Position Lying Lying Blood Pressure Position [Right Arm] Pulse Oximetry 99 99 Oxygen Delivery Method Sepsis Recent Fever Within 48 Hours Sepsis New/Unexplained Change in Mental Status Sepsis Action Taken by Nursing 07/25/22 00:31 07/25/22 00:26 Temperature 36.8 C 36.8 C Temperature Source Oral Oral Pulse Rate 83 Pulse Rate [Apical] 79 Pulse Rhythm Regular Pulse Rhythm [Apical] Regular Pulse Strength Normal Pulse Strength [Apical] Normal Respiratory Rate 18 18 Respiratory Effort / Characteristics Non-Labored Spontaneous Respiratory Depth Normal Respiratory Pattern Regular Blood Pressure 129/62 Blood Pressure [Right Arm] 138/62 Blood Pressure Mean 84 Blood Pressure Mean [Right Arm] 87 Blood Pressure Position Lying Blood Pressure Position [Right Arm] Lying Pulse Oximetry 97 96 Oxygen Delivery Method Room Air Sepsis Recent Fever Within 48 Hours Sepsis New/Unexplained Change in Mental Status Sepsis Action Taken by Nursing VITALS: Vitals are noted on the nurse's note and reviewed by myself. Vital signs stable. GENERAL: Pleasant female, in no acute distress, nondiaphoretic, well-developed well-nourished. SKIN: The skin was without rashes, erythema, edema, or bruising. There is no tenting of the skin. Capillary reflex less than 2 seconds. HEAD: Normocephalic atraumatic. EARS: External auditory canals clear, EYES: Pupils equal round and reactive to light and accommodation. Conjunctivae without injection, sclerae without icterus. Extraocular movements intact. NOSE: Patent, turbinates without inflammation or discharge. MOUTH: Mucous membranes moist. Pharynx without erythema or exudate. Uvula midline. Airway patent. Tongue does not deviate. NECK: Supple without nuchal rigidity. No lymphadenopathy. No thyromegaly. Cervical spine is nontender. No JVD. HEART: Regular rate and rhythm LUNGS: Clear to auscultation bilaterally without wheezes, rales or rhonchi. No retractions or accessory muscle use. ABDOMEN: Positive bowel sounds x 4. Normal tympanic percussion. Soft, mild epigastric tenderness, without masses or organomegaly. Vargas sign negative. No guarding or rebound tenderness. No CVA tenderness Rectal exam: Dark stool guaiac positive. Nurse mapping pilot present MUSCULOSKELETAL: No muscle atrophy, erythema, or edema noted. NEURO: Patient was alert and oriented to person place and time. Normal sensation to light and sharp touch. No focal neurological deficits. Course Administered Medications Discontinued Medications Sodium Chloride (Nss) 500 mls @ 999 mls/hr IV .Q31M STA Stop: 07/24/22 22:24 Last Infusion: 07/24/22 23:03 Dose: 0 mls/hr Documented By: Admin: 07/24/22 22:09 Dose: 999 mls/hr Documented By: KT Acetaminophen (Ofirmev) 1,000 mg in 100 mls @ 400 mls/hr IV NOW STA Stop: 07/24/22 22:08 Last Infusion: 07/24/22 22:35 Dose: 0 mls/hr Documented By: Admin: 07/24/22 22:16 Dose: 400 mls/hr Documented By: KT Pantoprazole Sodium 80 mg/ (Dextrose) 100 mls @ 400 mls/hr IV ONE STA Stop: 07/24/22 22:23 Last Infusion: 07/24/22 23:02 Dose: 0 mls/hr Documented By: Admin: 07/24/22 22:35 Dose: 400 mls/hr Documented By: RAMESH Famotidine (Pepcid 20mg Iv Push) 20 mg in 5 mls @ 2.5 mls/min IV NOW STA Stop: 07/24/22 22:10 Last Admin: 07/24/22 22:16 Dose: 2.5 mls/min Documented By: RAMESH Ioversol (Optiray 320 500ml) 125 ml IV ONCE ONE Stop: 07/24/22 23:18 Last Admin: 07/24/22 23:18 Dose: 115 ml Documented By: CORAZON Ondansetron HCl (Ondansetron Inj 2 Mg/Ml 2 Ml Vial) 4 mg IV NOW STA Stop: 07/24/22 22:10 Last Admin: 07/24/22 22:16 Dose: 4 mg Documented By: RAMESH Critical Care Time Critical Care Time: Yes Total Critical Care Time: 35 I have personally spent 35 minutes of critical care time in the direct management of this patient. This includes bedside care, interpretation of diagnostic studies, and testing, discussion with consultants, patient, and family members, and other required patient management activities. This 35 minutes is in excess of all separately billable procedures. Medical Decision Making Medical Records Attestation: I reviewed the patient's medical records. Home Medications Current Medication List: was personally reviewed by me Laboratory Data Attestation: I reviewed the patient's lab results. 07/24/22 22:00 07/24/22 22:00 Lab Results 07/24/22 07/24/22 07/24/22 Range/Units 22:00 22:00 22:00 WBC 11.41 H (4.8-10.8) K/ul RBC 1.81 L (4.20-5.40) M/uL Hgb 5.8 L* (12.0-16.0) g/dl POC Hgb 6.5 L* (12.0-16.0) g/dl Hct 18.3 L* (37.0-47.0) % POC Hct 19 L* (37-47) % MCV 101.1 H (80.0-100.0) fL MCH 32.0 (25.0-34.0) pg MCHC 31.7 L (32.0-36.0) g/dL RDW Std Deviation 57.1 H (36.4-46.3) fL RDW Coeff of Marcelino 16.1 H (11.5-14.5) % Plt Count 473 H (130-400) K/uL MPV 10.0 (9.4-12.4) fL Immature Gran % (Auto) 0.7 % Neut % (Auto) 69.6 % Lymph % (Auto) 19.6 % [place] % (Auto) 7.2 % Eos % (Auto) 2.2 % Baso % (Auto) 0.7 % Neut # (Auto) 7.94 H (1.40-6.50) K/uL Lymph # (Auto) 2.24 (1.2-3.4) K/uL [place] # (Auto) 0.82 H (0.11-0.59) K/uL Eos # (Auto) 0.25 (0-0.50) K/uL Baso # (Auto) 0.08 (0-0.2) K/uL Immature Gran # (Auto) 0.08 (0.01-0.20) K/uL Hypochromasia Present POC Sodium 141 (135-144) mmol/L Sodium 140 (136-145) mmol/L POC Potassium 3.5 (3.3-5.0) mmol/L Potassium 3.5 (3.5-5.1) mmol/L POC Chloride 104 (101-112) mmol/L Chloride 106 (98-107) mmol/L Carbon Dioxide 25 (21-32) mmol/L POC Total CO2 23 L (24-31) mmol/L Anion Gap 9 (3-11) POC Anion Gap 18.0 (16-25) mmol/L POC BUN 23 H (7-18) mg/dl BUN 25 H (6-23) mg/dl Creatinine 1.23 H (0.6-1.2) mg/dl POC Creatinine 1.4 H (0.6-1.3) mg/dl Est Cr Clr Drug Dosing 35.8 ml/min Est GFR ( Amer) 52.9 ml/min Est GFR (Non-Af Amer) 45.7 ml/min BUN/Creatinine Ratio 20.3 H (10-20) Glucose 109 H (70-99(Fasting)) mg/dl POC Glucose (other) 110 H (70-99) mg/dl Calcium 8.8 (8.5-10.1) mg/dl POC Ioniz Calcium Noy 1.16 (1.12-1.32) mmol/l Total Bilirubin 0.3 (0.2-1.0) mg/dl AST 9 L (13-39) U/L ALT 3 L (7-52) U/L Alkaline Phosphatase 97 (34-104) U/L Total Creatine Kinase 33 (26-192) U/L Troponin I High Sens 5.3 (0-14) pg/ml Total Protein 7.7 (6.0-8.3) gm/dl Albumin 3.8 (3.4-5.0) gm/dl Globulin 3.9 (2.5-4.0) gm/dl Albumin/Globulin Ratio 1.0 (0.9-2) Lipase 38 (11-82) U/L SARS-CoV-2, RNA, NAAT (NEGATIVE) Blood Type Antibody Screen Crossmatch 07/24/22 07/24/22 07/24/22 Range/Units 22:22 22:54 23:57 WBC (4.8-10.8) K/ul RBC (4.20-5.40) M/uL Hgb (12.0-16.0) g/dl POC Hgb (12.0-16.0) g/dl Hct (37.0-47.0) % POC Hct (37-47) % MCV (80.0-100.0) fL MCH (25.0-34.0) pg MCHC (32.0-36.0) g/dL RDW Std Deviation (36.4-46.3) fL RDW Coeff of Marcelino (11.5-14.5) % Plt Count (130-400) K/uL MPV (9.4-12.4) fL Immature Gran % (Auto) % Neut % (Auto) % Lymph % (Auto) % [place] % (Auto) % Eos % (Auto) % Baso % (Auto) % Neut # (Auto) (1.40-6.50) K/uL Lymph # (Auto) (1.2-3.4) K/uL [place] # (Auto) (0.11-0.59) K/uL Eos # (Auto) (0-0.50) K/uL Baso # (Auto) (0-0.2) K/uL Immature Gran # (Auto) (0.01-0.20) K/uL Hypochromasia POC Sodium (135-144) mmol/L Sodium (136-145) mmol/L POC Potassium (3.3-5.0) mmol/L Potassium (3.5-5.1) mmol/L POC Chloride (101-112) mmol/L Chloride (98-107) mmol/L Carbon Dioxide (21-32) mmol/L POC Total CO2 (24-31) mmol/L Anion Gap (3-11) POC Anion Gap (16-25) mmol/L POC BUN (7-18) mg/dl BUN (6-23) mg/dl Creatinine (0.6-1.2) mg/dl POC Creatinine (0.6-1.3) mg/dl Est Cr Clr Drug Dosing ml/min Est GFR ( Amer) ml/min Est GFR (Non-Af Amer) ml/min BUN/Creatinine Ratio (10-20) Glucose (70-99(Fasting)) mg/dl POC Glucose (other) (70-99) mg/dl Calcium (8.5-10.1) mg/dl POC Ioniz Calcium Noy (1.12-1.32) mmol/l Total Bilirubin (0.2-1.0) mg/dl AST (13-39) U/L ALT (7-52) U/L Alkaline Phosphatase (34-104) U/L Total Creatine Kinase (26-192) U/L Troponin I High Sens 5.8 (0-14) pg/ml Total Protein (6.0-8.3) gm/dl Albumin (3.4-5.0) gm/dl Globulin (2.5-4.0) gm/dl Albumin/Globulin Ratio (0.9-2) Lipase (11-82) U/L SARS-CoV-2, RNA, NAAT NEGATIVE (NEGATIVE) Blood Type A Positive Antibody Screen NEGATIVE Crossmatch See Detail Imaging Data Attestation: I personally reviewed and interpreted this imaging study as follows: Radiologist's Impression: Chest CTA 07/24/22 21:56 Exam(s): CTA CHEST IV Amt: 115 ML OPTIRAY 320 EXAM: CT Angiography Chest With Intravenous Contrast CLINICAL HISTORY: Reason for exam: Chest Pain, eval for PE. TECHNIQUE: Axial computed tomographic angiography images of the chest with intravenous contrast. CTDI is 7.05 mGy and DLP is 247.57 mGy-cm. Automated exposure control was utilized for the study. A dose lowering technique was utilized adhering to the principles of ALARA. MIP reconstructed images were created and reviewed. COMPARISON: No relevant prior studies available. FINDINGS: Pulmonary arteries: Unremarkable. No pulmonary embolism. Aorta: No acute findings. No thoracic aortic aneurysm. Lungs: There is moderate paraseptal emphysema. No mass. Pleural space: Unremarkable. No significant effusion. No pneumothorax. Heart: There are coronary vascular calcifications. No significant pericardial effusion. No evidence of RV dysfunction. Bones/joints: No acute fracture. No dislocation. Soft tissues: Unremarkable. Lymph nodes: Unremarkable. No enlarged lymph nodes. Other findings: Please see the dedicated interpretation of the abdomen for full intra-abdominal findings. IMPRESSION: No acute findings in the visualized arteries of the chest. Electronically signed by: Ricardo Martin MD 07/24/22 23:34 PM Abdomen/Pelvis CT 07/24/22 22:09 Exam(s): CT ABDOMEN + PELVIS With Contrast IV Amt: 115 ML OPTIRAY 320 EXAM: CT Abdomen and Pelvis With Intravenous Contrast CLINICAL HISTORY: Reason for exam: gi bleed, pain. TECHNIQUE: Axial computed tomography images of the abdomen and pelvis with intravenous contrast. CTDI is 5.98 mGy and DLP is 266.88 mGy-cm. Automated exposure control was utilized for the study. A dose lowering technique was utilized adhering to the principles of ALARA. CONTRAST: Patient received 115 ML OPTIRAY 320 of IV contrast COMPARISON: No relevant prior studies available. FINDINGS: Lung bases: Unremarkable. No mass. No consolidation. ABDOMEN: Liver: Unremarkable. No mass. Gallbladder and bile ducts: Unremarkable. No calcified stones. No ductal dilation. Pancreas: There is moderate inflammatory change within the region of the pancreatic head and neck (image 27 series 5). No ductal dilation. Spleen: Unremarkable. No splenomegaly. Adrenals: Unremarkable. No mass. Kidneys and ureters: Unremarkable. No solid mass. No hydronephrosis. Stomach and bowel: Unremarkable. No obstruction. No mucosal thickening. PELVIS: Appendix: No findings to suggest acute appendicitis. Bladder: Unremarkable. No mass. Reproductive: Unremarkable as visualized. ABDOMEN and PELVIS: Intraperitoneal space: Unremarkable. No free air. No significant fluid collection. Bones/joints: Old surgical repair of the right femur. Diffuse osseous demineralization. Degenerative changes of the thoracolumbar spine. Please see the dedicated interpretation of the thorax for intrathoracic findings. No acute fracture. No dislocation. Soft tissues: Postsurgical changes of the ventral abdominal wall. Vasculature: There is diffuse atherosclerotic calcification of the aorta and its major branch vessels. No abdominal aortic aneurysm. Lymph nodes: Unremarkable. No enlarged lymph nodes. IMPRESSION: Inflammatory change adjacent to the pancreatic head and neck as well as the second portion of the duodenum. Findings could reflect acute pancreatitis versus duodenal ulcer disease and correlation with lipase level is recommended. Electronically signed by: Ricardo Martin MD 07/24/22 23:33 PM [facility] Narrative Prior records/ancillary studies reviewed. Triage Nursing notes reviewed. Additional history obtained from the nursing. The patient's history was concerning for possible gastrointestinal bleeding. Differential diagnosis: Etiologies such as diverticulosis, AVM, coagulopathy, colitis, inflammatory bowel disease, malignancy, Nadia-Lovell tear, esophagitis, peptic ulcer disease, variceal bleed, gastritis, epistaxis, fissure, hemorrhoids, as well as others were entertained. Physical exam: As above. The patients vital signs were stable. ER treatment provided: An order was placed for continuous cardiac monitoring. The monitor shows a rate of 60-100 with a sinus rhythm per my interpretation. Protonix Pepcid and Zofran IV fluids were ordered I-STAT was ordered Tylenol was given Patient was consented for blood transfusion and was given 2 units On reassessment the patient felt better. Diagnostics interpreted by me: ECG: Ordered for chest pain EKG: Normal sinus, normal intervals, no acute ST-T wave changes. Impression normal sinus rhythm with septal infarct interpreted by myself I think arrhythmia is unlikely. EKG shows normal sinus rhythm with no interval abnormalities such as QT prolongation or WPW. There are no findings to suggest Brugada syndrome. Cardiac monitoring in the emergency department reveals no tachycardic or bradycardic dysrhythmia. Hypertrophic cardiomyopathy was considered but there are no clear historical elements pointing toward this. EKG is not suggestive. The QRS voltage is not extremely large The labs Independently Interpreted by myself revealed severe anemia. Normal lipase. I-STAT shows severe anemia which is new. Patient is typed and crossmatched for 2. She was consented. Imaging studies: Chest x-ray with no acute consolidation, pneumothorax or free air per my independent interpretation. CTA was negative for PE. Per my independent interpretation HEART SCORE: Hx: high/mod/low suspicion: 0 ECG: ST depression/nonspecific changes/normal: 0 Age: Greater than 65/45-64/less than 45: 2 Risk factors: (Hypertension, hyperlipidemia, diabetes, coronary disease, tobacco use, cocaine use): 2 Troponin: Greater than 2 times normal limits/1-2 times normal limits/normal: 0 Total: 4 Consultation: A consultation was placed with the hospitalist. The case was discussed and diagnostics were reviewed. The patient was evaluated in the ER for further treatment. This appears to be consistent with acute GI bleed with chest pain. Labs and diagnostics were independent interpreted by myself. Patient was medicated as above. She was typed and crossmatched for 2 units. Medicine is consulted. She will be evaluated for admission. Patient is agreeable. Normal lipase. No clinical signs of pancreatitis on exam. By the evaluation outlined above emergent etiologies such as esophageal perforation, variceal bleed, coagulopathy, epistaxis, inflammatory bowel disease, as well as others were deemed relatively unlikely. The pt informed about the findings as listed above. All questions were answered and pleased with the treatment. The chart was completed utilizing [employer] Speech voice recognition software. Grammatical errors, random word insertions, pronoun errors, and incomplete sentences are an occassional consequence of this system due to software limitations, ambient noise, and hardware issues. Any formal questions or concerns about the content, text, or information contained within the body of this dictation should be directly addressed to the physician optometric assistant for clarification. Impression & Plan Acute GI bleeding, Chest pain, Anemia Discharge Plan Visit Data Chief Complaint: Chest Pain Stated Complaint: CHEST PAIN ED Provider: Francisco Scales ED Midlevel Provider: Nelli Martin Discharge Problem: Acute GI bleeding, Chest pain, Anemia Patient Disposition: Admitted As Inpatient Condition: Good Forms Stand Alone Forms: [employer] Prescriptions Prescriptions: No Action valacyclovir 500 mg tablet 500 mg PO AMPM omeprazole 20 mg capsule,delayed release(DR/EC) 20 mg PO DAILYBB dicyclomine 10 mg capsule 10 mg PO QID PRN (Reason: .Abd cramping) multivitamin with folic acid [Daily-Violet (with folic acid)] 400 mcg Tablet 1 tab PO QAM Qty: 30 0RF morphine 15 mg tablet 7.5 mg PO Q6H PRN (Reason: pain) Qty: 7 0RF aspirin 325 mg capsule 325 mg PO DAILY Qty: 30 0RF Referrals Referrals: Ludwig Garcia DO [Primary Care Provider] -
[2022-07-24 22:48] LABS: Albumin Level 3.8 gm/dl (3.4-5.0); BUN Creatinine Ratio 20.3 (10-20); Basophils # (auto) 0.08 K/uL (0-0.2); Basophils % (auto) 0.7 %; Bilirubin,Total 0.3 mg/dl (0.2-1.0); Calcium 8.8 mg/dl (8.5-10.1); Creatinine Clr Calc Pharmacy 35.8 ml/min; Eosinophils # (auto) 0.25 K/uL (0-0.50); Eosinophils % (auto) 2.2 %; Est GFR (African American) 52.9 ml/min; Est GFR (Non-African American) 45.7 ml/min; Globulin 3.9 gm/dl (2.5-4.0); Hematocrit (blood only) 18.3 % (37.0-47.0); Hemoglobin 5.8 g/dl (12.0-16.0); Hypochromasia Present; Immature Granulocytes # (auto) 0.08 K/uL (0.01-0.20); Immature Granulocytes % (auto) 0.7 %; Lymphocytes # (auto) 2.24 K/uL (1.2-3.4); Lymphocytes % (auto) 19.6 %; Mean Corpuscular Hgb Conc 31.7 g/dL (32.0-36.0); Mean Corpuscular Volume 101.1 fL (80.0-100.0); Monocytes # (auto) 0.82 K/uL (0.11-0.59); Monocytes % (auto) 7.2 %; Neutrophils # (auto) 7.94 K/uL (1.40-6.50); Neutrophils % (auto) 69.6 %; Platelet Count 473 K/uL (130-400); Potassium 3.5 mmol/L (3.5-5.1); RDW Coefficient of Variation 16.1 % (11.5-14.5); RDW Standard Deviation 57.1 fL (36.4-46.3); Red Blood Count 1.81 M/uL (4.20-5.40); Total Protein 7.7 gm/dl (6.0-8.3); White Blood Count 11.41 K/ul (4.8-10.8)
[2022-07-24 22:54] LABS: Troponin I High Sensitivity 5.3 pg/ml (0-14)
[2022-07-24] MEDS ORDERED: OPTIRAY 320 500ml IV ONE (23:17)
--- NOTE | 2022-07-24 23:34 | CT Scan Report ---
Exam(s): CT ABDOMEN + PELVIS With Contrast IV Amt: 115 ML OPTIRAY 320 EXAM: CT Abdomen and Pelvis With Intravenous Contrast CLINICAL HISTORY: Reason for exam: gi bleed, pain. TECHNIQUE: Axial computed tomography images of the abdomen and pelvis with intravenous contrast. CTDI is 5.98 mGy and DLP is 266.88 mGy-cm. Automated exposure control was utilized for the study. A dose lowering technique was utilized adhering to the principles of ALARA. CONTRAST: Patient received 115 ML OPTIRAY 320 of IV contrast COMPARISON: No relevant prior studies available. FINDINGS: Lung bases: Unremarkable. No mass. No consolidation. ABDOMEN: Liver: Unremarkable. No mass. Gallbladder and bile ducts: Unremarkable. No calcified stones. No ductal dilation. Pancreas: There is moderate inflammatory change within the region of the pancreatic head and neck (image 27 series 5). No ductal dilation. Spleen: Unremarkable. No splenomegaly. Adrenals: Unremarkable. No mass. Kidneys and ureters: Unremarkable. No solid mass. No hydronephrosis. Stomach and bowel: Unremarkable. No obstruction. No mucosal thickening. PELVIS: Appendix: No findings to suggest acute appendicitis. Bladder: Unremarkable. No mass. Reproductive: Unremarkable as visualized. ABDOMEN and PELVIS: Intraperitoneal space: Unremarkable. No free air. No significant fluid collection. Bones/joints: Old surgical repair of the right femur. Diffuse osseous demineralization. Degenerative changes of the thoracolumbar spine. Please see the dedicated interpretation of the thorax for intrathoracic findings. No acute fracture. No dislocation. Soft tissues: Postsurgical changes of the ventral abdominal wall. Vasculature: There is diffuse atherosclerotic calcification of the aorta and its major branch vessels. No abdominal aortic aneurysm. Lymph nodes: Unremarkable. No enlarged lymph nodes. IMPRESSION: Inflammatory change adjacent to the pancreatic head and neck as well as the second portion of the duodenum. Findings could reflect acute pancreatitis versus duodenal ulcer disease and correlation with lipase level is recommended. Electronically signed by: Ricardo Martin MD 07/24/22 23:33 PM
--- NOTE | 2022-07-24 23:36 | CT Scan Report ---
Exam(s): CTA CHEST IV Amt: 115 ML OPTIRAY 320 EXAM: CT Angiography Chest With Intravenous Contrast CLINICAL HISTORY: Reason for exam: Chest Pain, eval for PE. TECHNIQUE: Axial computed tomographic angiography images of the chest with intravenous contrast. CTDI is 7.05 mGy and DLP is 247.57 mGy-cm. Automated exposure control was utilized for the study. A dose lowering technique was utilized adhering to the principles of ALARA. MIP reconstructed images were created and reviewed. COMPARISON: No relevant prior studies available. FINDINGS: Pulmonary arteries: Unremarkable. No pulmonary embolism. Aorta: No acute findings. No thoracic aortic aneurysm. Lungs: There is moderate paraseptal emphysema. No mass. Pleural space: Unremarkable. No significant effusion. No pneumothorax. Heart: There are coronary vascular calcifications. No significant pericardial effusion. No evidence of RV dysfunction. Bones/joints: No acute fracture. No dislocation. Soft tissues: Unremarkable. Lymph nodes: Unremarkable. No enlarged lymph nodes. Other findings: Please see the dedicated interpretation of the abdomen for full intra-abdominal findings. IMPRESSION: No acute findings in the visualized arteries of the chest. Electronically signed by: Ricardo Martin MD 07/24/22 23:34 PM
[2022-07-25] MEDS ORDERED: PANTOprazole 80 MG in DEXTROSE 5% 100 ML IV ONE (02:34)
[2022-07-25] MEDS ORDERED: SODIUM CHLORIDE 0.9% 250 ML IV PRN (02:34)
[2022-07-25] MEDS ORDERED: PANTOPRAZOLE BOLUS/DRIP 1 EACH IV STA (02:34)
[2022-07-25] MEDS ORDERED: ONDANSETRON INJ 2 MG/ML 2 ML VIAL IV PRN (02:34)
[2022-07-25] MEDS ORDERED: NITROGLYCERIN SL 0.4 MG/TAB TAB SL PRN (02:34)
[2022-07-25] MEDS: SODIUM CHLORIDE 0.9% 1000ML 1,000 ML IV SCH ×3 (03:25→15:08)
[2022-07-25] MEDS: PANTOprazole 40 MG in DEXTROSE 5% 100 ML IV SCH ×5 (03:28→22:51)
[2022-07-25] MEDS: valACYclovir HCL 500 MG TABLET PO SCH ×3 (03:29→20:40)
--- NOTE | 2022-07-25 03:42 | History and Physical Report ---
DATE OF ADMISSION: 07/24/2022. CHIEF COMPLAINT: Chest pain and also has melena. 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 The patient is having chest pain, abdominal pain, heartburn, nausea going for 2-3 weeks. Chest pain is on and off, but lately getting more constant. No aggravating or alleviating factors. She also noticed some black stools. No hematuria, but not making much urine. Appetite is down. Denies any fevers. No cough. Pounding of heart feeling in the ears. Runny nose is better. No sore throat. No difficulty swallowing. Has some headache. Vision is okay. Denies any fevers. In the ER, the labs showed hemoglobin of 5.8. The patient was here in May with right hip pain at that time showed right hip femoral fracture, nondisplaced, status post right hip hardware removal and long cephalomedullary nailing of periprosthetic intertrochanteric femur fracture done. She was on aspirin for DVT prophylaxis . Currently not taking aspirin per the patient, but she is still taking diclofenac sodium for back pain, states she has been not taking much for the last 2 weeks because she thought her symptoms could be from it, but last dose was 3 days ago. She states a few days back when she moved her bowels and came back, she felt dizzy, sweaty and had one episode of vomiting. Currently alert and oriented, hemodynamically stable. ALLERGIES: TO BENZODIAZEPINES, CHLORDIAZEPOXIDE, CLIDINIUM, GABAPENTIN, HYDROCODONE, OXYCODONE, BELLADONNA ALKALOIDS, YELLOW DYE, RISEDRONATE, TRAMADOL, METHSCOPOLAMINE. PAST MEDICAL HISTORY: As mentioned above. PAST SURGICAL HISTORY: Chemotherapy, colonoscopy, lumbar kyphoplasty in 12/2021, Pap screens, radiation treatment, removal of ovaries, revision of hip bone, total hysterectomy. MEDICATIONS: The patient is on Tylenol Rapid Release 500 mg p.o. t.i.d. p.r.n., aspirin, diclofenac sodium 75 mg p.o. b.i.d., dicyclomine 10 mg p.o. q.i.d. p.r.n., omeprazole 20 mg p.o. daily, Valacyclovir 500 mg p.o. b.i.d. FAMILY HISTORY: Significant for mother had lung cancer; father of [place]. SOCIAL HISTORY: , lives alone, ambulates with a walker. Smokes quarter pack a day for the last 45 years. No alcohol, no drug use. REVIEW OF SYSTEMS: As per HPI. Rest of the review of systems is negative. PHYSICAL EXAMINATION: GENERAL: The patient is of moderate build, not in acute distress. VITAL SIGNS: Temperature 36.8, pulse 83, respiratory rate 18, blood pressure 129/62, oxygen 97% on room air. HEENT: Pupils equal, round and reactive to light. Oral mucosa dry. NECK: No JVD or neck masses. CARDIOVASCULAR: S1 and S2 heard. Regular rate and rhythm. No murmur, no gallop. RESPIRATORY SYSTEM: Normal AP diameter. No accessory muscle use. No wheezing, no crackles. ABDOMEN: Soft, bowel sounds present, nontender, no distention. CENTRAL NERVOUS SYSTEM: Alert and oriented. Speech is clear. No facial droop. Insight is okay. Obeys simple commands. Moves extremities. EXTREMITIES: No edema, no erythema. LABORATORY DATA: WBC 11.4, hemoglobin 5.8, hematocrit 18.3, platelets 473. Sodium 140, potassium 3.5, chloride 106, CO2 25, BUN 25, creatinine 1.2 serum glucose 109, calcium 8.8, total bilirubin 0.3, AST 9, ALT 30, alkaline phosphatase 97, total creatine kinase 33. Troponin I high sensitivity 5.8. Lipase 38. SARS-CoV-2 rapid test negative. IMAGING DATA: CT abdomen and pelvis with IV contrast: Inflammatory changes adjacent to the pancreatic head and neck as well as second portion of duodenum. Findings could reflect acute pancreatitis versus duodenal ulcer disease and correlation with lipase level as recommended. CTA chest, no PE, no acute findings. Chest x-ray, no acute findings. ASSESSMENT AND PLAN: This is a 66-year-old female who presents with melena, anemia, chest pain. 1. Melena, anemia, hemoglobin of 5.8. The patient is on diclofenac sodium could be the possible cause. History of smoking. ER ordered PRBC. We will give total of 2 units of PRBCs. Started on Protonix drip. Follow H and H q.6 hours, n.p.o., IV fluids, IV antiemetics. Consult GI. Closely monitor in the tele floor. 2. Chest pain, most likely GI related. Troponin is unremarkable. Follow the repeat EKG and troponins, echocardiogram. Consult Cardiology in the a.m. Monitor in the tele floor. 3. Acute kidney injury. Creatinine of 1.2. Follow the repeat labs secondary to above. 4. Pancreatitis vs duodenal ulcer disease on ct scan. Lipase ok. On PPI drip. Await GI inputs. 4. Deep venous thrombosis prophylaxis: SCDs. DISPOSITION: Closely monitor in the tele floor. Level 1 full code. Expect to discharge home and follow with family doctor. Job ID: [id number] RAAD
[2022-07-25 07:41] LABS: Basophils # (auto) 0.07 K/uL (0-0.2); Basophils % (auto) 0.7 %; Eosinophils # (auto) 0.28 K/uL (0-0.50); Eosinophils % (auto) 2.8 %; Hematocrit (blood only) 25.5 % (37.0-47.0); Hemoglobin 8.6 g/dl (12.0-16.0); Immature Granulocytes # (auto) 0.06 K/uL (0.01-0.20); Immature Granulocytes % (auto) 0.6 %; Lymphocytes # (auto) 2.51 K/uL (1.2-3.4); Lymphocytes % (auto) 24.8 %; Mean Corpuscular Hemoglobin 32.2 pg (25.0-34.0); Mean Corpuscular Hgb Conc 33.7 g/dL (32.0-36.0); Mean Corpuscular Volume 95.5 fL (80.0-100.0); Mean Platelet Volume 9.7 fL (9.4-12.4); Monocytes # (auto) 0.92 K/uL (0.11-0.59); Monocytes % (auto) 9.1 %; Platelet Count 327 K/uL (130-400); RDW Standard Deviation 57.5 fL (36.4-46.3); Red Blood Count 2.67 M/uL (4.20-5.40); White Blood Count 10.14 K/ul (4.8-10.8)
--- NOTE | 2022-07-25 07:50 | XRay Report ---
SINGLE VIEW CHEST CLINICAL HISTORY: Atypical chest pain FINDINGS: An AP, portable, upright chest radiograph is compared to study dated 05/11/2022. The cardiome diastinal silhouette is unremarkable noting atherosclerotic calcification of the thoracic aorta. Emph ysema and chronic interstitial thickening is similar to previous. No airspace consolidation or large pleural effusion is identified. Apical scarring is observed. No pneumothorax is seen. The skeletal st ructures are osteopenic. The bony thorax is grossly intact. IMPRESSION: Emphysematous change with no active disease in the chest. ACT 112: Negative or not required by law. Electronically signed by: Tee Pimentel M.D. 07/25/2022 7:49 AM
[2022-07-25 07:52] LABS: BUN Creatinine Ratio 18.8 (10-20); Calcium 7.6 mg/dl (8.5-10.1); Creatinine Clr Calc Pharmacy 46.3 ml/min; Est GFR (African American) 71.4 ml/min; Est GFR (Non-African American) 61.6 ml/min; Magnesium 1.9 mg/dl (1.7-2.4); Potassium 3.6 mmol/L (3.5-5.1)
[2022-07-25 07:59] LABS: Troponin I High Sensitivity 6.5 pg/ml (0-14)
--- NOTE | 2022-07-25 08:46 | Gastrointestinal Consultation ---
Date of Consultation July 25, 2022 Assessment & Plan (1) Anemia: (2) Melena: Pt is a 66 yo female w symptoms of CP, abd pain, nausea, heartburn, melena noted to be anemic on presentation. Normal EKG, Troponin, and CT chest. Hgb 5 -> [address] abd/pelvis w inflammatory changes in pancreas/duodenum. She was recently taking ASA 325mg daily x 4 weeks for DVT prophylaxis after R hip fracture repair and intermittently taking Diclofenac. Suspect PUD. - Keep NPO - PPI gtt - EGD eval by Dr. Gil today - GI will give further recs after EGD completed - Monitor blood ct and transfuse prn - Avoid high dose ASA and NSAIDs Supervising Physician Co-Signing Physician Notes I personally saw and evaluated the patient on 07/25/2022 with HOLLY Prieto. I agree with her findings nad plan of care. 66 y/o F with recent hip fracture repair now presenting with melena, anemia, and chest pain. Was taking Asa 325 mg daily as well as NSAIDs intermittently. hgb 5.8 on admission from baseline of 10-11. Reports melena but no hematemesis or hematochezia. No history of GI bleeding. On physical exam abdomen is soft, non-tender, non-distended. Will proceed with EGD today for further evaluation. Concern for PUD. Avoid NSAI Ds. Continue PPI gtt. Wendy Gil DO Gastroenterology and Hepatology History of Present Illness Reason for Consultation: Melena, Anemia Requesting Physician: Dr. Giovanni Mcfarlane Attending Physician: Dr. Wendy Gil History of Present Illness Pt is a 66 yo female w PMHx of cervical ca, s/p total hysterectomy, BSO, chemo, XRT, R hip joint repair for mets disease in , HSV, sciatica, SCC of bone, hip, OP, GERD, constipation, recent R hip fracture repair who presented to ED yesterday w co heartburn, nausea, abd pain and CP symptoms. She has associated black tarry stools in the last 2 weeks. She was taking ASA 325mg daily for 4 weeks after her hip fracture repair for DVT prophylaxis, then intermittently takes Diclofenac. On evaluation, noted to have anemia w Hgb of 5. Troponin normal. EKG normal. CT abd/pelvis w signs of inflammatory changes in pancreas or duodenum. Lipase normal. She doesn't have any hx of endoscopy evals. Denies family hx of GI malignancy Denies ETOH, tobacco, marijuana Allergies Allergy/AdvReac Type Severity Reaction Status Date / Time Benzodiazepines Allergy Mild ITCH Verified 07/25/22 00:46 chlordiazepoxide Allergy Mild ITCH Verified 07/25/22 00:46 clidinium Allergy Mild ITCH Verified 07/25/22 00:46 gabapentin Allergy Mild ITCH Verified 07/25/22 00:46 hydrocodone Allergy Mild Itch Verified 07/25/22 00:46 oxycodone Allergy Mild Itch Verified 07/25/22 00:46 tramadol Allergy Mild Itch Verified 07/25/22 02:43 belladonna alkaloids Allergy Unknown ITCHING Verified 07/25/22 00:46 yellow dye Allergy Unknown . Verified 07/25/22 00:46 risedronate sodium Allergy Unknown Verified 07/25/22 00:46 Methscopolamine Allergy Unknown . Uncoded 05/10/22 00:52 Home Medications Medication Instructions Recorded Confirmed Type dicyclomine 10 mg capsule 10 mg PO QID PRN .Abd cramping 05/10/22 07/25/22 History omeprazole 20 mg capsule,delayed 20 mg PO DAILYBB 05/10/22 07/25/22 History release valacyclovir 500 mg tablet 500 mg PO AMPM 05/10/22 07/25/22 History aspirin 325 mg capsule 325 mg PO DAILY #30 caps 05/16/22 07/25/22 Rx acetaminophen 500 mg tablet 500 mg PO TID PRN Pain 07/25/22 07/25/22 History diclofenac sodium 75 mg 75 mg PO BID 07/25/22 07/25/22 History tablet,delayed release Patient History Medical History (Updated 07/25/22 @ 08:54 by Jose Sanchez MD) Ambulatory dysfunction Bone cancer Cervical cancer "1989 - 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 Treated in [place]. Dr Cespedes. Chemo and radiation. R hip pinning " Closed fracture of proximal end of right femur COVID-19 Encounter for pre-operative examination HTN (hypertension) Lumbar compression fracture Right hip pain RLS (restless legs syndrome) Vulvar neoplasm Surgical History History of hip surgery History of vertebroplasty Family History Other Cancer Heart disease Social History Smoking Status: Current some day smoker Cigarettes Per Day: 2; Second Hand Exposure: No; Tobacco Cessation Education Requested by Patient: No Hx Alcohol Use: No Hx Substance Use: No Preferred Language: American Communication Ability: Effective [employer] Baseball [employer] Required: No Beliefs That Will Affect Care: None Current Living Situation: Alone Other Information That Helps Us Care for You: No Feels Safe at Home: Yes Safety Concerns: Feels Safe At This Time Assistive Devices: Denture - Upper, Denture - Lower and Glasses Review of Systems Review of Systems: All systems reviewed & are unremarkable except as noted in HPI & below Physical Exam Constitutional: WD/WN, vitals as above well groomed, cooperative and comfortable Eyes: PERRL, conjunctivae normal, anicteric sclerae ENMT: external ear and nose normal, oropharynx normal Respiratory: normal respiratory effort, lungs clear to auscultation Cardiovascular: RRR, no murmur, no edema Gastrointestinal (Abdomen): normal bowel sounds, soft, nontender, no hepatosplenomegaly Skin: no rashes, warm and dry no jaundice Psychiatric: A+Ox3, euthymic affect Lymphatic: no lymphedema Results & Data Vital Signs (Past 12 Hours) Vital Signs Temp Pulse Pulse Pulse Resp BP BP 07/25/22 07:40 36.6 C 74 15 129/61 07/25/22 04:18 78 07/25/22 05:11 36.6 C 73 14 129/61 07/25/22 05:10 36.6 C 74 14 129/61 07/25/22 04:11 36.6 C 71 14 129/69 07/25/22 03:41 36.5 C 73 16 132/70 07/25/22 03:26 36.6 C 79 16 123/69 07/25/22 03:07 36.5 C 73 18 132/66 07/25/22 02:50 79 18 130/63 07/25/22 02:42 07/25/22 02:42 36.3 C L 82 20 07/25/22 02:34 36.3 C L 82 18 07/25/22 00:26 36.8 C 79 18 07/25/22 01:53 36.7 C 75 16 138/62 07/25/22 01:31 36.8 C 75 17 121/65 07/25/22 00:31 36.8 C 83 18 129/62 07/25/22 00:01 36.8 C 83 18 131/65 07/24/22 23:46 83 16 127/60 07/24/22 23:43 36.9 C 18 07/24/22 23:27 36.4 C L 87 18 119/57 L 07/24/22 21:57 90 07/24/22 21:59 37.3 C 97 H 20 07/24/22 21:59 07/24/22 21:59 97 H 07/24/22 21:59 37.2 C 97 H 20 145/67 H BP Pulse Ox O2 Del Method 07/25/22 07:40 96 Room Air 07/25/22 04:18 07/25/22 05:11 94 07/25/22 05:10 94 07/25/22 04:11 94 07/25/22 03:41 95 07/25/22 03:26 96 07/25/22 03:07 99 07/25/22 02:50 98 Room Air 07/25/22 02:42 Room Air 07/25/22 02:42 144/68 H 95 Room Air 07/25/22 02:34 144/68 H Room Air 07/25/22 00:26 138/62 96 Room Air 07/25/22 01:53 98 07/25/22 01:31 97 07/25/22 00:31 97 07/25/22 00:01 99 07/24/22 23:46 99 07/24/22 23:43 07/24/22 23:27 98 07/24/22 21:57 07/24/22 21:59 145/67 H 97 Room Air 07/24/22 21:59 Room Air 07/24/22 21:59 97 Room Air 07/24/22 21:59 100 Room Air
--- NOTE | 2022-07-25 08:50 | Anesthesiology Consultation ---
Date of Service July 25, 2022 Assessment & Plan (1) Encounter for pre-operative examination: Chart Review Chart Review: Acceptable Risk for Surgery and Patient NOT seen in Pre Admission Testing Consults Requested none History Surgery Operation Date: 07/25/22 18:15 Proposed Procedures p Esophagogastroduodenoscopy Jeffery Gil, Height/Weight Height: 5 ft 5 in Weight: 50.9 kg Allergies Allergy/AdvReac Type Severity Reaction Status Date / Time Benzodiazepines Allergy Mild ITCH Verified 07/25/22 00:46 chlordiazepoxide Allergy Mild ITCH Verified 07/25/22 00:46 clidinium Allergy Mild ITCH Verified 07/25/22 00:46 gabapentin Allergy Mild ITCH Verified 07/25/22 00:46 hydrocodone Allergy Mild Itch Verified 07/25/22 00:46 oxycodone Allergy Mild Itch Verified 07/25/22 00:46 tramadol Allergy Mild Itch Verified 07/25/22 02:43 belladonna alkaloids Allergy Unknown ITCHING Verified 07/25/22 00:46 yellow dye Allergy Unknown . Verified 07/25/22 00:46 risedronate sodium Allergy Unknown Verified 07/25/22 00:46 Methscopolamine Allergy Unknown . Uncoded 05/10/22 00:52 Medications Home Medications Medication Instructions Recorded Confirmed Last Taken dicyclomine 10 mg capsule 10 mg PO QID PRN .Abd cramping 05/10/22 07/25/22 Unknown omeprazole 20 mg capsule,delayed 20 mg PO DAILYBB 05/10/22 07/25/22 Unknown release valacyclovir 500 mg tablet 500 mg PO AMPM 05/10/22 07/25/22 Unknown aspirin 325 mg capsule 325 mg PO DAILY #30 caps 05/16/22 07/25/22 07/10/22 acetaminophen 500 mg tablet 500 mg PO TID PRN Pain 07/25/22 07/25/22 Unknown diclofenac sodium 75 mg 75 mg PO BID 07/25/22 07/25/22 07/16/22 tablet,delayed release Active Medications Generic Name Dose Route Start Last Admin Trade Name Freq PRN Reason Stop Dose Admin Sodium Chloride 1,000 mls @ 125 mls/hr 07/25/22 02:34 07/25/22 03:25 Nss 1000ml IV 08/24/22 02:33 125 mls/hr .Q8H SARA Administration Pantoprazole Sodium 40 mg/ 100 mls @ 20 mls/hr 07/25/22 03:00 07/25/22 08:16 Dextrose IV 08/24/22 02:59 8 mg/hr Q5H SARA 20 mls/hr Administration 8 MG/HR Valacyclovir HCl 500 mg 07/25/22 02:34 07/25/22 03:29 Valacyclovir Hcl 500 Mg Tablet PO 08/24/22 02:33 500 mg BID SARA Administration Past Medical History Medical History (Updated 07/25/22 @ 08:54 by Jose Sanchez MD) Ambulatory dysfunction Bone cancer Cervical cancer "1989 - 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 Treated in [place]. Dr Cespedes. Chemo and radiation. R hip pinning " Closed fracture of proximal end of right femur COVID-19 Encounter for pre-operative examination HTN (hypertension) Lumbar compression fracture Right hip pain RLS (restless legs syndrome) Vulvar neoplasm This is a 66-year-old female with past medical history significant for cervical cancer, status post total abdominal hysterectomy with bilateral salpingo- oophorectomy, history of 4 cycles of chemo and also radiation treatment, history of repair of right hip joint for metastatic disease in the early , history of herpes simplex virus infection, chronic right-sided low back pain without sciatica, 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 Past Family History Family History Other Cancer Heart disease Past Surgical History Surgical History History of hip surgery History of vertebroplasty Social History Smoking Status: Current some day smoker tobacco type: cigarettes Smoking cigarettes per day: 2 Hx Alcohol Use: No Hx Substance Use: No substance use type: does not use Physical Exam Vital Signs Last Vital Signs Temp 36.6 C 07/25/22 07:40 Pulse 74 07/25/22 07:40 Resp 15 07/25/22 07:40 BP 129/61 07/25/22 07:40 Pulse Ox 96 07/25/22 07:40 O2 Del Method Room Air 07/25/22 07:40 Testing Laboratory Results 07/25/22 07:18 07/25/22 07:18 Blood Type A Positive 07/24/22 22:22 Antibody Screen NEGATIVE 07/24/22 22:22 07/24/22 22:00 POC Glucose (other) 110 H Electrocardiogram Date: 07/24/22 Findings: + NSR @ (72) Normal sinus rhythm Normal ECG When compared with ECG of 11-MAY-2022 16:48, No significant change was found Chest X-Ray Date: 07/24/22 SINGLE VIEW CHEST CLINICAL HISTORY: Atypical chest pain FINDINGS: An AP, portable, upright chest radiograph is compared to study dated 05/11/2022. The cardiomediastinal silhouette is unremarkable noting atherosclerotic calcification of the thoracic aorta. Emphysema and chronic interstitial thickening is similar to previous. No airspace consolidation or large pleural effusion is identified. Apical scarring is observed. No pneumothorax is seen. The skeletal structures are osteopenic. The bony thorax is grossly intact. IMPRESSION: Emphysematous change with no active disease in the chest. Echocardiogram echo done 07/25/22. see report for full details. Other Testing EXAM: CT Angiography Chest With Intravenous Contrast CLINICAL HISTORY: Reason for exam: Chest Pain, eval for PE. TECHNIQUE: Axial computed tomographic angiography images of the chest with intravenous contrast. CTDI is 7.05 mGy and DLP is 247.57 mGy-cm. Automated exposure control was utilized for the study. A dose lowering technique was utilized adhering to the principles of ALARA. MIP reconstructed images were created and reviewed. COMPARISON: No relevant prior studies available. FINDINGS: Pulmonary arteries: Unremarkable. No pulmonary embolism. Aorta: No acute findings. No thoracic aortic aneurysm. Lungs: There is moderate paraseptal emphysema. No mass. Pleural space: Unremarkable. No significant effusion. No pneumothorax. Heart: There are coronary vascular calcifications. No significant pericardial effusion. No evidence of RV dysfunction. Bones/joints: No acute fracture. No dislocation. Soft tissues: Unremarkable. Lymph nodes: Unremarkable. No enlarged lymph nodes. Other findings: Please see the dedicated interpretation of the abdomen for full intra-abdominal findings. IMPRESSION: No acute findings in the visualized arteries of the chest.
[2022-07-25] MEDS ORDERED: LIDOCAINE 2% MPF LOCAL 5 ML VIAL INFIL ONE (09:52)
[2022-07-25] MEDS ORDERED: PROPOFOL IV EMULSION 10 MG/ML 20 ML VIAL IV ONE (09:52)
--- NOTE | 2022-07-25 10:02 | GI REPORT ---
Patient Name: Sarah Amin Procedure Date: 07/25/2022 9:13 AM Date of : 1955 Admit Type: Inpatient Age: 66 Gender: Female Attending MD: Wendy Gil DO, Procedure: Upper GI endoscopy Providers: Wendy Gil DO Referring MD: Referred Self Indications: Melena Patient Profile: This is a 66 year old female. Refer to note in patient chart for documentation of history and physical. Medicines: Monitored Anesthesia Care Complications: No immediate complications. Estimated Blood Loss: Estimated blood loss: none. Procedure: Pre-Anesthesia Assessment: - Prior to the procedure, a History and Physical was performed, and patient medications and allergies were reviewed. The risks and benefits of the procedure and the sedation options and risks were discussed with the patient. All questions were answered and informed consent was obtained. Patient identification and proposed procedure were verified by the physician, the nurse and the printed circuit boards inspector in the procedure room. Mental Status Examination: alert and oriented. Airway Examination: Mallampati Class II (the uvula but not tonsillar pillars visualized). Respiratory Examination: clear to auscultation. CV Examination: RRR, no murmurs, no S3 or S4. Prophylactic Antibiotics: The patient does not require prophylactic antibiotics. Prior Anticoagulants: The patient has taken no anticoagulant or antiplatelet agents except for aspirin. ASA Grade Assessment: III - A patient with severe systemic disease. After reviewing the risks and benefits, the patient was deemed in satisfactory condition to undergo the procedure. The anesthesia plan was to use monitored anesthesia care (MAC). Immediately prior to administration of medications, the patient was re-assessed for adequacy to receive sedatives. The physical status of the patient was re-assessed after the procedure. After obtaining informed consent, the endoscope was passed under direct vision. Throughout the procedure, the patient's blood pressure, pulse, and oxygen saturations were monitored continuously. The Scope was introduced through the mouth, and advanced to the duodenal bulb. The upper GI endoscopy was accomplished without difficulty. The patient tolerated the procedure well. Findings: The Z-line was regular and was found 34 cm from the incisors. A medium-sized hiatal hernia was present. The exam of the esophagus was otherwise normal. The entire examined stomach was normal. One non-bleeding cratered duodenal ulcer with a clean ulcer base (Rodolfo Class III) was found in the duodenal bulb. Impression: - Z-line regular, 34 cm from the incisors. - Medium-sized hiatal hernia. - Normal stomach. - One non-bleeding cratered duodenal ulcer with a clean ulcer base (Rodolfo Class III) was found in the duodenal bulb entering into the duodenal sweep. The ulcer could not fully be measured as unable to pass into the second portion of the duodenum as the ulcer was causing narrowing of lumen but appeared to be around 2 cm. Scope could not pass into D2 given luminal narrowing from inflammation. The tissue was very friable and the scope did cause some contact bleeding but the ulcer itself was not noted to be bleeding. - No specimens collected. Recommendation: - [facility]. - Clear liquid diet - Continue present medications. - PPI gtt for 72 hours then 40 mg PO BID - Avoid all NSAIDs as suspect this was NSAID induced as patient admitted to using these for pain control. - If patient were to re-bleed she will need IR intervention for ulcer bleeding. The ulcer was extremely large and in a difficult location at the bulb entering the sweep with associated luminal narrowing and the scope was not able to pass. This ulcer would not be amenable to endoscopic intervention given size and difficult location. No active bleeding seen at the time of endoscopy today. - Repeat EGD in 12 weeks to assess for ulcer healing Wendy Gil, 07/25/2022 10:02:31 AM Note Initiated On: 07/25/2022 9:13 AM Number of Addenda: 0 I attest to the content of the Intraoperative Record and orders documented therein, exceptions below {[id number]}
--- NOTE | 2022-07-25 10:58 | Anesthesiology Progress Note ---
Date of Service July 25, 2022 Anesthesia Post Procedure Vital Signs Vital Signs: Temp Pulse Pulse Pulse Resp BP BP 07/25/22 10:51 07/25/22 10:51 36.8 C 68 18 145/68 H 07/25/22 07:15 36.8 C 68 20 143/68 H 07/25/22 10:26 67 18 145/53 H 07/25/22 10:11 77 18 101/84 07/25/22 09:56 76 18 116/46 L 07/25/22 09:10 36.5 C 91 H 18 155/61 H 07/25/22 08:00 73 07/25/22 08:00 07/25/22 08:00 07/25/22 07:40 36.6 C 74 15 129/61 07/25/22 04:18 78 07/25/22 05:11 36.6 C 73 14 129/61 07/25/22 05:10 36.6 C 74 14 129/61 07/25/22 04:11 36.6 C 71 14 129/69 07/25/22 03:41 36.5 C 73 16 132/70 07/25/22 03:26 36.6 C 79 16 123/69 07/25/22 03:07 36.5 C 73 18 132/66 07/25/22 02:50 79 18 130/63 07/25/22 02:42 07/25/22 02:42 36.3 C L 82 20 07/25/22 02:34 36.3 C L 82 18 07/25/22 00:26 36.8 C 79 18 07/25/22 01:53 36.7 C 75 16 138/62 07/25/22 01:31 36.8 C 75 17 121/65 07/25/22 00:31 36.8 C 83 18 129/62 07/25/22 00:01 36.8 C 83 18 131/65 07/24/22 23:46 83 16 127/60 07/24/22 23:43 36.9 C 18 07/24/22 23:27 36.4 C L 87 18 119/57 L 07/24/22 21:57 90 07/24/22 21:59 37.3 C 97 H 20 07/24/22 21:59 07/24/22 21:59 97 H 07/24/22 21:59 37.2 C 97 H 20 145/67 H BP Pulse Ox Pulse Ox O2 Del Method O2 Del Method 07/25/22 10:51 Room Air 07/25/22 10:51 96 Room Air 07/25/22 07:15 96 07/25/22 10:26 98 Room Air 07/25/22 10:11 99 Room Air 07/25/22 09:56 99 Room Air 07/25/22 09:10 97 Room Air 07/25/22 08:00 07/25/22 08:00 Room Air 07/25/22 08:00 95 Room Air 07/25/22 07:40 96 Room Air 07/25/22 04:18 07/25/22 05:11 94 07/25/22 05:10 94 07/25/22 04:11 94 07/25/22 03:41 95 07/25/22 03:26 96 07/25/22 03:07 99 07/25/22 02:50 98 Room Air 07/25/22 02:42 Room Air 07/25/22 02:42 144/68 H 95 Room Air 07/25/22 02:34 144/68 H Room Air 07/25/22 00:26 138/62 96 Room Air 07/25/22 01:53 98 07/25/22 01:31 97 07/25/22 00:31 97 07/25/22 00:01 99 07/24/22 23:46 99 07/24/22 23:43 07/24/22 23:27 98 07/24/22 21:57 07/24/22 21:59 145/67 H 97 Room Air 07/24/22 21:59 Room Air 07/24/22 21:59 97 Room Air 07/24/22 21:59 100 Room Air Pain Intensity Chest: Pain Intensity: 7 Transfer of Care Handoff Completed per policy Notes Mental Status: alert / awake / arousable and participated in evaluation Patient Amnestic to Procedure: Yes Nausea / Vomiting: adequately controlled Pain: adequately controlled Airway Patency, RR, SpO2: stable & adequate BP & HR: stable & adequate Hydration State: stable & adequate Anesthetic Complications: no major complications apparent and Pt Satisfied with anesthetic care
--- NOTE | 2022-07-25 11:00 | Electrocardiogram Report ---
Test Reason : Blood Pressure : / mmHG Vent. Rate : 072 BPM Atrial Rate : 072 BPM P-R Int : 174 ms QRS Dur : 078 ms QT Int : 412 ms P-R-T Axes : 073 -05 060 degrees QTc Int : 451 ms Normal sinus rhythm Normal ECG When compared with ECG of 11-MAY-2022 16:48, No significant change was found Confirmed by Ricki Mejia ([id number]) on 07/25/2022 11:00:17 AM Referred By: REFERRED SELF Confirmed By:Scar Mejia
[2022-07-25 13:24] LABS: Hematocrit (blood only) 26.6 % (37.0-47.0); Hemoglobin 8.9 g/dl (12.0-16.0)
--- NOTE | 2022-07-25 14:17 | Cardiology Consultation ---
Date of Consultation July 25, 2022 Assessment & Plan (1) Chest pain: (2) Acute GI bleeding: (3) Duodenal ulcer: Plan 66-year-old female presents with noncardiac chest pain in association with profound anemia, duodenal ulcer No further cardiac testing warranted. Further instructions as per gastroenterology No cardiac indications for aspirin Contact if further concerns or questions History of Present Illness Reason for Consultation: Chest/epigastric pain Requesting Physician: Dr. Mcfarlane Attending Physician: Giovanni Mcfarlane MD History of Present Illness Patient is a 66-year-old female without prior history of cardiac disease who presents now noting several weeks history of nausea heartburn abdominal and lower chest discomfort worsening over the past 2 to 3 days with observed dark stools and possible single bloody bowel movement. Patient presented due to worsening fatigue and shortness of breath in addition to above symptoms was found to be profoundly anemic hemoglobin 5.9 Patient treated with IV blood replacement Underwent endoscopy earlier today demonstrating duodenal ulcer Currently improved after transfusion but still feels "weak and washed out." No chest pain or abdominal pain Does noted been taking aspirin, diclofenac, ibuprofen intermittently for pain from hip surgery in May 2022 No prior history of angina, myocardial infarction, rheumatic fever, scarlet fever. No history of valvular disease or heart murmur EKG today normal Echocardiogram with normal LV systolic function and no valvular disease Allergies Allergy/AdvReac Type Severity Reaction Status Date / Time Benzodiazepines Allergy Mild ITCH Verified 07/25/22 00:46 chlordiazepoxide Allergy Mild ITCH Verified 07/25/22 00:46 clidinium Allergy Mild ITCH Verified 07/25/22 00:46 gabapentin Allergy Mild ITCH Verified 07/25/22 00:46 hydrocodone Allergy Mild Itch Verified 07/25/22 00:46 oxycodone Allergy Mild Itch Verified 07/25/22 00:46 tramadol Allergy Mild Itch Verified 07/25/22 02:43 belladonna alkaloids Allergy Unknown ITCHING Verified 07/25/22 00:46 yellow dye Allergy Unknown . Verified 07/25/22 00:46 risedronate sodium Allergy Unknown Verified 07/25/22 00:46 Methscopolamine Allergy Unknown . Uncoded 05/10/22 00:52 Home Medications Medication Instructions Recorded Confirmed Type dicyclomine 10 mg capsule 10 mg PO QID PRN .Abd cramping 05/10/22 07/25/22 History omeprazole 20 mg capsule,delayed 20 mg PO DAILYBB 05/10/22 07/25/22 History release valacyclovir 500 mg tablet 500 mg PO AMPM 05/10/22 07/25/22 History aspirin 325 mg capsule 325 mg PO DAILY #30 caps 05/16/22 07/25/22 Rx acetaminophen 500 mg tablet 500 mg PO TID PRN Pain 07/25/22 07/25/22 History diclofenac sodium 75 mg 75 mg PO BID 07/25/22 07/25/22 History tablet,delayed release Patient History Medical History (Updated 07/25/22 @ 14:23 by Charles Torres MD) Ambulatory dysfunction Bone cancer Cervical cancer "1989 - 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 Treated in [place]. Dr Cespedes. Chemo and radiation. R hip pinning " Closed fracture of proximal end of right femur COVID-19 Encounter for pre-operative examination HTN (hypertension) Lumbar compression fracture Right hip pain RLS (restless legs syndrome) Vulvar neoplasm Surgical History History of hip surgery History of vertebroplasty Family History Other Cancer Heart disease Social History Smoking Status: Current some day smoker Cigarettes Per Day: 2; Second Hand Exposure: No; Tobacco Cessation Education Requested by Patient: No Hx Alcohol Use: No Hx Substance Use: No Preferred Language: Swiss Communication Ability: Effective Office Automation Clerk Required: No Beliefs That Will Affect Care: None Current Living Situation: Alone Other Information That Helps Us Care for You: No Feels Safe at Home: Yes Safety Concerns: Feels Safe At This Time Assistive Devices: None Review of Systems Review of Systems: All systems reviewed & are unremarkable except as noted in HPI & below Physical Exam Constitutional: + ill appearing and + thin; no acute distress Eyes: PERRL, conjunctivae normal, anicteric sclerae ENMT: external ear and nose normal, oropharynx normal Neck: trachea midline, no thyromegaly Respiratory: normal respiratory effort, lungs clear to auscultation Cardiovascular: Rate/Rhythm: regular rate and regular rhythm Heart Sounds: normal S1 and normal S2; no murmur Vessels: no JVD and no carotid bruit Extremities: no edema Gastrointestinal (Abdomen): normal bowel sounds, soft, nontender, no hepatosplenomegaly Musculoskeletal: no cyanosis or clubbing, extremities motor strength 5/5 Skin: no rashes, warm and dry Results & Data Vital Signs (Past 12 Hours) Vital Signs Temp Pulse Pulse Pulse Resp BP BP 07/25/22 10:51 07/25/22 10:51 36.8 C 68 18 145/68 H 07/25/22 07:15 36.8 C 68 20 143/68 H 07/25/22 10:26 67 18 145/53 H 07/25/22 10:11 77 18 101/84 07/25/22 09:56 76 18 116/46 L 07/25/22 09:10 36.5 C 91 H 18 155/61 H 07/25/22 08:00 73 07/25/22 08:00 07/25/22 08:00 07/25/22 07:40 36.6 C 74 15 129/61 07/25/22 04:18 78 07/25/22 05:11 36.6 C 73 14 129/61 07/25/22 05:10 36.6 C 74 14 129/61 07/25/22 04:11 36.6 C 71 14 129/69 07/25/22 03:41 36.5 C 73 16 132/70 07/25/22 03:26 36.6 C 79 16 123/69 07/25/22 03:07 36.5 C 73 18 132/66 07/25/22 02:50 79 18 130/63 07/25/22 02:42 07/25/22 02:42 36.3 C L 82 20 07/25/22 02:34 36.3 C L 82 18 BP Pulse Ox Pulse Ox O2 Del Method O2 Del Method 07/25/22 10:51 Room Air 07/25/22 10:51 96 Room Air 07/25/22 07:15 96 07/25/22 10:26 98 Room Air 07/25/22 10:11 99 Room Air 07/25/22 09:56 99 Room Air 07/25/22 09:10 97 Room Air 07/25/22 08:00 07/25/22 08:00 Room Air 07/25/22 08:00 95 Room Air 07/25/22 07:40 96 Room Air 03/20/23 04:18 07/25/22 05:11 94 07/25/22 05:10 94 07/25/22 04:11 94 07/25/22 03:41 95 07/25/22 03:26 96 07/25/22 03:07 99 07/25/22 02:50 98 Room Air 07/25/22 02:42 Room Air 07/25/22 02:42 144/68 H 95 Room Air 07/25/22 02:34 144/68 H Room Air Laboratory Results Laboratory Results - last 24 hr 07/24/22 07/24/22 07/24/22 22:00 22:00 22:00 WBC 11.41 H RBC 1.81 L Hgb 5.8 L* POC Hgb 6.5 L* Hct 18.3 L* POC Hct 19 L* MCV 101.1 H MCH 32.0 MCHC 31.7 L RDW Std Deviation 57.1 H RDW Coeff of Marcelino 16.1 H Plt Count 473 H MPV 10.0 Immature Gran % (Auto) 0.7 Neut % (Auto) 69.6 Lymph % (Auto) 19.6 Beckham % (Auto) 7.2 Eos % (Auto) 2.2 Baso % (Auto) 0.7 Neut # (Auto) 7.94 H Lymph # (Auto) 2.24 Beckham # (Auto) 0.82 H Eos # (Auto) 0.25 Baso # (Auto) 0.08 Immature Gran # (Auto) 0.08 Hypochromasia Present POC Sodium 141 Sodium 140 POC Potassium 3.5 Potassium 3.5 POC Chloride 104 Chloride 106 Carbon Dioxide 25 POC Total CO2 23 L Anion Gap 9 POC Anion Gap 18.0 POC BUN 23 H BUN 25 H Creatinine 1.23 H POC Creatinine 1.4 H Est Cr Clr Drug Dosing 35.8 Est GFR ( Amer) 52.9 Est GFR (Non-Af Amer) 45.7 BUN/Creatinine Ratio 20.3 H Glucose 109 H POC Glucose POC Glucose (other) 110 H Calcium 8.8 POC Ioniz Calcium Noy 1.16 Magnesium Total Bilirubin 0.3 AST 9 L ALT 3 L Alkaline Phosphatase 97 Total Creatine Kinase 33 Troponin I High Sens 5.3 Total Protein 7.7 Albumin 3.8 Globulin 3.9 Albumin/Globulin Ratio 1.0 Lipase 38 SARS-CoV-2, RNA, NAAT Blood Type Antibody Screen Crossmatch 07/24/22 07/24/22 07/24/22 22:22 22:54 23:57 WBC RBC Hgb POC Hgb Hct POC Hct MCV MCH MCHC RDW Std Deviation RDW Coeff of Marcelino Plt Count MPV Immature Gran % (Auto) Neut % (Auto) Lymph % (Auto) Beckham % (Auto) Eos % (Auto) Baso % (Auto) Neut # (Auto) Lymph # (Auto) Beckham # (Auto) Eos # (Auto) Baso # (Auto) Immature Gran # (Auto) Hypochromasia POC Sodium Sodium POC Potassium Potassium POC Chloride Chloride Carbon Dioxide POC Total CO2 Anion Gap POC Anion Gap POC BUN BUN Creatinine POC Creatinine Est Cr Clr Drug Dosing Est GFR ( Amer) Est GFR (Non-Af Amer) BUN/Creatinine Ratio Glucose POC Glucose POC Glucose (other) Calcium POC Ioniz Calcium Noy Magnesium Total Bilirubin AST ALT Alkaline Phosphatase Total Creatine Kinase Troponin I High Sens 5.8 Total Protein Albumin Globulin Albumin/Globulin Ratio Lipase SARS-CoV-2, RNA, NAAT NEGATIVE Blood Type A Positive Antibody Screen NEGATIVE Crossmatch See Detail 07/25/22 07/25/22 07/25/22 07:18 07:18 11:12 WBC 10.14 RBC 2.67 L Hgb 8.6 L POC Hgb Hct 25.5 L POC Hct MCV 95.5 D MCH 32.2 MCHC 33.7 RDW Std Deviation 57.5 H RDW Coeff of Marcelino 17.0 H Plt Count 327 MPV 9.7 Immature Gran % (Auto) 0.6 Neut % (Auto) 62.0 Lymph % (Auto) 24.8 Beckham % (Auto) 9.1 Eos % (Auto) 2.8 Baso % (Auto) 0.7 Neut # (Auto) 6.30 Lymph # (Auto) 2.51 Beckham # (Auto) 0.92 H Eos # (Auto) 0.28 Baso # (Auto) 0.07 Immature Gran # (Auto) 0.06 Hypochromasia POC Sodium Sodium 139 POC Potassium Potassium 3.6 POC Chloride Chloride 110 H Carbon Dioxide 24 POC Total CO2 Anion Gap 5 POC Anion Gap POC BUN BUN 18 Creatinine 0.96 POC Creatinine Est Cr Clr Drug Dosing 46.3 Est GFR ( Amer) 71.4 Est GFR (Non-Af Amer) 61.6 BUN/Creatinine Ratio 18.8 Glucose 93 POC Glucose 97 POC Glucose (other) Calcium 7.6 L POC Ioniz Calcium Noy Magnesium 1.9 Total Bilirubin AST ALT Alkaline Phosphatase Total Creatine Kinase Troponin I High Sens 6.5 Total Protein Albumin Globulin Albumin/Globulin Ratio Lipase SARS-CoV-2, RNA, NAAT Blood Type Antibody Screen Crossmatch 07/25/22 07/25/22 12:45 12:45 WBC RBC Hgb 8.9 L POC Hgb Hct 26.6 L POC Hct MCV MCH MCHC RDW Std Deviation RDW Coeff of Marcelino Plt Count MPV Immature Gran % (Auto) Neut % (Auto) Lymph % (Auto) Beckham % (Auto) Eos % (Auto) Baso % (Auto) Neut # (Auto) Lymph # (Auto) Beckham # (Auto) Eos # (Auto) Baso # (Auto) Immature Gran # (Auto) Hypochromasia POC Sodium Sodium POC Potassium Potassium POC Chloride Chloride Carbon Dioxide POC Total CO2 Anion Gap POC Anion Gap POC BUN BUN Creatinine POC Creatinine Est Cr Clr Drug Dosing Est GFR ( Amer) Est GFR (Non-Af Amer) BUN/Creatinine Ratio Glucose POC Glucose POC Glucose (other) Calcium POC Ioniz Calcium Noy Magnesium Total Bilirubin AST ALT Alkaline Phosphatase Total Creatine Kinase Troponin I High Sens 5.8 Total Protein Albumin Globulin Albumin/Globulin Ratio Lipase SARS-CoV-2, RNA, NAAT Blood Type Antibody Screen Crossmatch ECG Additional Comments: EKG 07/25/2022 Normal sinus rhythm normal tracing at 72 bpm
--- NOTE | 2022-07-25 14:35 | Hospitalist Progress Note ---
Date of Service July 25, 2022 July 26, 2022 Assessment & Plan (1) Acute blood loss anemia: Plan: Presented with melena for last 3 or 4 days associated with chest pain Acute blood loss anemia secondary to DU ulcer bleeding as below Hemoglobin was 5.8 on admission and received 2 units of blood transfusion Hemoglobin stable No more bleeding as per endoscopy Appreciate GI evaluation and recommendation Has had loose bowel movement which is dark but denies any significant epigastric pain, nausea and or vomiting Hemoglobin remains stable at 8.3 We will continue current dose of IV Protonix and if the hemoglobin remains stable will discharge home in the afternoon on oral Protonix (2) Duodenal ulcer: Plan: Healed duodenal ulcer noted on EGD Not amenable for any procedure Fortunately no more bleeding If any recurrence of bleeding the patient will need to go for IR procedure to stop bleeding (3) Acute GI bleeding: Plan: Secondary to duodenal ulcer Contributed by use of NSAIDs No more NSAIDs Will need outpatient GI follow-up (4) Melena: (5) Chest pain: Plan: Noncardiac Appreciate cardiology input and recommendation Admission and Anticipated Discharge Date Admission Date: July 25, 2022 Subjective 07/25/2022 The patient was seen and examined in telemetry unit She has been feeling much better following blood transfusion Minimal discomfort in the epigastrium 07/26/2022 The patient was seen and examined in telemetry unit She has had loose bowel movement which was dark Hemoglobin has not dropped a bit Denies any significant abdominal pain, nausea and or vomiting Review of Systems Review of Systems: All systems reviewed and are unremarkable except as noted below Physical Exam Physical Exam: Lying in bed comfortably Constitutional: + ill appearing and average body habitus Eyes: PERRL, conjunctivae normal, anicteric sclerae ENMT: external ear and nose normal, oropharynx normal Neck: trachea midline, no thyromegaly Respiratory: no respiratory distress Auscultation: lungs clear to auscultation bilaterally; no crackles Cardiovascular: Rate/Rhythm: regular rate and regular rhythm; not tachycardic Heart Sounds: normal S1 and normal S2; no murmur Extremities: no edema Gastrointestinal (Abdomen): Inspection/Auscultation: normal bowel sounds; abdomen not distended Percussion/Palpation: + abdomen tender (Mildly tender in the epigastrium) and abdomen soft Musculoskeletal: No acute arthritis in any joint Neurologic: normal touch/pain/proprioception and moves all extremities; no focal motor deficits Psychiatric: A+Ox3, euthymic affect Lymphatic: no cervical or axillary lymphadenopathy Results & Data Results & Data Vital Signs (Past 12 Hours) Vital Signs Temp Pulse Pulse Pulse Resp BP BP 07/25/22 10:51 07/25/22 10:51 36.8 C 68 18 145/68 H 07/25/22 07:15 36.8 C 68 20 143/68 H 07/25/22 10:26 67 18 145/53 H 07/25/22 10:11 77 18 101/84 07/25/22 09:56 76 18 116/46 L 07/25/22 09:10 36.5 C 91 H 18 155/61 H 07/25/22 08:00 73 07/25/22 08:00 07/25/22 08:00 07/25/22 07:40 36.6 C 74 15 129/61 07/25/22 04:18 78 07/25/22 05:11 36.6 C 73 14 129/61 07/25/22 05:10 36.6 C 74 14 129/61 07/25/22 04:11 36.6 C 71 14 129/69 07/25/22 03:41 36.5 C 73 16 132/70 07/25/22 03:26 36.6 C 79 16 123/69 07/25/22 03:07 36.5 C 73 18 132/66 07/25/22 02:50 79 18 130/63 07/25/22 02:42 07/25/22 02:42 36.3 C L 82 20 07/25/22 02:34 36.3 C L 82 18 BP Pulse Ox Pulse Ox O2 Del Method O2 Del Method 07/25/22 10:51 Room Air 07/25/22 10:51 96 Room Air 07/25/22 07:15 96 07/25/22 10:26 98 Room Air 07/25/22 10:11 99 Room Air 07/25/22 09:56 99 Room Air 07/25/22 09:10 97 Room Air 07/25/22 08:00 07/25/22 08:00 Room Air 07/25/22 08:00 95 Room Air 07/25/22 07:40 96 Room Air 07/25/22 04:18 07/25/22 05:11 94 07/25/22 05:10 94 07/25/22 04:11 94 07/25/22 03:41 95 07/25/22 03:26 96 07/25/22 03:07 99 07/25/22 02:50 98 Room Air 07/25/22 02:42 Room Air 07/25/22 02:42 144/68 H 95 Room Air 07/25/22 02:34 144/68 H Room Air Laboratory Results Short CBC 07/24/22 07/25/22 07/25/22 Range/Units 22:00 07:18 12:45 WBC 11.41 H 10.14 (4.8-10.8) K/ul Hgb 5.8 L* 8.6 L 8.9 L (12.0-16.0) g/dl Hct 18.3 L* 25.5 L 26.6 L (37.0-47.0) % Plt Count 473 H 327 (130-400) K/uL [facility] 07/24/22 07/25/22 22:00 07:18 Sodium 140 139 Potassium 3.5 3.6 Chloride 106 110 H Carbon Dioxide 25 24 BUN 25 H 18 Creatinine 1.23 H 0.96 Glucose 109 H 93 Calcium 8.8 7.6 L Cardiac Enzymes 07/24/22 Range/Units 22:00 Total Creatine Kinase 33 (26-192) U/L Liver Function 07/24/22 Range/Units 22:00 Total Bilirubin 0.3 (0.2-1.0) mg/dl AST 9 L (13-39) U/L ALT 3 L (7-52) U/L Alkaline Phosphatase 97 (34-104) U/L Albumin 3.8 (3.4-5.0) gm/dl Short CBC 07/25/22 07/26/22 Range/Units 18:26 05:48 WBC 9.62 (4.8-10.8) K/ul Hgb 8.3 L 8.3 L (12.0-16.0) g/dl Hct 25.3 L 25.3 L (37.0-47.0) % Plt Count 306 (130-400) K/uL [facility] 07/26/22 05:48 Sodium 140 Potassium 3.2 L Chloride 112 H Carbon Dioxide 23 BUN 8 Creatinine 0.90 Glucose 88 Calcium 7.3 L Medications Administered Current Inpatient Medications Acetaminophen (Acetaminophen 325 Mg Tab) 650 mg PO Q4H PRN PRN Reason: Pain or Fever Stop: 08/24/22 02:33 Sodium Chloride (Nss 1000ml) 1,000 mls @ 125 mls/hr IV .Q8H [facility] Stop: 08/24/22 02:33 Last Admin: 07/25/22 12:33 Dose: 125 mls/hr Pantoprazole Sodium 40 mg/ (Dextrose) 100 mls @ 20 mls/hr IV Q5H [facility]ARA Stop: 08/24/22 02:59 Last Admin: 07/25/22 12:36 Dose: 8 mg/hr, 20 mls/hr Nitroglycerin (Nitroglycerin Sl 0.4 Mg/Tab Tab) 0.4 mg SL UD PRN PRN Reason: Chest Pain Stop: 08/24/22 02:33 Ondansetron HCl (Ondansetron Inj 2 Mg/Ml 2 Ml Vial) 4 mg IV Q6H PRN PRN Reason: Nausea Stop: 08/24/22 02:33 Valacyclovir HCl (Valacyclovir Hcl 500 Mg Tablet) 500 mg PO BID [facility] Stop: 08/24/22 02:33 Last Admin: 07/25/22 12:33 Dose: 500 mg
[2022-07-25 18:54] LABS: Hematocrit (blood only) 25.3 % (37.0-47.0); Hemoglobin 8.3 g/dl (12.0-16.0)
[2022-07-26] MEDS: SODIUM CHLORIDE 0.9% 1000ML 1,000 ML IV SCH ×2 (00:23→13:02)
[2022-07-26] MEDS: PANTOprazole 40 MG in DEXTROSE 5% 100 ML IV SCH ×4 (03:56→19:20)
[2022-07-26 06:45] LABS: Basophils # (auto) 0.05 K/uL (0-0.2); Basophils % (auto) 0.5 %; Eosinophils # (auto) 0.28 K/uL (0-0.50); Eosinophils % (auto) 2.9 %; Hematocrit (blood only) 25.3 % (37.0-47.0); Hemoglobin 8.3 g/dl (12.0-16.0); Immature Granulocytes # (auto) 0.05 K/uL (0.01-0.20); Immature Granulocytes % (auto) 0.5 %; Lymphocytes # (auto) 1.82 K/uL (1.2-3.4); Lymphocytes % (auto) 18.9 %; Mean Corpuscular Hemoglobin 31.9 pg (25.0-34.0); Mean Corpuscular Hgb Conc 32.8 g/dL (32.0-36.0); Mean Corpuscular Volume 97.3 fL (80.0-100.0); Mean Platelet Volume 9.9 fL (9.4-12.4); Monocytes # (auto) 0.82 K/uL (0.11-0.59); Monocytes % (auto) 8.5 %; Neutrophils % (auto) 68.7 %; Platelet Count 306 K/uL (130-400); RDW Coefficient of Variation 17.3 % (11.5-14.5); RDW Standard Deviation 61.4 fL (36.4-46.3); White Blood Count 9.62 K/ul (4.8-10.8)
[2022-07-26 06:58] LABS: BUN Creatinine Ratio 8.9 (10-20); Calcium 7.3 mg/dl (8.5-10.1); Creatinine Clr Calc Pharmacy 48.1 ml/min; Est GFR (African American) 77.2 ml/min; Est GFR (Non-African American) 66.6 ml/min; Potassium 3.2 mmol/L (3.5-5.1)
[2022-07-26] MEDS: valACYclovir HCL 500 MG TABLET PO SCH ×2 (08:20→21:51)
[2022-07-26] MEDS: ACETAMINOPHEN 325 MG TAB PO PRN ×2 (08:33→21:53)
[2022-07-26] MEDS: POTASSIUM CHLORIDE / WTR 10 MEQ/100 ML PLCT IV SCH ×2 (08:54→09:52)
--- NOTE | 2022-07-26 10:59 | Electrocardiogram Report ---
Test Reason : Blood Pressure : / mmHG Vent. Rate : 076 BPM Atrial Rate : 076 BPM P-R Int : 178 ms QRS Dur : 082 ms QT Int : 404 ms P-R-T Axes : 065 -20 049 degrees QTc Int : 454 ms Normal sinus rhythm Low voltage QRS Borderline ECG When compared with ECG of 25-JUL-2022 02:41, No significant change was found Confirmed by Ricki Mejia ([id number]) on 07/26/2022 10:58:51 AM Referred By: REFERRED SELF Confirmed By:Scar Mejia
[2022-07-27] MEDS: PANTOprazole 40 MG in DEXTROSE 5% 100 ML IV SCH ×5 (00:24→20:05)
[2022-07-27] MEDS: SODIUM CHLORIDE 0.9% 1000ML 1,000 ML IV SCH (00:27)
[2022-07-27 07:11] LABS: Basophils # (auto) 0.06 K/uL (0-0.2); Basophils % (auto) 0.7 %; Eosinophils # (auto) 0.29 K/uL (0-0.50); Eosinophils % (auto) 3.4 %; Hematocrit (blood only) 27.2 % (37.0-47.0); Immature Granulocytes # (auto) 0.03 K/uL (0.01-0.20); Immature Granulocytes % (auto) 0.4 %; Lymphocytes # (auto) 1.74 K/uL (1.2-3.4); Lymphocytes % (auto) 20.6 %; Mean Corpuscular Hemoglobin 32.3 pg (25.0-34.0); Mean Corpuscular Hgb Conc 33.1 g/dL (32.0-36.0); Mean Corpuscular Volume 97.5 fL (80.0-100.0); Mean Platelet Volume 10.2 fL (9.4-12.4); Monocytes # (auto) 0.71 K/uL (0.11-0.59); Monocytes % (auto) 8.4 %; Neutrophils # (auto) 5.62 K/uL (1.40-6.50); Neutrophils % (auto) 66.5 %; Platelet Count 328 K/uL (130-400); RDW Coefficient of Variation 16.9 % (11.5-14.5); RDW Standard Deviation 60.6 fL (36.4-46.3); Red Blood Count 2.79 M/uL (4.20-5.40); White Blood Count 8.45 K/ul (4.8-10.8)
[2022-07-27 07:37] LABS: BUN Creatinine Ratio 6.6 (10-20); Calcium 7.7 mg/dl (8.5-10.1); Creatinine Clr Calc Pharmacy 51.3 ml/min; Est GFR (African American) 76.2 ml/min; Est GFR (Non-African American) 65.7 ml/min; Potassium 3.3 mmol/L (3.5-5.1)
[2022-07-27] MEDS ORDERED: POTASSIUM CHLORIDE CRTAB 20 MEQ TABCR PO STA (08:45)
[2022-07-27] MEDS: valACYclovir HCL 500 MG TABLET PO SCH ×2 (10:02→20:09)
[2022-07-27] MEDS: POTASSIUM CHLORIDE / WTR 10 MEQ/100 ML PLCT IV SCH ×2 (10:02→11:57)
[2022-07-27] MEDS: ACETAMINOPHEN 325 MG TAB PO PRN ×2 (10:17→20:09)
--- NOTE | 2022-07-27 14:18 | Electrocardiogram Report ---
Test Reason : Blood Pressure : / mmHG Vent. Rate : 067 BPM Atrial Rate : 068 BPM P-R Int : 000 ms QRS Dur : 084 ms QT Int : 412 ms P-R-T Axes : 000 -19 117 degrees QTc Int : 435 ms Sinus rhythm Confirmed by Ricki Mejia ([id number]) on 07/27/2022 2:18:36 PM Referred By: REFERRED SELF Confirmed By:Scar Mejia
--- NOTE | 2022-07-27 15:19 | Ultrasound Report ---
US gallbladder CLINICAL HISTORY: R/O Gallstones COMPARISON STUDY: CT of the abdomen and pelvis July 24, 2022. FINDINGS: No hepatic lesions are identified. Liver morphology is normal. There is no biliary ductal d ilatation. The common bile duct measures 5 mm in caliber. There are no gallstones. No gallbladder wal l thickening. A few tiny gallbladder polyps measure up to 3 mm. Pancreas is partially obscured. Right pleural effusion is incidentally noted. IMPRESSION: 1. No gallstones or biliary ductal dilatation. A few tiny gallbladder polyps. 2. Obscured pancreas. 3. Right pleural effusion. ACT 112: Negative or not required by law. Electronically signed by: Geovany Wiley M.D. 07/27/2022 3:18 PM
--- NOTE | 2022-07-27 16:41 | Hospitalist Progress Note ---
Date of Service July 27, 2022 Assessment & Plan (1) Acute blood loss anemia: Plan: Presented with melena for last 3 or 4 days associated with chest pain Acute blood loss anemia secondary to DU ulcer bleeding as below Hemoglobin was 5.8 on admission and received 2 units of blood transfusion Hemoglobin stable No more bleeding as per endoscopy Appreciate GI evaluation and recommendation Has had loose bowel movement which is dark but denies any significant epigastric pain, nausea and or vomiting Hemoglobin remains stable at 8.3 We will continue current dose of IV Protonix and if the hemoglobin remains stable will discharge home in the afternoon on oral Protonix Hemoglobin remains stable at 9.0-no evidence of acute bleeding Still has some epigastric discomfort and not yet ready to be discharged Ultrasound of the abdomen did not show any gallstones We will continue current dose of Protonix and likely be discharged tomorrow (2) Duodenal ulcer: Plan: Healed duodenal ulcer noted on EGD Not amenable for any procedure Fortunately no more bleeding If any recurrence of bleeding the patient will need to go for IR procedure to stop bleeding No evidence of recurrent bleeding-the patient is worried about recurrence Will give her tonight and get PT and OT evaluation prior to discharge (3) Acute GI bleeding: Plan: Secondary to duodenal ulcer Contributed by use of NSAIDs No more NSAIDs Will need outpatient GI follow-up (4) Melena: Plan: Will have melena for the next few days or so (5) Chest pain: Plan: Noncardiac Appreciate cardiology input and recommendation Admission and Anticipated Discharge Date Admission Date: July 25, 2022 Subjective 07/25/2022 The patient was seen and examined in telemetry unit She has been feeling much better following blood transfusion Minimal discomfort in the epigastrium 07/26/2022 The patient was seen and examined in telemetry unit She has had loose bowel movement which was dark Hemoglobin has not dropped a bit Denies any significant abdominal pain, nausea and or vomiting 07/27/2022 The patient was seen and examined in telemetry unit She complains to have bloating of abdomen following food for the last few weeks or so Also has epigastric discomfort Denies any nausea and or vomiting Review of Systems Review of Systems: All systems reviewed and are unremarkable except as noted below Physical Exam Physical Exam: Lying in bed comfortably Constitutional: + ill appearing and average body habitus Eyes: PERRL, conjunctivae normal, anicteric sclerae ENMT: external ear and nose normal, oropharynx normal Neck: trachea midline, no thyromegaly Respiratory: no respiratory distress Auscultation: lungs clear to auscultation bilaterally; no crackles Cardiovascular: Rate/Rhythm: regular rate and regular rhythm; not tachycardic Heart Sounds: normal S1 and normal S2; no murmur Extremities: no edema Gastrointestinal (Abdomen): Inspection/Auscultation: normal bowel sounds; abdomen not distended Percussion/Palpation: + abdomen tender (Mildly tender in the epigastrium) and abdomen soft Musculoskeletal: No acute arthritis involving any joint Neurologic: normal touch/pain/proprioception and moves all extremities; no focal motor deficits Psychiatric: A+Ox3, euthymic affect Lymphatic: no cervical or axillary lymphadenopathy Results & Data Results & Data Vital Signs (Past 12 Hours) Vital Signs Temp Pulse Resp BP Pulse Ox O2 Del Method 07/27/22 15:29 36.9 C 69 18 124/62 96 Room Air 07/27/22 11:49 36.7 C 78 18 146/64 H 95 Room Air 07/27/22 08:00 Room Air 07/27/22 07:19 36.7 C 76 18 157/72 H 97 Room Air Laboratory Results Short CBC 07/27/22 Range/Units 05:55 WBC 8.45 (4.8-10.8) K/ul Hgb 9.0 L (12.0-16.0) g/dl Hct 27.2 L (37.0-47.0) % Plt Count 328 (130-400) K/uL BMP 07/27/22 05:55 Sodium 141 Potassium 3.3 L Chloride 114 H Carbon Dioxide 21 BUN 6 Creatinine 0.91 Glucose 82 Calcium 7.7 L Medications Administered Current Inpatient Medications Acetaminophen (Acetaminophen 325 Mg Tab) 650 mg PO Q4H PRN PRN Reason: Pain or Fever Stop: 08/24/22 02:33 Last Admin: 07/27/22 10:17 Dose: 650 mg Pantoprazole Sodium 40 mg/ (Dextrose) 100 mls @ 20 mls/hr IV Q5H SARA Stop: 08/24/22 02:59 Last Admin: 07/27/22 16:09 Dose: 8 mg/hr, 20 mls/hr Nitroglycerin (Nitroglycerin Sl 0.4 Mg/Tab Tab) 0.4 mg SL UD PRN PRN Reason: Chest Pain Stop: 08/24/22 02:33 Ondansetron HCl (Ondansetron Inj 2 Mg/Ml 2 Ml Vial) 4 mg IV Q6H PRN PRN Reason: Nausea Stop: 08/24/22 02:33 Valacyclovir HCl (Valacyclovir Hcl 500 Mg Tablet) 500 mg PO BID [facility] Stop: 08/24/22 02:33 Last Admin: 07/27/22 10:02 Dose: 500 mg
[2022-07-28] MEDS: PANTOprazole 40 MG in DEXTROSE 5% 100 ML IV SCH ×3 (01:05→11:15)
[2022-07-28] MEDS: ACETAMINOPHEN 325 MG TAB PO PRN ×2 (06:06→10:14)
[2022-07-28 08:04] LABS: Basophils # (auto) 0.04 K/uL (0-0.2); Basophils % (auto) 0.4 %; Eosinophils % (auto) 4.4 %; Hematocrit (blood only) 26.5 % (37.0-47.0); Hemoglobin 8.8 g/dl (12.0-16.0); Immature Granulocytes # (auto) 0.05 K/uL (0.01-0.20); Immature Granulocytes % (auto) 0.6 %; Lymphocytes # (auto) 1.78 K/uL (1.2-3.4); Lymphocytes % (auto) 19.7 %; Mean Corpuscular Hemoglobin 31.7 pg (25.0-34.0); Mean Corpuscular Hgb Conc 33.2 g/dL (32.0-36.0); Mean Corpuscular Volume 95.3 fL (80.0-100.0); Mean Platelet Volume 10.3 fL (9.4-12.4); Monocytes # (auto) 0.72 K/uL (0.11-0.59); Neutrophils # (auto) 6.06 K/uL (1.40-6.50); Neutrophils % (auto) 66.9 %; Platelet Count 342 K/uL (130-400); RDW Coefficient of Variation 16.4 % (11.5-14.5); Red Blood Count 2.78 M/uL (4.20-5.40); White Blood Count 9.05 K/ul (4.8-10.8)
[2022-07-28 08:29] LABS: Calcium 8.1 mg/dl (8.6-10.3); Creatinine Clr Calc Pharmacy 45.7 ml/min; Est GFR (Non-African American) 58.7 ml/min; Potassium 3.6 mmol/L (3.5-5.1)
[2022-07-28] MEDS: valACYclovir HCL 500 MG TABLET PO SCH (10:12)
[2022-07-28] MEDS ORDERED: PANTOprazole 40 MG TAB PO SCH (11:40)
--- NOTE | 2022-07-28 11:54 | Discharge Summary ---
Date of Service July 28, 2022 Admission HPI Per Admitting Provider CHIEF COMPLAINT: Chest pain and also has melena. 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 The patient is having chest pain, abdominal pain, heartburn, nausea going for 2-3 weeks. Chest pain is on and off, but lately getting more constant. No aggravating or alleviating factors. She also noticed some black stools. No hematuria, but not making much urine. Appetite is down. Denies any fevers. No cough. Pounding of heart feeling in the ears. Runny nose is better. No sore throat. No difficulty swallowing. Has some headache. Vision is okay. Denies any fevers. In the ER, the labs showed hemoglobin of 5.8. The patient was here in May with right hip pain at that time showed right hip femoral fracture, nondisplaced, status post right hip hardware removal and long cephalomedullary nailing of periprosthetic intertrochanteric femur fracture done. She was on aspirin for DVT prophylaxis . Currently not taking aspirin per the patient, but she is still taking diclofenac sodium for back pain, states she has been not taking much for the last 2 weeks because she thought her symptoms could be from it, but last dose was 3 days ago. She states a few days back when she moved her bowels and came back, she felt dizzy, sweaty and had one episode of vomiting. Currently alert and oriented, hemodynamically stable. ALLERGIES: TO BENZODIAZEPINES, CHLORDIAZEPOXIDE, CLIDINIUM, GABAPENTIN, HYDROCODONE, OXYCODONE, BELLADONNA ALKALOIDS, YELLOW DYE, RISEDRONATE, TRAMADOL, METHSCOPOLAMINE. PAST MEDICAL HISTORY: As mentioned above. PAST SURGICAL HISTORY: Chemotherapy, colonoscopy, lumbar kyphoplasty in 12/2021, Pap screens, radiation treatment, removal of ovaries, revision of hip bone, total hysterectomy. MEDICATIONS: The patient is on Tylenol Rapid Release 500 mg p.o. t.i.d. p.r.n., aspirin, diclofenac sodium 75 mg p.o. b.i.d., dicyclomine 10 mg p.o. q.i.d. p.r.n., omeprazole 20 mg p.o. daily, Valacyclovir 500 mg p.o. b.i.d. FAMILY HISTORY: Significant for mother had lung cancer; father of MS. SOCIAL HISTORY: , lives alone, ambulates with a walker. Smokes quarter pack a day for the last 45 years. No alcohol, no drug use. REVIEW OF SYSTEMS: As per HPI. Rest of the review of systems is negative. Admission Exam Per Admitting Provider GENERAL: The patient is of moderate build, not in acute distress. VITAL SIGNS: Temperature 36.8, pulse 83, respiratory rate 18, blood pressure 129/62, oxygen 97% on room air. HEENT: Pupils equal, round and reactive to light. Oral mucosa dry. NECK: No JVD or neck masses. CARDIOVASCULAR: S1 and S2 heard. Regular rate and rhythm. No murmur, no gallop. RESPIRATORY SYSTEM: Normal AP diameter. No accessory muscle use. No wheezing, no crackles. ABDOMEN: Soft, bowel sounds present, nontender, no distention. CENTRAL NERVOUS SYSTEM: Alert and oriented. Speech is clear. No facial droop. Insight is okay. Obeys simple commands. Moves extremities. EXTREMITIES: No edema, no erythema. Principal Diagnosis Acute blood loss anemia likely secondary to bleeding duodenal ulcer Chest pain, likely noncardiac Discharge Exam GENERAL: Alert and oriented x3. NAD, on RA. HEENT: No pallor, no icterus. Pupils equal, round and reactive to light. Oral mucosa moist. NECK: No JVD, no neck masses. HEART: S1 and S2 heard. Regular rate and rhythm. No murmur, no gallop. RESPIRATORY SYSTEM: Normal AP diameter. No accessory muscle use. No wheezing, no crackles. ABDOMEN: Soft, bowel sounds present, nontender, no distention. CENTRAL NERVOUS SYSTEM: No facial droop. Speech is clear. Obeys simple commands. Moves extremities. EXTREMITIES: No edema, no erythema seen. Discharge Data Allergies Allergy/AdvReac Type Severity Reaction Status Date / Time Benzodiazepines Allergy Mild ITCH Verified 07/25/22 00:46 chlordiazepoxide Allergy Mild ITCH Verified 07/25/22 00:46 clidinium Allergy Mild ITCH Verified 07/25/22 00:46 gabapentin Allergy Mild ITCH Verified 07/25/22 00:46 hydrocodone Allergy Mild Itch Verified 07/25/22 00:46 oxycodone Allergy Mild Itch Verified 07/25/22 00:46 tramadol Allergy Mild Itch Verified 07/25/22 02:43 belladonna alkaloids Allergy Unknown ITCHING Verified 07/25/22 00:46 yellow dye Allergy Unknown . Verified 07/25/22 00:46 risedronate sodium Allergy Unknown Verified 07/25/22 00:46 Methscopolamine Allergy Unknown . Uncoded 05/10/22 00:52 Consultations 07/24/22 23:40 ED Decision to Admit Stat 07/25/22 08:00 Consult Cardiology Routine Consult Gastroenterology Routine Procedures Performed Operation Date: 07/25/22 18:15 Actual Procedures p Esophagogastroduodenoscopy - Wendy Gil, Ordered Studies 07/24/22 21:56 CT angio chest PE protocol Stat 07/24/22 22:09 CT Abd and Pelvis [CT abd pelvis IV con only] Stat 07/27/22 10:19 US gallbladder Routine Hospital Course (1) Duodenal ulcer: (2) Acute blood loss anemia: Plan Patient was managed and evaluated for acute blood loss anemia likely secondary to bleeding duodenal ulcer likely secondary to NSAID use. GI evaluated, underwent EGD scope on 07/25 which revealed 1 nonbleeding cratered duodenal ulcer with clean ulcer base. Fortunately her hemoglobin stayed stable or else owing to the location of her duodenal ulcer it would have needed IR intervention if it were to rebleed. Patient to follow-up with PCP in a week time and have labs drawn. Patient also to follow-up with GI doctor in 4 to 6 weeks time and likely will need repeat EGD scope in 12 weeks time. Patient made aware to avoid any aspirin or NSAIDs. Patient will be started on Protonix 40 mg twice daily. Patient reports feeling better and improving epigastric pain. Patient has been tolerating diet okay. Patient reports moving bowels okay. She is being discharged home with following instruction at the point of discharge: Follow-up with your primary care physician within a week time and likely you will need labs CBC/CMP/magnesium/phosphorus. GI evaluated you, you underwent EGD scope which revealed 1 nonbleeding cratered duodenal ulcer in the duodenal bulb. Continue with Protonix twice a day, take h fci an hour prior to meal in an empty stomach. Avoid aspirin/NSAIDs (like diclofenac/motrin/alieve) as discussed at the bedside. Follow-up with GI doctor in 4 to 6 weeks time. You will need repeat EGD scope in 12 weeks to document healing of the ulcer. You can use OTC tylenol for pain management. Take your medications as prescribed. Please make sure that you are able to get your medications today by calling your pharmacy before you leave the hospital so that your treatment continuity is not broken. Home Health Attestation I certify that this patient is under my care and that I, or a physicians assistant professor of theater working with me, had a face to-face encounter that meets the home health [id number] encounter requirements with this patient. The encounter with the patient was in whole, or in part, for the following medical condition, which is the primary reason for home health care (list medical condition): chest pain-melena I certify that, based on my findings, the following services are medically necessary home health services: My clinical findings support the need for the above services because: OT Assess ADL Status and Restore Function w ADLs PT Assessment for Endurance / Balance / Strength PT Eval for Safety and Mobility PT Eval for Safety, Gait Training, Assistive Devices PT Gait and Balance Training, Strengthening and Safety Skilled Nsg Assessment Further, I certify that my clinical findings support that this patient is homebound (i.e. absences from home require considerable and taxing effort and are for medical reasons or orthodox services or infrequently or of short duration when for other reasons) because: Supportive Aid - Walker Transportation Assistance/Unable to Leave Home Unassisted Certification for Home Health Services: Based on the above findings, I certify that this patient is confined to the home and needs intermittent fci care, physical therapy and/or speech therapy or continues to need occupational therapy. The patient is under my care, and I have initiated the establishment of the plan of care. This patient will be followed by a physician who will periodically review the plan of care. Total Time Total Time Spent Total Time Spent (In Minutes): 45 Discharge Plan Discharge Items Patient Disposition: Home - Home Health Services Reason For Visit: CHEST PAIN, MELENA Discharge Diagnosis: Acute blood loss anemia likely secondary to bleeding duodenal ulcer Chest pain, likely noncardiac Condition on Discharge: Good Activity: Resume your previous activity Non-emergency contact: Primary Care Provider Call non-emergency contact if: you have any medication questions, your symptoms worsen, your pain is worsening and your temperature is above 101 Follow-up/Referrals: Ludwig Garcia DO [Primary Care Provider] - (Date & Time 08/02/2022 11:00 AM Provider Izzy Mckeon DO Department [facility] ) Diet: Regular and Lactose Intolerant Addtl Attending Provider Instructions: Follow-up with your primary care physician within a week time and likely you will need labs CBC/CMP/magnesium/phosphorus. GI evaluated you, you underwent EGD scope which revealed 1 nonbleeding cratered duodenal ulcer in the duodenal bulb. Continue with Protonix twice a day, take half an hour prior to meal in an empty stomach. Avoid aspirin/NSAIDs (like diclofenac/motrin/alieve) as discussed at the bedside. Follow-up with GI doctor in 4 to 6 weeks time. You will need repeat EGD scope in 12 weeks to document healing of the ulcer. You can use OTC tylenol for pain management. Take your medications as prescribed. Please make sure that you are able to get your medications today by calling your pharmacy before you leave the hospital so that your treatment continuity is not broken. Pending Studies at Discharge: No Stand-Alone Forms: My [facility], Smoking Cessation Medications and DC Order Prescriptions: New pantoprazole 40 mg Tablet,Delayed Release (Dr/Ec) 40 mg PO BID Qty: 60 0RF Continued valacyclovir 500 mg tablet 500 mg PO AMPM dicyclomine 10 mg capsule 10 mg PO QID PRN (Reason: .Abd cramping) acetaminophen [Tylenol Ex Str Rapid Release] 500 mg Tablet 500 mg PO TID PRN (Reason: Pain) Discontinued omeprazole 20 mg capsule,delayed release(DR/EC) 20 mg PO DAILYBB aspirin 325 mg capsule 325 mg PO DAILY Qty: 30 0RF diclofenac sodium 75 mg tablet,delayed release (DR/EC) 75 mg PO BID Rx Instructions: TAKE THIS MEDICNE WITH FOOD Discharge Orders: Discharge Order (Routine); Ordered 07/28/22 Ordered By: Diane Fletcher Admission Data Admit Date/Time: 07/25/22 01:09 Attending Provider: Diane Fletcher Admit Provider: Kang Swift Primary Care Provider: Ludwig Garcia Other Providers: Wendy Rascon ; Ezequiel Mccarthy ; Edward Aguayo ; Charles Torres ; Fabien Eaton ; Sheng Heredia ; Arnold Palomares ; Bren Branch ; Kiersten Stokes ; Wendy Colon ; Jonnie Urena ; Primitivo Conn ; Isaac Mora ; Mary Gonzalez ; Joan Narayanan ; Louise Matthew ; Giana Werner ; Carmine Barrios ; Eladio Quinn ; Mariel Velásquez ; Adrien Ross ; Yasir Hernandez ; Sandra Brennan ; Glenys Jeronimo ; Olga Lidia Kuo ; Grisel Steven ; Edward Hedrick ; Nile Laws ; Brock Mcbride ; Wendy Gil ; Gopi Valdes Jr ; Kang Swift Other Interventions: Discharge Summary Assessment (RN) Last Done: 07/25/22 10:00
== END 2022-07-28 14:11 | disposition home health service (06) | DRG 378 ==
LOC: ED 21:46 → 2S 07-25 01:09 → SUATTDRO 07-25 01:09 → 2S 07-25 02:50